=== PATIENT | female | born 1940 | race Caucasian/White ===

== ENCOUNTER 2018-04-16 10:54 | Inpatient (IN) | payer MEDICARE, OTHER ==
--- NOTE | 2018-04-16 11:23 | ERPHSYRPT ---
- History of Present Illness Time Seen by Provider: 04/16/18 11:18 Source: patient Patient Subjective Stated Complaint: pt reports feeling short of breath the last 3-4 days. states she also noticed swelling to her feet that is abnormal for her. pt reports she has not had any medical care in 40 years. Triage Nursing Assessment: pt is aox3, pupils perrl, pt afebrile, pt short of breath at rest, pt is able to speak in 3-4 word sentences, pt lung sounds are diminished with some crackles to the bases bilateral. radial pulses are strong and equal. +2 pitting edema noted to the bilateral extremities. intermittent productive cough noted upon exam. pt skin pale warm dry. Physician History: The patient is a 78-year-old female with her complaining of increasing shortness of breath for the last 4 days. Also for the last 4 days, her feet have been swelling. She has not seen a medical doctor in the last 40 years. She denies chest pain or fever. She denies nausea or vomiting. When she goes to bed at night and tries to lay flat, she becomes short of breath. She then sits up in the recliner and can breathe okay sleep. She has no local doctor. She has smoked cigarettes for many years and continues to smoke. She was brought in by ambulance and was given an albuterol nebulizer treatment and Solu- Medrol by IV. She is feeling better now. Timing/Duration: day(s) (4), gradual onset, worse Activities at Onset: none Severity of Dyspnea-Max: moderate Severity of Dyspnea-Current: moderate Possible Cause: no prior episodes, smoke exposure Modifying Factors: Improves With: lying down (worse) Associated Symptoms: cough, edema, ankle swelling, leg swelling Allergies/Adverse Reactions: No Known Drug Allergies Allergy (Unverified 04/16/18 11:11) Home Medications: No Reportable Medications [No Reported Medications] 04/16/18 [History] Hx Tetanus, Diphtheria Vaccination/Date Given: No Hx Influenza Vaccination/Date Given: No Hx Pneumococcal Vaccination/Date Given: No Immunizations Up to Date: Yes - Review of Systems Constitutional: No Fever, No Chills Eyes: No Symptoms Ears, Nose, & Throat: No Symptoms Respiratory: Cough, Dyspnea Cardiac: Edema Abdominal/Gastrointestinal: No Abdominal Pain, No Nausea, No Vomiting, No Diarrhea Genitourinary Symptoms: No Dysuria Musculoskeletal: No Back Pain, No Neck Pain Skin: No Rash Neurological: No Dizziness, No Focal Weakness, No Sensory Changes Psychological: No Symptoms Endocrine: No Symptoms Hematologic/Lymphatic: No Symptoms Immunological/Allergic: No Symptoms All Other Systems: Reviewed and Negative - Past Medical History Pertinent Past Medical History: Yes Cardiac History: Hypertension - Past Surgical History Past Surgical History: No - Social History Smoking Status: Current every day smoker Drug Use: none Patient Lives Alone: No - Female History Hx Now: No - Nursing Vital Signs Nursing Vital Signs: Initial Vital Signs Temperature 97.8 F 04/16/18 10:55 Pulse Rate 114 H 04/16/18 10:55 Respiratory Rate 26 H 04/16/18 10:55 Blood Pressure 205/140 04/16/18 10:55 O2 Sat by Pulse Oximetry 90 L 04/16/18 10:55 Pain Scale Pain Intensity 0 - Physical Exam General Appearance: mild distress, thin Eye Exam: PERRL/EOMI Ears, Nose, Throat Exam: hearing grossly normal Neck Exam: normal inspection, supple Respiratory Exam: diminished breath sounds, prolonged expirations, crackles/ rales, No wheezing Cardiovascular/Chest Exam: regular rate/rhythm, murmur (III/IV), edema ( bilateral feet) Abdominal/Gastrointestinal Exam: soft, No tenderness, No distention, No mass Rectal Exam: not done Extremity Exam: non-tender, normal range of motion, normal inspection, no calf tenderness, no pedal edema Neurologic Exam: alert, oriented x 3, cooperative, pharmaceutical analyst II-XII nml as tested, sensation nml, No motor deficits Skin Exam: normal color, warm, No dry SpO2 Interpretation: borderline oxygenation SpO2: 90 Oxygen Delivery: Nasal Cannula (2) - Course EKG Interpreted by Me: RATE, Sinus Rhythm, NORMAL AXIS, NORMAL INTERVALS, NORMAL QRS, NORMAL ST-T - Radiology Exams Chest X-ray Interpretation: Interpreted by me, Other (COPD, granulomas, no effusion, no consolidation.) - CT Exams Chest CT Interpretation: Tele-radiologist Report (Per Dr Wiley), Other (bronchitis and interstitial pneumonitis; no focal consolidation; ) Ordered Tests: Active Orders 24 hr Category Date Time Status EKG-ER Only STAT Care 04/16/18 11:24 Active IV Insertion STAT Care 04/16/18 11:24 Active Oxygen-ED Only NASAL CANNULA 2 lpm Care 04/16/18 11:24 Active Pulse Oximetry (ED) STAT Care 04/16/18 11:24 Active CHEST 2 VIEWS (PA AND LAT) Stat Exams 04/16/18 11:41 Taken CHEST WITH CONTRAST [CT] Stat Exams 04/16/18 13:25 Taken CBC W DIFF Stat Lab 04/16/18 11:45 Completed CMP Stat Lab 04/16/18 11:45 Completed Lactic Acid Stat Lab 04/16/18 11:50 Completed Manual Differential NC Stat Lab 04/16/18 11:45 Completed NT PRO BNP Stat Lab 04/16/18 11:45 Completed TROPONIN Q3H Lab 04/16/18 11:45 Completed TROPONIN Q3H Lab 04/16/18 14:30 Ordered TROPONIN Q3H Lab 04/16/18 17:30 Ordered TROPONIN Q3H Lab 04/16/18 20:30 Ordered TROPONIN Q3H Lab 04/16/18 23:30 Ordered Medication Summary Discontinued Medications Generic Name Dose Route Start Last Admin Trade Name Freq PRN Reason Stop Dose Admin Furosemide 40 mg 04/16/18 11:24 04/16/18 11:43 Lasix 40 Mg/4 Ml IV 04/16/18 11:25 40 mg STAT ONE Administration Furosemide Confirm 04/16/18 11:30 Lasix 40 Mg/4 Ml Administered 04/16/18 11:31 Dose 40 mg .ROUTE .STK-MED ONE Labetalol HCl 20 mg 04/16/18 13:19 04/16/18 13:24 Trandate 20 Mg/5 Ml Syringe IV 04/16/18 13:20 20 mg STAT ONE Administration Labetalol HCl Confirm 04/16/18 13:21 Trandate 100 Mg/20 Ml Mdv For Drip Administered 04/16/18 13:22 Dose 100 mg IV .STK-MED ONE Lab/Rad Data: Laboratory Result Diagrams 04/16/18 11:45 04/16/18 11:45 Laboratory Results 04/16/18 04/16/18 04/16/18 Range/Units 11:50 11:45 11:45 WBC (4.0-10.5) K/mm3 RBC (4.1-5.4) M/mm3 Hgb (12.0-16.0) gm/dl Hct (35-47) % MCV (78-100) fl MCH (26-32) pg MCHC (32-36) g/dl RDW (11.5-14.0) % Plt Count (150-450) K/mm3 MPV (6-9.5) fl Absolute Granulocytes (1.4-6.9) Segmented Neutrophils (36.0-66.0) % Lymphocytes (Manual) (24-44) % Monocytes (Manual) (0.0-12.0) % Platelet Estimate (NORMAL) RBC Morphology Poikilocytosis Anisocytosis Sodium 138 (137-145) mmol/L Potassium 4.4 (3.5-5.1) mmol/L Chloride 93 L (98-107) mmol/L Carbon Dioxide 36 H (22-30) mmol/L Anion Gap 12.8 (5-15) MEQ/L BUN 16 (7-17) mg/dL Creatinine 0.85 (0.52-1.04) mg/dL Estimated GFR > 60.0 ML/MIN Glucose 110 H (74-106) mg/dL Lactic Acid 1.3 (0.4-2.0) Calcium 9.3 (8.4-10.2) mg/dL Total Bilirubin 0.40 (0.2-1.3) mg/dL AST 28 (14-36) U/L ALT 18 (0-35) U/L Alkaline Phosphatase 118 (38-126) U/L Troponin I 0.041 H* (0.000-0.034) ng/mL NT-Pro-B Natriuret Pep 3840 H (0-1800) pg/mL Serum Total Protein 7.1 (6.3-8.2) g/dL Albumin 4.2 (3.5-5.0) g/dL 04/16/18 Range/Units 11:45 WBC 13.3 H (4.0-10.5) K/mm3 RBC 4.49 (4.1-5.4) M/mm3 Hgb 9.6 L (12.0-16.0) gm/dl Hct 32.3 L (35-47) % MCV 71.9 L (78-100) fl MCH 21.3 L (26-32) pg MCHC 29.7 L (32-36) g/dl RDW 19.2 H (11.5-14.0) % Plt Count 508 H (150-450) K/mm3 MPV 9.5 (6-9.5) fl Absolute Granulocytes 11.36 H (1.4-6.9) Segmented Neutrophils 95 H (36.0-66.0) % Lymphocytes (Manual) 3 L (24-44) % Monocytes (Manual) 2 (0.0-12.0) % Platelet Estimate NORMAL (NORMAL) RBC Morphology ABNORMAL Poikilocytosis 1+ Anisocytosis 1+ Sodium (137-145) mmol/L Potassium (3.5-5.1) mmol/L Chloride (98-107) mmol/L Carbon Dioxide (22-30) mmol/L Anion Gap (5-15) MEQ/L BUN (7-17) mg/dL Creatinine (0.52-1.04) mg/dL Estimated GFR ML/MIN Glucose (74-106) mg/dL Lactic Acid (0.4-2.0) Calcium (8.4-10.2) mg/dL Total Bilirubin (0.2-1.3) mg/dL AST (14-36) U/L ALT (0-35) U/L Alkaline Phosphatase (38-126) U/L Troponin I (0.000-0.034) ng/mL NT-Pro-B Natriuret Pep (0-1800) pg/mL Serum Total Protein (6.3-8.2) g/dL Albumin (3.5-5.0) g/dL - Progress Progress: improved Air Movement: fair Blood Culture(s) Obtained: Yes Antibiotics given: No Discussed with : Jassi Will see patient in: hospital (full admit) (per Dr Keene) Counseled pt/family regarding: lab results, diagnosis, rad results - Departure Time of Disposition: 14:53 Departure Disposition: In-patient Admission (per Dr Keene) Clinical Impression: Dyspnea, HTN (hypertension) Condition: Stable Critical Care Time: No Referrals: ARNOLD FRANCO [Primary Care Provider] -
[2018-04-16] MEDS ORDERED: Lasix 40 MG/4 ML IV ONE (11:24)
[2018-04-16] MEDS ORDERED: Lasix 40 MG/4 ML ONE (11:30)
[2018-04-16 12:25] LABS: ALBUMIN 4.2 g/dL (3.5-5.0); ALKALINE PHOSPHATASE 118 U/L (38-126); ANION GAP 12.8 MEQ/L (5-15); BLOOD UREA NITROGEN 16 mg/dL (7-17); CHLORIDE 93 mmol/L (98-107); Calcium 9.3 mg/dL (8.4-10.2); Carbon Dioxide 36 mmol/L (22-30); Creatinine 1 0.85 mg/dL (0.52-1.04); Glucose 110 mg/dL (74-106); NT PRO BNP 3840 pg/mL (0-1800); Potassium 4.4 mmol/L (3.5-5.1); SGOT/AST 28 U/L (14-36); SGPT/ALT 18 U/L (0-35); SODIUM 138 mmol/L (137-145); Total Protein 7.1 g/dL (6.3-8.2)
[2018-04-16 12:27] LABS: Granulocyte Absolute (ANC) 11.36 (1.4-6.9); Hematocrit 32.3 % (35-47); Hemoglobin 9.6 gm/dl (12.0-16.0); Mean Cell Volume 71.9 fl (78-100); Mean Corpuscular Hgb Concent. 29.7 g/dl (32-36); Mean Platelet Volume 9.5 fl (6-9.5); Platelet Count 508 K/mm3 (150-450); Red Blood Count 4.49 M/mm3 (4.1-5.4); Red Cell Distribution Width 19.2 % (11.5-14.0); White Blood Count 13.3 K/mm3 (4.0-10.5)
[2018-04-16 12:32] LABS: Mean Corpuscular Hemoglobin 21.3 pg (26-32)
[2018-04-16] MEDS ORDERED: TRANDATE 20 MG/5 ML SYRINGE IV ONE (13:19)
[2018-04-16 13:21] LABS: Lymphocytes 3 % (24-44); Monocyte 2 % (0.0-12.0); Neutrophils 95 % (36.0-66.0); Total Cells Counted 100
[2018-04-16] MEDS ORDERED: TRANDATE 100 MG/20 ML MDV FOR DRIP IV ONE (13:21)
[2018-04-16 13:23] LABS: ANISOCYTOSIS 1+; Platelet Estimate NORMAL (NORMAL); Poikilocytosis 1+
[2018-04-16] MEDS ORDERED: PROVENTIL 2.5 MG/3 ML NEB IH SCH (15:13)
[2018-04-16] MEDS ORDERED: Sodium Chloride 0.9% 1000 ML 1,000 ML IV SCH (15:13)
[2018-04-16] MEDS ORDERED: DUONEB 0.5-3 MG/3 ml Neb IH ONE (16:05)
[2018-04-16] MEDS: DUONEB 0.5-3 MG/3 ml Neb IH SCH ×3 (16:06→23:47)
[2018-04-16] MEDS: ROCEPHIN 1 Gm-D5w 50 ml Bag** 1 G/50 ML IVPB IV SCH (16:07)
[2018-04-16] MEDS: solu-MEDROL 125 MG IV SCH ×2 (18:03→23:33)
[2018-04-16] MEDS: LOPRESSOR 5 MG/5 ML INJECTION IV SCH ×2 (18:03→23:33)
--- NOTE | 2018-04-16 19:42 | XRAY ---
Indication: Cough and short of breath. Multiple contiguous axial images obtained through the chest using 80 cc Isovue 370 contrast. Comparison: None Lungs are hyperinflated with minimal pulmonary emphysema, minimal scattered fibrosis/scarring, and a few calcified granulomas. Mild bronchial wall thickening greatest in both lower lobes. No suspicious pulmonary mass, infiltrate, or effusion. Heart is not enlarged. Thoracic aorta is ectatic and moderately arteriosclerotic. Descending aorta is tortuous. Danube mediastinal and tiny right hilar calcified lymph nodes. No pathologic mediastinal/hilar lymphadenopathy. Bony thorax intact with minimal degenerative changes throughout the spine. Limited upper abdomen demonstrates fatty liver, right renal micro-calculus, and incompletely visualized 6 cm infrarenal AAA. Impression: 1. Mild bronchial wall thickening favoring bronchitis. No consolidation or effusion. 2. Pulmonary emphysema and evidence for old granulomatous disease. 3. Incompletely visualized AAA. Ectatic and tortuous thoracic aorta. 4. Right renal micro-calculus and fatty liver. Comment: Preliminary interpretation was made by [facility]. No discrepancy.
--- NOTE | 2018-04-16 19:44 | XRAY ---
Indication: Cough and short of breath. Comparison: None PA/lateral chest hyperinflated and clear with incidental mediastinal/pulmonary calcified granulomas. Heart is not enlarged. Descending aorta tortuous. Bony thorax intact with mild degenerative changes. Impression: Nonacute hyperinflated chest with chronic features.
[2018-04-16] MEDS: TYLENOL 325 MG PO PRN (20:06)
[2018-04-17] MEDS: TYLENOL 325 MG PO PRN (01:52)
[2018-04-17] MEDS: DUONEB 0.5-3 MG/3 ml Neb IH SCH ×6 (03:48→23:13)
[2018-04-17] MEDS: solu-MEDROL 125 MG IV SCH ×3 (05:10→22:49)
[2018-04-17] MEDS: LOPRESSOR 5 MG/5 ML INJECTION IV SCH ×3 (05:10→18:01)
[2018-04-17 05:43] LABS: Hematocrit 32.3 % (35-47); Hemoglobin 9.6 gm/dl (12.0-16.0); Mean Cell Volume 71.3 fl (78-100); Mean Corpuscular Hgb Concent. 29.7 g/dl (32-36); Mean Platelet Volume 9.5 fl (6-9.5); Platelet Count 488 K/mm3 (150-450); Red Blood Count 4.53 M/mm3 (4.1-5.4); Red Cell Distribution Width 19.4 % (11.5-14.0); White Blood Count 9.2 K/mm3 (4.0-10.5)
[2018-04-17 05:57] LABS: Mean Corpuscular Hemoglobin 21.1 pg (26-32)
[2018-04-17 06:17] LABS: ANION GAP 13.7 MEQ/L (5-15); BLOOD UREA NITROGEN 22 mg/dL (7-17); CHLORIDE 87 mmol/L (98-107); Calcium 8.8 mg/dL (8.4-10.2); Carbon Dioxide 39 mmol/L (22-30); Creatinine 1 0.95 mg/dL (0.52-1.04); Glucose 143 mg/dL (74-106); Potassium 3.9 mmol/L (3.5-5.1); SODIUM 136 mmol/L (137-145)
[2018-04-17] MEDS ORDERED: CIMETIDINE 400 MG PO PRN (06:58)
[2018-04-17] MEDS ORDERED: Pepcid 20 MG PO PRN (06:59)
[2018-04-17 08:28] LABS: Slide Review YES
[2018-04-17] MEDS: Cardizem CD 120 MG PO SCH (10:14)
[2018-04-17] MEDS: ROCEPHIN 1 Gm-D5w 50 ml Bag** 1 G/50 ML IVPB IV SCH (10:14)
--- NOTE | 2018-04-17 12:24 | PCM.HP ---
History of Present Illness - Chief Complaint Chief Complaint: Dyspnea for 1 week History of Present Illness: The patient is a 78-year-old female with her complaining of increasing shortness of breath for the last 4 days. Also for the last 4 days, her feet have been swelling. She has not seen a medical doctor in the last 40 years. She denies chest pain or fever. She denies nausea or vomiting. When she goes to bed at night and tries to lay flat, she becomes short of breath. She then sits up in the recliner and can breathe okay sleep. She has no local doctor. She has smoked cigarettes for many years and continues to smoke. - Review of Systems Constitutional: No Fever, No Chills Eyes: No Symptoms Ears, Nose, & Throat: No Symptoms Respiratory: No Cough, No Short Of Breath Cardiac: No Chest Pain, No Edema, No Syncope Abdominal/Gastrointestinal: No Abdominal Pain, No Nausea, No Vomiting, No Diarrhea Genitourinary Symptoms: No Dysuria Musculoskeletal: No Back Pain, No Neck Pain Skin: No Rash Neurological: No Dizziness, No Focal Weakness, No Sensory Changes Psychological: No Symptoms Endocrine: No Symptoms Hematologic/Lymphatic: No Symptoms Immunological/Allergic: No Symptoms Medications & Allergies Home Medications: Home Medication List Cimetidine [Tagamet] 400 mg PO DAILY PRN PRN 04/16/18 [History Confirmed ] Allergies/Adverse Reactions: Allergies Allergy/AdvReac Type Severity Reaction Status Date / Time No Known Drug Allergies Allergy Unverified 04/16/18 15:14 - Past Medical History Past Medical History: Yes Neurological History: No Pertinent History ENT History: Cataracts Cardiac History: No Pertinent History, Hypertension Respiratory History: No Pertinent History Endocrine Medical History: No Pertinent History Musculoskelatal History: No Pertinent History GI Medical History: Ulcer History: No Pertinent History Pyscho-Social History: No Pertinent History Reproductive Disorders: No Pertinent History - Female History Are you now?: No - Past Surgical History Past Surgical History: No Neuro Surgical History: No Pertinent History Cardiac History: No Pertinent History GI Surgical History: No Pertinent History Genitourinary Surgical Hx: No Pertinent History Musculskeletal Surgical Hx: No Pertinent History Female Surgical History: No Pertinent History - Social History Smoking Status: Current every day smoker Alcohol: None Drug Use: none - Physical Exam Vital Signs: Vital Signs - 24 hr Temp Pulse Resp BP Pulse Ox 04/17/18 11:45 97.6 F 104 H 18 147/79 96 04/17/18 10:59 94 H 18 98 04/17/18 07:51 98.1 F 96 H 20 155/75 93 L 04/17/18 07:05 96 H 20 95 04/17/18 04:27 98.5 F 95 H 20 194/95 98 04/17/18 03:48 95 H 20 98 04/16/18 23:47 101 H 20 96 04/16/18 23:43 97.9 F 94 H 20 169/80 93 L 04/16/18 19:55 100 H 22 92 L 04/16/18 19:43 98.3 F 105 H 22 170/90 93 L 04/16/18 16:06 89 20 95 04/16/18 15:48 93 L 04/16/18 15:30 97.7 F 91 H 20 170/85 98 04/16/18 15:02 88 20 150/84 95 04/16/18 14:59 90 L 04/16/18 13:27 96 H 20 171/112 93 L 04/16/18 13:16 112 H 20 189/115 92 L Oxygen-Last 24 hours O2 Percentage 2 Liters = 28% O2 Percentage 3 Liters = 32% O2 Percentage 2 Liters = 28% O2 Percentage 2 Liters = 28% O2 Percentage 2 Liters = 28% O2 Percentage 2 Liters = 28% O2 Percentage 2 Liters = 28% O2 Percentage 2 Liters = 28% General Appearance: no apparent distress, alert Neurologic Exam: alert, oriented x 3, cooperative, normal mood/affect, nml cerebellar function, nml station & gait, sensation nml, No motor deficits Eye Exam: PERRL/EOMI, eyes nml inspection Ears, Nose, Throat Exam: normal ENT inspection, TMs normal, pharynx normal, moist mucous membranes Neck Exam: normal inspection, non-tender, supple, full range of motion Respiratory Exam: normal breath sounds, lungs clear, No respiratory distress Cardiovascular Exam: regular rate/rhythm, normal heart sounds, normal peripheral pulses Gastrointestinal/Abdomen Exam: soft, normal bowel sounds, No tenderness, No mass Back Exam: normal inspection, normal range of motion, No CVA tenderness, No vertebral tenderness Extremity Exam: normal inspection, normal range of motion, pelvis stable Skin Exam: normal color, warm, dry, No rash Lymphatic Exam: No adenopathy Results - Labs Lab/Micro Results: Lab Results-Last 24 Hours 04/16/18 04/16/18 04/16/18 Range/Units 11:45 11:45 11:45 WBC 13.3 H (4.0-10.5) K/mm3 RBC 4.49 (4.1-5.4) M/mm3 Hgb 9.6 L (12.0-16.0) gm/dl Hct 32.3 L (35-47) % MCV 71.9 L (78-100) fl MCH 21.3 L (26-32) pg MCHC 29.7 L (32-36) g/dl RDW 19.2 H (11.5-14.0) % Plt Count 508 H (150-450) K/mm3 MPV 9.5 (6-9.5) fl Absolute Granulocytes 11.36 H (1.4-6.9) Segmented Neutrophils 95 H (36.0-66.0) % Lymphocytes (Manual) 3 L (24-44) % Monocytes (Manual) 2 (0.0-12.0) % Platelet Estimate NORMAL (NORMAL) RBC Morphology ABNORMAL Poikilocytosis 1+ Anisocytosis 1+ Sodium 138 (137-145) mmol/L Potassium 4.4 (3.5-5.1) mmol/L Chloride 93 L (98-107) mmol/L Carbon Dioxide 36 H (22-30) mmol/L Anion Gap 12.8 (5-15) MEQ/L BUN 16 (7-17) mg/dL Creatinine 0.85 (0.52-1.04) mg/dL Estimated GFR > 60.0 ML/MIN Glucose 110 H (74-106) mg/dL Calcium 9.3 (8.4-10.2) mg/dL Total Bilirubin 0.40 (0.2-1.3) mg/dL AST 28 (14-36) U/L ALT 18 (0-35) U/L Alkaline Phosphatase 118 (38-126) U/L Troponin I 0.041 H* (0.000-0.034) ng/mL NT-Pro-B Natriuret Pep 3840 H (0-1800) pg/mL Serum Total Protein 7.1 (6.3-8.2) g/dL Albumin 4.2 (3.5-5.0) g/dL Slides for Path Review 04/16/18 04/16/18 04/16/18 Range/Units 14:37 17:40 21:00 WBC (4.0-10.5) K/mm3 RBC (4.1-5.4) M/mm3 Hgb (12.0-16.0) gm/dl Hct (35-47) % MCV (78-100) fl MCH (26-32) pg MCHC (32-36) g/dl RDW (11.5-14.0) % Plt Count (150-450) K/mm3 MPV (6-9.5) fl Absolute Granulocytes (1.4-6.9) Segmented Neutrophils (36.0-66.0) % Lymphocytes (Manual) (24-44) % Monocytes (Manual) (0.0-12.0) % Platelet Estimate (NORMAL) RBC Morphology Poikilocytosis Anisocytosis Sodium (137-145) mmol/L Potassium (3.5-5.1) mmol/L Chloride (98-107) mmol/L Carbon Dioxide (22-30) mmol/L Anion Gap (5-15) MEQ/L BUN (7-17) mg/dL Creatinine (0.52-1.04) mg/dL Estimated GFR ML/MIN Glucose (74-106) mg/dL Calcium (8.4-10.2) mg/dL Total Bilirubin (0.2-1.3) mg/dL AST (14-36) U/L ALT (0-35) U/L Alkaline Phosphatase (38-126) U/L Troponin I 0.042 H* 0.039 H* 0.041 H* (0.000-0.034) ng/mL NT-Pro-B Natriuret Pep (0-1800) pg/mL Serum Total Protein (6.3-8.2) g/dL Albumin (3.5-5.0) g/dL Slides for Path Review 04/16/18 04/17/18 04/17/18 Range/Units 23:30 05:00 05:00 WBC 9.2 (4.0-10.5) K/mm3 RBC 4.53 (4.1-5.4) M/mm3 Hgb 9.6 L (12.0-16.0) gm/dl Hct 32.3 L (35-47) % MCV 71.3 L (78-100) fl MCH 21.1 L (26-32) pg MCHC 29.7 L (32-36) g/dl RDW 19.4 H (11.5-14.0) % Plt Count 488 H (150-450) K/mm3 MPV 9.5 (6-9.5) fl Absolute Granulocytes (1.4-6.9) Segmented Neutrophils (36.0-66.0) % Lymphocytes (Manual) (24-44) % Monocytes (Manual) (0.0-12.0) % Platelet Estimate (NORMAL) RBC Morphology Poikilocytosis Anisocytosis Sodium 136 L (137-145) mmol/L Potassium 3.9 (3.5-5.1) mmol/L Chloride 87 L (98-107) mmol/L Carbon Dioxide 39 H (22-30) mmol/L Anion Gap 13.7 (5-15) MEQ/L BUN 22 H (7-17) mg/dL Creatinine 0.95 (0.52-1.04) mg/dL Estimated GFR > 60.0 ML/MIN Glucose 143 H (74-106) mg/dL Calcium 8.8 (8.4-10.2) mg/dL Total Bilirubin (0.2-1.3) mg/dL AST (14-36) U/L ALT (0-35) U/L Alkaline Phosphatase (38-126) U/L Troponin I 0.041 H* (0.000-0.034) ng/mL NT-Pro-B Natriuret Pep (0-1800) pg/mL Serum Total Protein (6.3-8.2) g/dL Albumin (3.5-5.0) g/dL Slides for Path Review YES - Radiology Impressions Radiology Exams & Impressions: Radiology Procedures Category Date Time Status CHEST 2 VIEWS (PA AND LAT) Stat Exams 04/16/18 11:41 Completed CHEST WITH CONTRAST [CT] Stat Exams 04/16/18 13:25 Completed ECHO W/2D AND DOPPLER [US] Routine Exams 04/17/18 09:58 Taken - Other Procedures and Tests Respiratory Therapy 04/16/18 15:13 Oxygen NASAL CANNULA 2 lpm 04/16/18 16:11 Peak Expiratory Flow Rate ONCE 04/16/18 16:13 Respiratory Therapy Assessment DAILY Assessment/Plan (1) Dyspnea Current Visit: Yes Status: Acute Code(s): R06.00 - DYSPNEA, UNSPECIFIED (2) Emphysema of lung Current Visit: Yes Status: Acute Code(s): J43.9 - EMPHYSEMA, UNSPECIFIED (3) HTN (hypertension) Current Visit: Yes Status: Acute Code(s): I10 - ESSENTIAL (PRIMARY) HYPERTENSION
[2018-04-17] MEDS ORDERED: Sodium Chloride 0.9% 10 ML FLUSH Syringe IV PRN (13:15)
[2018-04-17] MEDS: Sodium Chloride 0.9% 10 ML FLUSH Syringe IV SCH ×2 (14:41→22:48)
[2018-04-18] MEDS: LOPRESSOR 5 MG/5 ML INJECTION IV SCH ×3 (00:42→13:29)
[2018-04-18] MEDS: DUONEB 0.5-3 MG/3 ml Neb IH SCH ×4 (03:37→15:19)
--- NOTE | 2018-04-18 08:51 | ECHO ---
Transthoracic echocardiographic examination and color Doppler was done on 04/17/2018. INDICATION: Supraventricular tachycardia, shortness of breath, hypertension. IMPRESSION: 1) NO REGIONAL WALL MOTION ABNORMALITY. ESTIMATED GLOBAL LEFT VENTRICULAR EJECTION FRACTION OF AROUND 50 TO 60%. 2) SEVERE AORTIC STENOSIS WITH PEAK TRANSAORTIC GRADIENT OF 62 MMG AND A MEAN GRADIENT OF 29 MM OF MERCURY. TJE CALCULATED AORTIC VALVE AREA 1.0 CM/SQ. 3) SEVERE AORTIC REGURGITATION. 4) MILD MITRAL REGURGITATION. 5) MILD TRICUSPID REGURGITATION. RIGHT VENTRICULAR SYSTOLIC PRESSURE OF 38 MM OF MERCURY. 6) LEFT VENTRICULAR HYPERTROPHY. 7) LEFT VENTRICULAR DIASTOLIC DYSFUNCTION. 8) MILDLY DILATED DESCENDING THORACIC AORTA. The left ventricle is visualized and demonstrated adequate motion of all the segments. Estimated global left ventricular ejection fraction between 50 and 60%. There is concentric left ventricular hypertrophy. The mitral valve is calcified but opens adequately. There is mild mitral regurgitation. Left atrium is normal. Tissue Doppler study of the lateral mitral annulus is suggestive of left ventricular diastolic dysfunction. The aortic valve is heavily calcified and has limited opening. The peak transaortic gradient is about 62 mm of Mercury with a mean gradient of 29 mm of Mercury. The calculated aortic valve area is 1.0 cm/sq. There is some associated severe aortic regurgitation. The aortic root is calcified but appears to be normal. The right side chambers are normal. There is mild tricuspid regurgitation. The right ventricular systolic pressure of 38 mm of Mercury. The descending thoracic aorta is mildly dilated.
[2018-04-18] MEDS: Cardizem CD 120 MG PO SCH (09:59)
[2018-04-18] MEDS: solu-MEDROL 125 MG IV SCH (09:59)
[2018-04-18] MEDS: ROCEPHIN 1 Gm-D5w 50 ml Bag** 1 G/50 ML IVPB IV SCH (09:59)
--- NOTE | 2018-04-18 11:43 | PCM.NOTE ---
Date and Time: 04/18/18 1143 Subjective Assessment: doing better - Review of Systems Constitutional: No Fever, No Chills Eyes: No Symptoms Ears, Nose, & Throat: No Symptoms Respiratory: No Cough, No Short Of Breath Cardiac: No Chest Pain, No Edema, No Syncope Abdominal/Gastrointestinal: No Abdominal Pain, No Nausea, No Vomiting, No Diarrhea Genitourinary Symptoms: No Dysuria Musculoskeletal: No Back Pain, No Neck Pain Skin: No Rash Neurological: No Dizziness, No Focal Weakness, No Sensory Changes Psychological: No Symptoms Endocrine: No Symptoms Hematologic/Lymphatic: No Symptoms Immunological/Allergic: No Symptoms Objective Exam General Appearance: no apparent distress, alert Neurologic Exam: alert, oriented x 3, cooperative, normal mood/affect, nml cerebellar function, sensation nml, No motor deficits Skin Exam: normal color, warm, dry Eye Exam: PERRL, EOMI, eyes nml inspection Ears, Nose, Throat Exam: normal ENT inspection, pharynx normal, moist mucous membranes Neck Exam: normal inspection, non-tender, supple, full range of motion Respiratory Exam: normal breath sounds, lungs clear, No respiratory distress Cardiovascular Exam: regular rate/rhythm, normal heart sounds Gastrointestinal/Abdomen Exam: soft, No tenderness, No mass Extremity Exam: normal inspection, normal range of motion Back Exam: normal inspection, normal range of motion, No CVA tenderness, No vertebral tenderness Pelvic Exam: deferred Rectal Exam: deferred OBJECTIVE DATA Vital Signs: Vital Signs - 24 hr Temp Pulse Resp BP Pulse Ox 04/18/18 11:29 108 H 20 94 L 04/18/18 08:00 96.5 F 94 H 18 175/96 92 L 04/18/18 07:08 94 H 18 92 L 04/18/18 04:00 98 F 98 H 17 145/86 92 L 04/18/18 03:37 98 H 17 92 L 04/18/18 00:00 98.3 F 102 H 16 144/70 94 L 04/17/18 23:13 102 H 16 94 L 04/17/18 20:00 98.4 F 96 H 22 157/74 93 L 04/17/18 19:43 93 H 18 91 L 04/17/18 15:44 98.2 F 87 18 123/67 92 L 04/17/18 14:51 90 20 93 L 04/17/18 11:45 97.6 F 104 H 18 147/79 96 Oxygen-Last 24 hours O2 Percentage 3 Liters = 32% O2 Percentage 3 Liters = 32% O2 Percentage 3 Liters = 32% O2 Percentage 3 Liters = 32% Pain Assessment - Last Documented Pain Intensity 4 Pain Scale Used 0-10 Pain Scale,FLACC Intake and Output: Intake & Output 04/15/18 04/16/18 04/17/18 04/18/18 11:59 11:59 11:59 11:59 Intake Total 1784 1220 Output Total 1050 Balance 734 1220 Weight 58.967 kg 56.8 kg 61.3 kg Radiology Exams: Radiology Procedures Category Date Time Status CHEST 2 VIEWS (PA AND LAT) Stat Exams 04/16/18 11:41 Completed CHEST WITH CONTRAST [CT] Stat Exams 04/16/18 13:25 Completed ECHO W/2D AND DOPPLER [US] Routine Exams 04/17/18 09:58 Draft Multi-Disciplinary Progress Notes: Multi-Disciplinary Progress Notes 04/18/18 10:37 Case Management Note by Leatha Hewitt PATIENT REQUESTED TO SPEAK WITH ME AT THIS TIME. SHE WAS VERY DISPLEASED WITH THE [facility] REP, SHE STATED HE WAS "WEIRD" AND DID NOT GIVE HER ANY OPTIONS ABOUT HER OXYGEN WHEN SHE ASKED. I SPOKE WITH LIT OLMEDO, SHE APOLOGIZED AND WILL BE IN TO SPEAK WITH PATIENT OR WILL SEND HER TRADE SHOW SPECIALIST TO SPEAK WITH PATIENT. PATIENT WAS SATISFIED WITH THIS. Initialized on 04/18/18 10:37 - END OF NOTE Assessment/Plan (1) Dyspnea Current Visit: Yes Status: Acute Code(s): R06.00 - DYSPNEA, UNSPECIFIED (2) Emphysema of lung Current Visit: Yes Status: Acute Assessment & Plan: we will start patient on duoneb nebulizer treatment and oxygen 3 l NC. Code(s): J43.9 - EMPHYSEMA, UNSPECIFIED (3) HTN (hypertension) Current Visit: Yes Status: Acute Qualifiers: Hypertension type: essential hypertension Qualified Code(s): I10 - Essential (primary) hypertension Code(s): I10 - ESSENTIAL (PRIMARY) HYPERTENSION (4) Aortic stenosis, severe Current Visit: Yes Status: Acute Code(s): I35.0 - NONRHEUMATIC AORTIC (VALVE ) STENOSIS (5) Aortic valve stenosis with insufficiency Current Visit: Yes Status: Acute Qualifiers: Cardiac valve disease etiology: nonrheumatic Qualified Code(s): I35.2 - Nonrheumatic aortic (valve) stenosis with insufficiency Assessment & Plan: IMPRESSION: 1) NO REGIONAL WALL MOTION ABNORMALITY. ESTIMATED GLOBAL LEFT VENTRICULAR EJECTION FRACTION OF AROUND 50 TO 60%. 2) SEVERE AORTIC STENOSIS WITH PEAK TRANSAORTIC GRADIENT OF 62 MMG AND A MEAN GRADIENT OF 29 MM OF MERCURY. TJE CALCULATED AORTIC VALVE AREA 1.0 CM/SQ. 3) SEVERE AORTIC REGURGITATION. 4) MILD MITRAL REGURGITATION. 5) MILD TRICUSPID REGURGITATION. RIGHT VENTRICULAR SYSTOLIC PRESSURE OF 38 MM OF MERCURY. 6) LEFT VENTRICULAR HYPERTROPHY. 7) LEFT VENTRICULAR DIASTOLIC DYSFUNCTION. 8) MILDLY DILATED DESCENDING THORACIC AORTA. Code(s): I35.2 - NONRHEUMATIC AORTIC (VALVE) STENOSIS WITH INSUFFICIENCY
[2018-04-18 12:10] VITALS: BP 170/89; O2SAT 93
--- NOTE | 2018-04-18 12:34 | PCM.DS ---
Discharge Summary Date of Admission: 04/16/18 15:11 Admitting Physician: DB EUBANKS Primary Care Provider: VIRGEN FRANCO Allergies Allergies No Known Drug Allergies Allergy (Unverified 04/16/18 15:14) Hospital Summary - Hospital Course Hospital Course: Last Vital Signs Temp 98.5 F 04/18/18 12:00 Pulse 101 H 04/18/18 12:00 Resp 17 04/18/18 12:00 BP 170/89 04/18/18 12:00 Pulse Ox 93 L 04/18/18 12:00 Allergies No Known Drug Allergies Allergy (Unverified 04/16/18 15:14) Active Medications Acetaminophen (Tylenol 325 Mg) 650 mg PO Q6H PRN PRN PRN Reason: PAIN AND/OR FEVER Stop: 05/16/18 15:12 Last Admin: 04/17/18 01:52 Dose: 650 mg Albuterol/Ipratropium (Duoneb 0.5-3 Mg/3 Ml Neb) 3 ml IH Q4HRT BR[place]GET[place] Stop: 05/16/18 15:12 Last Admin: 04/18/18 11:26 Dose: 3 ml Diltiazem HCl (Cardizem Cd 120 Mg) 120 mg PO DAILY BR[place]GET[place] Stop: 05/17/18 09:59 Last Admin: 04/18/18 09:59 Dose: 120 mg Famotidine (Pepcid 20 Mg) 40 mg PO DAILY PRN PRN Stop: 05/17/18 06:58 Ceftriaxone Sodium/Dextrose (Rocephin 1 Gm-D5w 50 Ml Bag) 1 g in 50 mls @ 100 mls/hr IV Q24H10 BR[place] Stop: 05/16/18 15:59 Last Admin: 04/18/18 09:59 Dose: 100 mls/hr Methylprednisolone Sodium Succinate (Solu-Medrol 125 Mg) 60 mg IV BID BR[place]GET[place] Stop: 05/17/18 21:59 Last Admin: 04/18/18 09:59 Dose: 60 mg Metoprolol Tartrate (Lopressor 5 Mg/5 Ml Injection) 2.5 mg IV Q6HT BR[place]GET[facility] Stop: 05/16/18 17:59 Last Admin: 04/18/18 06:44 Dose: 2.5 mg Sodium Chloride (Sodium Chloride 0.9% 10 Ml Flush Syringe) 10 ml IV Q8HT [facility] Stop: 05/17/18 13:59 Last Admin: 04/17/18 22:48 Dose: 10 ml Sodium Chloride (Sodium Chloride 0.9% 10 Ml Flush Syringe) 10 ml IV PRN PRN Stop: 05/17/18 13:14 Intake & Output 04/18/18 04/19/18 11:59 11:59 Intake Total 1220 Balance 1220 Weight 61.3 kg Orders 04/17/18 13:15 NaCl 0.9% 10 ML FLUSH [Sodium Chloride 0.9% 10 ML FLUSH Syringe] 10 ml IV PRN PRN 04/17/18 14:00 NaCl 0.9% 10 ML FLUSH [Sodium Chloride 0.9% 10 ML FLUSH Syringe] 10 ml IV Q8HT 04/17/18 22:00 Methylprednis Sod Succ 125 mg* [solu-MEDROL 125 MG] 60 mg IV BID 04/18/18 04:20 Pulse Oximetry .continuos 04/18/18 09:28 Qualify for Home Oxygen TODAY Microbiology 04/16/18 15:04 Blood Blood Culture - Preliminary NO GROWTH TO DATE 04/16/18 14:52 Blood Blood Culture - Preliminary NO GROWTH TO DATE Patient wants to go home. She is informed about her echo reports which shows severe aortic stenosis and regurgitation. Will arrange cardiology consult. - Vitals & Intake/Output Vital Signs: Vital Signs Temperature 98.5 F 04/18/18 12:00 Pulse Rate 101 H 04/18/18 12:00 Respiratory Rate 17 04/18/18 12:00 Blood Pressure 170/89 04/18/18 12:00 O2 Sat by Pulse Oximetry 93 L 04/18/18 12:00 Oxygen-Last Documented O2 Percentage 3 Liters = 32% Intake & Output: Intake & Output 04/16/18 04/17/18 04/18/18 04/19/18 11:59 11:59 11:59 11:59 Intake Total 1784 1220 Output Total 1050 Balance 734 1220 Weight 58.967 kg 56.8 kg 61.3 kg - Lab Result Diagrams: 04/17/18 05:00 04/17/18 05:00 Micro Results-Entire Visit: Microbiology 04/16/18 15:04 Blood Culture - Preliminary Blood NO GROWTH TO DATE 04/16/18 14:52 Blood Culture - Preliminary Blood NO GROWTH TO DATE - Radiology Exams Ordered Rad Exams-Entire Visit: Radiology Procedures Category Date Time Status CHEST 2 VIEWS (PA AND LAT) Stat Exams 04/16/18 11:41 Completed CHEST WITH CONTRAST [CT] Stat Exams 04/16/18 13:25 Completed ECHO W/2D AND DOPPLER [US] Routine Exams 04/17/18 09:58 Draft - Procedures and Test Procedures and Tests throughout Hospitalization: Therapy Orders & Screens 04/16/18 15:13 Oxygen NASAL CANNULA 2 lpm Comment: Respiratory Therapy Consult ROUTINE Comment: Reason For Exam: 04/16/18 15:54 Smoking Cessation Education ONCE Comment: Diagnosis: Dyspnea Smoking Status: Current every day smoker 04/16/18 16:11 Peak Expiratory Flow Rate ONCE Comment: Reason For Exam: Diagnosis: Dyspnea 04/16/18 16:13 Respiratory Therapy Assessment DAILY Comment: Diagnosis: Dyspnea 04/16/18 16:31 Respiratory Nebulizer Q4H Comment: Diagnosis: Dyspnea 04/18/18 09:28 Qualify for Home Oxygen TODAY Comment: Diagnosis: Dyspnea for 1 week Discharge Exam General Appearance: no apparent distress, alert Neurologic Exam: alert, oriented x 3, cooperative, normal mood/affect, nml cerebellar function, sensation nml, No motor deficits Skin Exam: normal color, warm, dry Eye Exam: PERRL, EOMI, eyes nml inspection Ears, Nose, Throat Exam: normal ENT inspection, pharynx normal, moist mucous membranes Neck Exam: normal inspection, non-tender, supple, full range of motion Respiratory Exam: crackles/rales, rhonchi, wheezing, No respiratory distress Cardiovascular Exam: murmur Gastrointestinal/Abdomen Exam: soft, No tenderness, No mass Extremity Exam: normal inspection, normal range of motion Back Exam: normal inspection, normal range of motion, No CVA tenderness, No vertebral tenderness Pelvic Exam: deferred Rectal Exam: deferred Final Diagnosis/Problem List - Final Discharge Diagnosis/Problem (1) Aortic valve stenosis with insufficiency Current Visit: Yes Status: Acute Priority: High Assessment & Plan: Laboratory Tests 04/16/18 04/16/18 04/16/18 11:45 11:45 11:45 WBC 13.3 H RBC 4.49 Hgb 9.6 L Hct 32.3 L MCV 71.9 L MCH 21.3 L MCHC 29.7 L RDW 19.2 H Plt Count 508 H MPV 9.5 Absolute Granulocytes 11.36 H Segmented Neutrophils 95 H Lymphocytes (Manual) 3 L Monocytes (Manual) 2 Platelet Estimate NORMAL RBC Morphology ABNORMAL Poikilocytosis 1+ Anisocytosis 1+ Sodium 138 Potassium 4.4 Chloride 93 L Carbon Dioxide 36 H Anion Gap 12.8 BUN 16 Creatinine 0.85 Estimated GFR > 60.0 Glucose 110 H Lactic Acid Calcium 9.3 Total Bilirubin 0.40 AST 28 ALT 18 Alkaline Phosphatase 118 Troponin I 0.041 H* NT-Pro-B Natriuret Pep 3840 H Serum Total Protein 7.1 Albumin 4.2 Slides for Path Review 04/16/18 04/16/18 04/16/18 11:50 14:37 17:40 WBC RBC Hgb Hct MCV MCH MCHC RDW Plt Count MPV Absolute Granulocytes Segmented Neutrophils Lymphocytes (Manual) Monocytes (Manual) Platelet Estimate RBC Morphology Poikilocytosis Anisocytosis Sodium Potassium Chloride Carbon Dioxide Anion Gap BUN Creatinine Estimated GFR Glucose Lactic Acid 1.3 Calcium Total Bilirubin AST ALT Alkaline Phosphatase Troponin I 0.042 H* 0.039 H* NT-Pro-B Natriuret Pep Serum Total Protein Albumin Slides for Path Review 04/16/18 04/16/18 04/17/18 21:00 23:30 05:00 WBC 9.2 RBC 4.53 Hgb 9.6 L Hct 32.3 L MCV 71.3 L MCH 21.1 L MCHC 29.7 L RDW 19.4 H Plt Count 488 H MPV 9.5 Absolute Granulocytes Segmented Neutrophils Lymphocytes (Manual) Monocytes (Manual) Platelet Estimate RBC Morphology Poikilocytosis Anisocytosis Sodium Potassium Chloride Carbon Dioxide Anion Gap BUN Creatinine Estimated GFR Glucose Lactic Acid Calcium Total Bilirubin AST ALT Alkaline Phosphatase Troponin I 0.041 H* 0.041 H* NT-Pro-B Natriuret Pep Serum Total Protein Albumin Slides for Path Review YES 04/17/18 05:00 WBC RBC Hgb Hct MCV MCH MCHC RDW Plt Count MPV Absolute Granulocytes Segmented Neutrophils Lymphocytes (Manual) Monocytes (Manual) Platelet Estimate RBC Morphology Poikilocytosis Anisocytosis Sodium 136 L Potassium 3.9 Chloride 87 L Carbon Dioxide 39 H Anion Gap 13.7 BUN 22 H Creatinine 0.95 Estimated GFR > 60.0 Glucose 143 H Lactic Acid Calcium 8.8 Total Bilirubin AST ALT Alkaline Phosphatase Troponin I NT-Pro-B Natriuret Pep Serum Total Protein Albumin Slides for Path Review IMPRESSION: 1) NO REGIONAL WALL MOTION ABNORMALITY. ESTIMATED GLOBAL LEFT VENTRICULAR EJECTION FRACTION OF AROUND 50 TO 60%. 2) SEVERE AORTIC STENOSIS WITH PEAK TRANSAORTIC GRADIENT OF 62 MMG AND A MEAN GRADIENT OF 29 MM OF MERCURY. TJE CALCULATED AORTIC VALVE AREA 1.0 CM/SQ. 3) SEVERE AORTIC REGURGITATION. 4) MILD MITRAL REGURGITATION. 5) MILD TRICUSPID REGURGITATION. RIGHT VENTRICULAR SYSTOLIC PRESSURE OF 38 MM OF MERCURY. 6) LEFT VENTRICULAR HYPERTROPHY. 7) LEFT VENTRICULAR DIASTOLIC DYSFUNCTION. 8) MILDLY DILATED DESCENDING THORACIC AORTA. will consider home health as outpatient. (2) Dyspnea Current Visit: Yes Status: Resolved (3) Emphysema of lung Current Visit: Yes Status: Acute Assessment & Plan: we will start patient on duoneb nebulizer treatment and oxygen 3 l NC. (4) HTN (hypertension) Current Visit: Yes Status: Acute (5) Aortic stenosis, severe Current Visit: Yes Status: Acute - Discharge Discharge Date: 04/18/18 Disposition: Home, Self-Care Condition: Stable Prescriptions: New Diltiazem HCl 120 mg [Cardizem CD 120 MG] 120 mg PO DAILY #30 cap.sr.24h Albuterol/Ipratropium 3ml Neb* [DUONEB 0.5-3 MG/3 ml Neb] 3 ml IH Q4HRT # 120 ampul.neb Azithromycin [Zithromax Tri-Joseph] 500 mg PO DAILY 3 Days #3 tablet Continue Cimetidine [Tagamet] 400 mg PO DAILY PRN PRN PRN Reason: ulcers Instructions: High Blood Pressure in Adults, Shortness of Breath (Dyspnea) Additional Instructions: WEAR 3L PER NASAL CANNULA AT ALL TIMES Follow up with: CLINT LEONARD [ACTIVE STAFF] - 05/05/18 11:45 am ([facility] ) DB EUBANKS MD [ACTIVE STAFF] - 04/26/18 9:15 am ([facility])
[2018-04-18 15:22] VITALS: PULSE 90
== END 2018-04-18 16:25 | disposition home health service (06) | DRG 307 ==
LOC: ED 10:54 → MED SURG 15:11
PROVIDERS: ADMIT General Practice; ATTEND General Practice
DX: I35.2 Nonrheumatic aortic (valve) stenosis with insufficiency (principal); J43.9 Emphysema, unspecified; R06.00 Dyspnea, unspecified; I35.0 Nonrheumatic aortic (valve) stenosis; Z79.899 Other long term (current) drug therapy; I10 Essential (primary) hypertension; M79.89 Other specified soft tissue disorders
CPT/HCPCS: 36000; 36415; 71046; 71260; 80048; 80053; 83605; 83880; 84484; 85025; 85027; 87040; 93005; 93306; 94150; 94640; 94760; 94762; 96374; 96375; 99285; J0696; J1940; J2930; A9270-GY

== ENCOUNTER 2019-04-04 13:21 | Emergency (ER) | payer MEDICARE, OTHER ==
[2019-04-04] MEDS ORDERED: Sodium Chloride 0.9% 1000 ML 2,000 ML IV STA (13:31)
--- NOTE | 2019-04-04 13:31 | ERPHSYRPT ---
- History of Present Illness Time Seen by Provider: 04/04/19 13:24 Source: patient, EMS Exam Limitations: no limitations Physician History: Dyspnea that has worsened at least over the past 12 hours, possibly longer. Patient has a history of a AAA and a recent aortic valve replacement surgery. Timing/Duration: yesterday Activities at Onset: none Severity of Dyspnea-Max: severe Severity of Dyspnea-Current: severe Possible Cause: occasional episodes Modifying Factors: Improves With: activity, lying down Associated Symptoms: anxiety, chest pain/discomfort, No edema, No fever, No insomnia, No loss of appetite, No lightheadedness, No wheezing, No weakness, No ankle swelling, No hemoptysis, No calf pain, No dizziness, No heaviness, No heart racing, No lightheadedness, No leg swelling, No muscle spasms feet, No muscle spasms hands, No painful breathing, No productive cough, No sweating, No tingling face International travel in last 2 weeks: No Allergies/Adverse Reactions: No Known Drug Allergies Allergy (Verified 04/04/19 13:35) Home Medications: Diltiazem HCl [Dilt-Xr] 240 mg PO DAILY 04/04/19 [History] Meclizine HCl 25 mg [Antivert 25 mg] 25 mg PO BID 04/04/19 [History] Naproxen 500 mg PO BID 04/04/19 [History] Valsartan 80 mg PO DAILY 04/04/19 [History] Hx Tetanus, Diphtheria Vaccination/Date Given: No Hx Influenza Vaccination/Date Given: No Hx Pneumococcal Vaccination/Date Given: No - Review of Systems Constitutional: No Fever, No Chills Eyes: No Symptoms, No Eye Pain, No Photophobia Ears, Nose, & Throat: No Symptoms, Other (dry mouth), No Nose Congestion, No Nose Discharge, No Mouth Pain, No Throat Swelling, No Painful Swallowing Respiratory: Dyspnea, Dyspnea on Exertion (GENAO), No Cough Cardiac: Chest Pain, No Edema, No Syncope Abdominal/Gastrointestinal: Abdominal Pain, No Nausea, No Vomiting, No Diarrhea , No Hematemesis, No Hematochezia, No Melena Genitourinary Symptoms: No Dysuria, No Hematuria, No Flank Pain Musculoskeletal: Back Pain, No Neck Pain Skin: No Rash Neurological: No Dizziness, No Focal Weakness, No Sensory Changes Psychological: No Symptoms Endocrine: No Symptoms All Other Systems: Reviewed and Negative - Past Medical History Pertinent Past Medical History: Yes Neurological History: No Pertinent History ENT History: Cataracts Cardiac History: No Pertinent History, Hypertension Respiratory History: No Pertinent History Endocrine Medical History: No Pertinent History Musculoskeletal History: No Pertinent History GI Medical History: Ulcer History: No Pertinent History Psycho-Social History: No Pertinent History Female Reproductive Disorders: No Pertinent History - Past Surgical History Past Surgical History: No Neuro Surgical History: No Pertinent History Cardiac: No Pertinent History Gastrointestinal: No Pertinent History Genitourinary: No Pertinent History Musculoskeletal: No Pertinent History Female Surgical History: No Pertinent History - Social History Smoking Status: Current every day smoker Drug Use: none Patient Lives Alone: No - Nursing Vital Signs Nursing Vital Signs: Initial Vital Signs Temperature 98.5 F 04/04/19 13:26 Pulse Rate 106 H 04/04/19 13:26 Respiratory Rate 25 H 04/04/19 13:26 O2 Sat by Pulse Oximetry 100 04/04/19 13:26 Pain Scale Pain Intensity 4 - Physical Exam General Appearance: mild distress, alert, anxiety Eye Exam: PERRL/EOMI, No scleral icterus Ears, Nose, Throat Exam: normal pharynx Neck Exam: normal inspection, supple, No Brudzinski, No Kernig's, No meningismus Respiratory Exam: normal breath sounds, lungs clear, airway intact, No respiratory distress Cardiovascular/Chest Exam: normal heart sounds, regular rate/rhythm, murmur (+ III/), normal peripheral pulses, No edema Abdominal/Gastrointestinal Exam: soft, tenderness, No distention, No mass Extremity Exam: non-tender, normal range of motion, normal inspection, no calf tenderness, no pedal edema Peripheral Pulses Exam: dorsalis-pedis (R): 2+, dorsalis-pedis (L): 2+ Neurologic Exam: alert, oriented x 3, cooperative, 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 Interval cardiac valve replacement surgery. Stable mediastinal calcified nodes. Bony thorax intact with mild osteopenia and minimal degenerative changes. Overall impression: nonacute hyperinflated chest with chronic features. Per radiologist's interpretation) - CT Exams Abdomen/Pelvis CT Interpretation: Other (per radiologist interpretation: Moderate scattered vascular calcifications with fusiform AAA measuring 5.8 x 6.3 cm in greatest actual dimension and at least 9 cm in length. No free fluid/air. nonobstructing right renal micrococcus I., left renal cyst, and a Brewer catheter in situ. Colonic diverticulosis without diverticulitis. Left adrenal adenoma and evidence for old granulomatous disease.) Ordered Tests: Active Orders 24 hr Category Date Time Status Assistant Real Estate Manager STAT Care 04/04/19 13:27 Active Catheter-[place] Brewer STAT Care 04/04/19 13:26 Active EKG-ER Only STAT Care 04/04/19 13:26 Active IV Insertion STAT Care 04/04/19 13:26 Active Oxygen-ED Only Nasal Cannula 4 lpm Care 04/04/19 13:26 Active Pulse Oximetry (ED) STAT Care 04/04/19 13:26 Active ABDOMEN AND PELVIS W/0 CONTRAS [CT] Stat Exams 04/04/19 15:25 Completed CHEST 1 VIEW (PORTABLE) Stat Exams 04/04/19 13:27 Completed AMYLASE Stat Lab 04/04/19 14:05 Completed BLOOD CULTURE Stat Lab 04/04/19 14:17 Received CBC W DIFF Stat Lab 04/04/19 12:30 Results CMP Stat Lab 04/04/19 12:30 Completed CULTURE,URINE Stat Lab 04/04/19 13:54 Ordered Ferritin Stat Lab 04/04/19 14:05 Completed LDH-LACTATE DEHYDROGENASE Stat Lab 04/04/19 14:05 Completed LIPASE Stat Lab 04/04/19 14:05 Completed Lactic Acid Stat Lab 04/04/19 13:35 Completed MAGNESIUM Stat Lab 04/04/19 12:30 Completed Manual Differential NC Stat Lab 04/04/19 12:30 Results NT PRO BNP Stat Lab 04/04/19 12:30 Completed PROTIME WITH INR Stat Lab 04/04/19 12:30 Completed PTT Stat Lab 04/04/19 12:30 Completed Pathologist Review Stat Lab 04/04/19 12:30 Results TROPONIN Q3H Lab 04/04/19 14:05 Completed TROPONIN Q3H Lab 04/04/19 16:27 Completed TROPONIN Q3H Lab 04/04/19 19:30 Ordered TROPONIN Q3H Lab 04/04/19 22:30 Ordered TROPONIN Q3H Lab 04/05/19 01:30 Ordered UA W/RFX UR CULTURE Stat Lab 04/04/19 14:00 Completed VENOUS BLOOD GAS Stat Lab 04/04/19 13:35 Completed Medication Summary Discontinued Medications Generic Name Dose Route Start Last Admin Trade Name Freq PRN Reason Stop Dose Admin Sodium Chloride 2,000 mls @ 999 mls/hr 04/04/19 13:31 04/04/19 16:16 Sodium Chloride 0.9% 1000 Ml IV 04/04/19 15:31 Infused .Q2H1M STA Infusion Sodium Chloride Confirm 04/04/19 14:02 Sodium Chloride 0.9% 1000 Ml Administered 04/04/19 14:03 Dose 1,000 mls @ ud .ROUTE .STK-MED ONE Sodium Chloride Confirm 04/04/19 16:43 Sodium Chloride 0.9% 1000 Ml Administered 04/04/19 16:44 Dose 1,000 mls @ ud .ROUTE .STK-MED ONE Lab/Rad Data: Laboratory Result Diagrams 04/04/19 12:30 04/04/19 12:30 Laboratory Results 04/04/19 04/04/19 04/04/19 Range/Units 16:27 14:05 14:05 WBC (4.0-10.5) K/mm3 RBC (4.1-5.4) M/mm3 Hgb (12.0-16.0) gm/dl Hct (35-47) % MCV (78-100) fl MCH (26-32) pg MCHC (32-36) g/dl RDW (11.5-14.0) % Plt Count (150-450) K/mm3 MPV (6-9.5) fl Smear Path Review PT (9.95-12.35) SECONDS INR (0.8-3.0) APTT (25.3-37.0) SECONDS pO2/FiO2 Ratio % VBG pH (7.32-7.42) VBG pCO2 at Pat Temp (42-55) mm/Hg VBG pO2 at Pat Temp (25-40) mm/Hg VBG HCO3 (22-28) meq/L VBG O2 Sat (Yariel) (95-100) VBG Base Excess (-2.0-2.0) VBG Hemoglobin VBG Carboxyhemoglobin (0.0-6.9) % T HGB POC Potassium (3.5-5.1) Sodium (137-145) mmol/L Potassium (3.5-5.1) mmol/L Chloride (98-107) mmol/L Carbon Dioxide (22-30) mmol/L Anion Gap (5-15) MEQ/L BUN (7-17) mg/dL Creatinine (0.52-1.04) mg/dL Estimated GFR ML/MIN Glucose (74-106) mg/dL Lactic Acid (0.4-2.0) Calcium (8.4-10.2) mg/dL Magnesium (1.6-2.3) mg/dL Iron 30 L (37-170) ug/dL Ferritin 4.43 L (11.1-264) ng/mL Total Bilirubin (0.2-1.3) mg/dL AST (14-36) U/L ALT (0-35) U/L Alkaline Phosphatase (38-126) U/L Lactate Dehydrogenase 242 (120-246) U/L Troponin I < 0.012 (0.000-0.034) ng/mL NT-Pro-B Natriuret Pep (0-1800) pg/mL Serum Total Protein (6.3-8.2) g/dL Albumin (3.5-5.0) g/dL Amylase (30-110) U/L Lipase (23-300) U/L Urine Color (YELLOW) Urine Appearance (CLEAR) Urine pH (5-6) Ur Specific [place] (1.005-1.025) Urine Protein (Negative) Urine Ketones (NEGATIVE) Urine Blood (0-5) Amarjit/ul Urine Nitrite (NEGATIVE) Urine Bilirubin (NEGATIVE) Urine Urobilinogen (0-1) mg/dL Ur Leukocyte Esterase (NEGATIVE) Urine WBC (Auto) (0-5) /HPF Urine RBC (Auto) (0-2) /HPF U Epithel Cells (Auto) (FEW) /HPF Urine Bacteria (Auto) (NEGATIVE) /HPF Urine Culture Reflexed (NO) Urine Glucose (NEGATIVE) mg/dL ABO Group Rh Factor Antibody Screen (NEGATIVE) Crossmatch (COMPATIBLE) 04/04/19 04/04/19 04/04/19 Range/Units 14:05 14:05 14:05 WBC (4.0-10.5) K/mm3 RBC (4.1-5.4) M/mm3 Hgb (12.0-16.0) gm/dl Hct (35-47) % MCV (78-100) fl MCH (26-32) pg MCHC (32-36) g/dl RDW (11.5-14.0) % Plt Count (150-450) K/mm3 MPV (6-9.5) fl Smear Path Review PT (9.95-12.35) SECONDS INR (0.8-3.0) APTT (25.3-37.0) SECONDS pO2/FiO2 Ratio % VBG pH (7.32-7.42) VBG pCO2 at Pat Temp (42-55) mm/Hg VBG pO2 at Pat Temp (25-40) mm/Hg VBG HCO3 (22-28) meq/L VBG O2 Sat (Yariel) (95-100) VBG Base Excess (-2.0-2.0) VBG Hemoglobin VBG Carboxyhemoglobin (0.0-6.9) % T HGB POC Potassium (3.5-5.1) Sodium (137-145) mmol/L Potassium (3.5-5.1) mmol/L Chloride (98-107) mmol/L Carbon Dioxide (22-30) mmol/L Anion Gap (5-15) MEQ/L BUN (7-17) mg/dL Creatinine (0.52-1.04) mg/dL Estimated GFR ML/MIN Glucose (74-106) mg/dL Lactic Acid (0.4-2.0) Calcium (8.4-10.2) mg/dL Magnesium (1.6-2.3) mg/dL Iron (37-170) ug/dL Ferritin (11.1-264) ng/mL Total Bilirubin (0.2-1.3) mg/dL AST (14-36) U/L ALT (0-35) U/L Alkaline Phosphatase (38-126) U/L Lactate Dehydrogenase (120-246) U/L Troponin I (0.000-0.034) ng/mL NT-Pro-B Natriuret Pep (0-1800) pg/mL Serum Total Protein (6.3-8.2) g/dL Albumin (3.5-5.0) g/dL Amylase 100 (30-110) U/L Lipase 91 (23-300) U/L Urine Color (YELLOW) Urine Appearance (CLEAR) Urine pH (5-6) Ur Specific [place] (1.005-1.025) Urine Protein (Negative) Urine Ketones (NEGATIVE) Urine Blood (0-5) Amarjit/ul Urine Nitrite (NEGATIVE) Urine Bilirubin (NEGATIVE) Urine Urobilinogen (0-1) mg/dL Ur Leukocyte Esterase (NEGATIVE) Urine WBC (Auto) (0-5) /HPF Urine RBC (Auto) (0-2) /HPF U Epithel Cells (Auto) (FEW) /HPF Urine Bacteria (Auto) (NEGATIVE) /HPF Urine Culture Reflexed (NO) Urine Glucose (NEGATIVE) mg/dL ABO Group O Rh Factor POSITIVE Antibody Screen NEGATIVE (NEGATIVE) Crossmatch COMPATIBLE COMPATIBLE (COMPATIBLE) 04/04/19 04/04/19 04/04/19 Range/Units 14:05 14:00 13:35 WBC (4.0-10.5) K/mm3 RBC (4.1-5.4) M/mm3 Hgb (12.0-16.0) gm/dl Hct (35-47) % MCV (78-100) fl MCH (26-32) pg MCHC (32-36) g/dl RDW (11.5-14.0) % Plt Count (150-450) K/mm3 MPV (6-9.5) fl Smear Path Review PT (9.95-12.35) SECONDS INR (0.8-3.0) APTT (25.3-37.0) SECONDS pO2/FiO2 Ratio 21.0 % VBG pH 7.42 (7.32-7.42) VBG pCO2 at Pat Temp 51 (42-55) mm/Hg VBG pO2 at Pat Temp 65 H (25-40) mm/Hg VBG HCO3 33.1 H* (22-28) meq/L VBG O2 Sat (Yariel) 96.2 (95-100) VBG Base Excess 8.1 H (-2.0-2.0) VBG Hemoglobin 3.6 L* VBG Carboxyhemoglobin 5.4 (0.0-6.9) % T HGB POC Potassium 4.6 (3.5-5.1) Sodium (137-145) mmol/L Potassium (3.5-5.1) mmol/L Chloride (98-107) mmol/L Carbon Dioxide (22-30) mmol/L Anion Gap (5-15) MEQ/L BUN (7-17) mg/dL Creatinine (0.52-1.04) mg/dL Estimated GFR ML/MIN Glucose (74-106) mg/dL Lactic Acid 1.3 (0.4-2.0) Calcium (8.4-10.2) mg/dL Magnesium (1.6-2.3) mg/dL Iron (37-170) ug/dL Ferritin (11.1-264) ng/mL Total Bilirubin (0.2-1.3) mg/dL AST (14-36) U/L ALT (0-35) U/L Alkaline Phosphatase (38-126) U/L Lactate Dehydrogenase (120-246) U/L Troponin I < 0.012 (0.000-0.034) ng/mL NT-Pro-B Natriuret Pep (0-1800) pg/mL Serum Total Protein (6.3-8.2) g/dL Albumin (3.5-5.0) g/dL Amylase (30-110) U/L Lipase (23-300) U/L Urine Color STRAW (YELLOW) Urine Appearance CLEAR (CLEAR) Urine pH 5.0 (5-6) Ur Specific [place] 1.015 (1.005-1.025) Urine Protein NEGATIVE (Negative) Urine Ketones NEGATIVE (NEGATIVE) Urine Blood NEGATIVE (0-5) Amarjit/ul Urine Nitrite NEGATIVE (NEGATIVE) Urine Bilirubin NEGATIVE (NEGATIVE) Urine Urobilinogen NEGATIVE (0-1) mg/dL Ur Leukocyte Esterase NEGATIVE (NEGATIVE) Urine WBC (Auto) NONE (0-5) /HPF Urine RBC (Auto) NONE (0-2) /HPF U Epithel Cells (Auto) NONE (FEW) /HPF Urine Bacteria (Auto) NONE (NEGATIVE) /HPF Urine Culture Reflexed ORDERED SEPARATELY (NO) Urine Glucose NEGATIVE (NEGATIVE) mg/dL ABO Group Rh Factor Antibody Screen (NEGATIVE) Crossmatch (COMPATIBLE) 04/04/19 04/04/19 04/04/19 Range/Units 12:30 12:30 12:30 WBC 16.7 H (4.0-10.5) K/mm3 RBC 1.77 L* (4.1-5.4) M/mm3 Hgb 3.2 L* (12.0-16.0) gm/dl Hct 12.3 L (35-47) % MCV 69.5 L (78-100) fl MCH 18.0 L (26-32) pg MCHC 26.0 L (32-36) g/dl RDW 18.3 H (11.5-14.0) % Plt Count 546 H (150-450) K/mm3 MPV 9.7 H (6-9.5) fl Smear Path Review Pending PT 12.5 H (9.95-12.35) SECONDS INR 1.10 (0.8-3.0) APTT 30.6 (25.3-37.0) SECONDS pO2/FiO2 Ratio % VBG pH (7.32-7.42) VBG pCO2 at Pat Temp (42-55) mm/Hg VBG pO2 at Pat Temp (25-40) mm/Hg VBG HCO3 (22-28) meq/L VBG O2 Sat (Yariel) (95-100) VBG Base Excess (-2.0-2.0) VBG Hemoglobin VBG Carboxyhemoglobin (0.0-6.9) % T HGB POC Potassium (3.5-5.1) Sodium 138 (137-145) mmol/L Potassium 4.6 (3.5-5.1) mmol/L Chloride 102 (98-107) mmol/L Carbon Dioxide 30 (22-30) mmol/L Anion Gap 10.6 (5-15) MEQ/L BUN 48 H (7-17) mg/dL Creatinine 1.33 H (0.52-1.04) mg/dL Estimated GFR 40.9 ML/MIN Glucose 112 H (74-106) mg/dL Lactic Acid (0.4-2.0) Calcium 8.5 (8.4-10.2) mg/dL Magnesium 2.0 (1.6-2.3) mg/dL Iron (37-170) ug/dL Ferritin (11.1-264) ng/mL Total Bilirubin 0.30 (0.2-1.3) mg/dL AST 21 (14-36) U/L ALT 14 (0-35) U/L Alkaline Phosphatase 68 (38-126) U/L Lactate Dehydrogenase (120-246) U/L Troponin I (0.000-0.034) ng/mL NT-Pro-B Natriuret Pep 367 (0-1800) pg/mL Serum Total Protein 5.6 L (6.3-8.2) g/dL Albumin 2.9 L (3.5-5.0) g/dL Amylase (30-110) U/L Lipase (23-300) U/L Urine Color (YELLOW) Urine Appearance (CLEAR) Urine pH (5-6) Ur Specific [place] (1.005-1.025) Urine Protein (Negative) Urine Ketones (NEGATIVE) Urine Blood (0-5) Amarjit/ul Urine Nitrite (NEGATIVE) Urine Bilirubin (NEGATIVE) Urine Urobilinogen (0-1) mg/dL Ur Leukocyte Esterase (NEGATIVE) Urine WBC (Auto) (0-5) /HPF Urine RBC (Auto) (0-2) /HPF U Epithel Cells (Auto) (FEW) /HPF Urine Bacteria (Auto) (NEGATIVE) /HPF Urine Culture Reflexed (NO) Urine Glucose (NEGATIVE) mg/dL ABO Group Rh Factor Antibody Screen (NEGATIVE) Crossmatch (COMPATIBLE) - Progress Progress: improved, re-examined Air Movement: good Progress Note: 04/04/19 15:19 discussed the patient with Dr. Dent, hospitalist at [facility] as well as reviewed vitals. Dr. Dent would like LDH, haptoglobin, ferritin and iron studies performed as well as a CT of the abdomen and pelvis done and she accepted patient for admission and would like to call back after blood transfusion and CT scan results to determine patient's final placement in the hospital at [facility] in [place], [place]. 04/04/19 15:38 patient's systolic blood pressure is 91 on recent check. Patient's pulse 100 and sinus rhythm on automation qa lead. Patient's pulse ox 100% with nasal cannula assistance. I reviewed with patient and her family the plan and acceptance for transfer to [facility] in [place], [place] after blood transfusion and CT scan results. 04/04/19 16:[address] Garcia, ED attending at [facility] in [place], [place]. Dr Garcia accepted the patient for transfer. 04/04/19 17:48 Patient left via ALS ambulance for [facility]. Patient had improved hemodynamics with blood transfusion with a blood pressure of 110/60 on visualization with pulse in the 80-90s in sinus rhythm on the automation qa lead. Blood Culture(s) Obtained: Yes Antibiotics given: No Discussed with Dr.: Other (Dr Dent, Hospitalist at [place], [place]) - Departure Departure Disposition: Transfer Clinical Impression: Acute blood loss anemia, Hypotension due to blood loss Dyspnea Qualifiers: Dyspnea type: other forms of dyspnea Qualified Code(s): R06.09 - Other forms of dyspnea Condition: Serious Critical Care Time: Yes Critical Care Time(excluding separately billable procedures): Critical 30-74 mins Referrals: DB EUBANKS MD [Primary Care Provider] -
[2019-04-04 13:38] VITALS: O2SAT 100
[2019-04-04 13:47] LABS: Lactic Acid 1.3 (0.4-2.0); VBG BASE EXCESS 8.1 (-2.0-2.0); VBG CARBOXYHEMOGLOBIN 5.4 % T HGB (0.0-6.9); VBG HCO3- 33.1 meq/L (22-28); VBG O2 SATURATION 96.2 (95-100); VBG POTASSIUM 4.6 (3.5-5.1); VBG pH 7.42 (7.32-7.42)
[2019-04-04 13:50] LABS: VBG HEMOGLOBIN 3.6
--- NOTE | 2019-04-04 13:53 | XRAY ---
Indication: Chest pain and dyspnea. Comparison: April 16, 2018. Portable chest remains hyperinflated and clear again with a few incidental calcified granulomas. Heart is not enlarged with interval cardiac valve replacement surgery. Stable mediastinal calcified nodes. Bony thorax intact again with mild osteopenia and minimal degenerative changes. Impression: Nonacute hyperinflated chest with chronic features.
[2019-04-04] MEDS ORDERED: Sodium Chloride 0.9% 1000 ML 1,000 ML ONE ×2 (14:02→16:43)
[2019-04-04 14:14] LABS: INR 1.1 (0.8-3.0); PROTIME 12.5 SECONDS (9.95-12.35)
[2019-04-04 14:16] LABS: PTT 30.6 SECONDS (25.3-37.0)
[2019-04-04 14:23] LABS: Appearance CLEAR (CLEAR); Bilirubin NEGATIVE (NEGATIVE); Blood NEGATIVE Ery/ul (0-5); Glucose NEGATIVE (NEGATIVE); Ketones NEGATIVE (NEGATIVE); Leukocyte Esterase NEGATIVE (NEGATIVE); Nitrite NEGATIVE (NEGATIVE); Protein,Urine Dip NEGATIVE (Negative); Specific Gravity 1.015 (1.005-1.025); Urobilinogen NEGATIVE mg/dL (0-1)
[2019-04-04 14:27] LABS: Hematocrit 12.3 % (35-47); Mean Cell Volume 69.5 fl (78-100); Mean Platelet Volume 9.7 fl (6-9.5); Platelet Count 546 K/mm3 (150-450); Red Cell Distribution Width 18.3 % (11.5-14.0); White Blood Count 16.7 K/mm3 (4.0-10.5)
[2019-04-04 14:29] LABS: ALBUMIN 2.9 g/dL (3.5-5.0); ANION GAP 10.6 MEQ/L (5-15); BILIRUBIN,TOTAL 0.3 mg/dL (0.2-1.3); Calcium 8.5 mg/dL (8.4-10.2); Creatinine 1 1.33 mg/dL (0.52-1.04); Potassium 4.6 mmol/L (3.5-5.1); Total Protein 5.6 g/dL (6.3-8.2)
[2019-04-04 14:31] LABS: Hemoglobin 3.2 gm/dl (12.0-16.0); Red Blood Count 1.77 M/mm3 (4.1-5.4)
[2019-04-04 14:53] LABS: AMYLASE 100 U/L (30-110); LIPASE 91 U/L (23-300)
[2019-04-04 15:11] LABS: ABO TYPING O; Antibody Screen NEGATIVE (NEGATIVE); RH TYPING POSITIVE
[2019-04-04 15:12] LABS: CROSS MATCH (PRBC) COMPATIBLE (COMPATIBLE)
[2019-04-04 16:16] VITALS: PULSE 96
[2019-04-04 16:20] LABS: Ferritin 4.43 ng/mL (11.1-264)
--- NOTE | 2019-04-04 16:21 | XRAY ---
Indication: Anemia and dyspnea. History of AAA. Multiple contiguous axial images obtained through the abdomen and pelvis without contrast as ordered. Comparison: None Lung bases demonstrates left lower lobe calcified granulomas. No infiltrate or effusion. Heart is not enlarged. Moderate scattered vascular calcifications with fusiform AAA measuring 5.8 x 6.3 cm in greatest axial dimension and at least 9 cm in length. No free fluid/air. Noncontrasted stomach and bowel loops appear nonobstructed. Scattered descending and sigmoid diverticulosis without diverticulitis. Brewer balloon catheter empties the urinary bladder. Right kidney demonstrates 2 nonobstructing micro-calculi and left kidney demonstrates a 9 mm cortical cyst. A few calcified hepatic/splenic granulomas. 2 cm left adrenal adenoma. Remaining liver, gallbladder, pancreas, spleen, adrenal glands, kidneys, ureters, and uterus appear unremarkable for noncontrast exam. Osseous structures intact with mild degenerative changes throughout the spine. No ventral or inguinal hernias. Impression: 1. Scattered arteriosclerotic disease with distal AAA as detailed. 2. Nonobstructing right renal micro-calculi, left renal cyst, and Brewer catheter in situ. 3. Colonic diverticulosis without diverticulitis. 4. Left adrenal adenoma and evidence for old granulomatous disease. CTDI 22.38
[2019-04-04 17:00] VITALS: BP 90/60
[2019-04-05 00:56] LABS: ANISOCYTOSIS 1+; Lymphocytes 12 % (24-44); Monocyte 6 % (0.0-12.0); Neutrophils 82 % (36.0-66.0); Platelet Estimate INCREASED (NORMAL); Poikilocytosis 1+; Total Cells Counted 100
[2019-04-05 09:05] LABS: HAPTOGLOBIN 161 mg/dL (30-220)
[2019-04-05 09:21] LABS: TRANSFERRIN 290 mg/dL (200-360)
== END 2019-04-04 18:01 | disposition short-term general hospital (02) ==
LOC: ED 13:21
DX: D62 Acute posthemorrhagic anemia (principal); I95.9 Hypotension, unspecified; I10 Essential (primary) hypertension; I71.4 Abdominal aortic aneurysm, without rupture; Z95.2 Presence of prosthetic heart valve; Z79.899 Other long term (current) drug therapy
CPT/HCPCS: 36430; 51702; 74176; 80053; 81001; 82150; 82728; 82805; 83010; 83540; 83605; 83615; 83690; 83735; 83880; 84466; 84484; 85025; 85610; 85730; 86850; 86900; 86901; 86922; 87040; 87086; 93005; 93041; 96360; 96361; 99291; P9016; 36000; 36415; 71045; 94760; 99285

== ENCOUNTER 2019-09-11 09:00 | Inpatient (IN) | payer MEDICARE, OTHER ==
[2019-09-11] MEDS: ANTIVERT 25 MG PO SCH ×2 (16:33→21:10)
[2019-09-11] MEDS: Advair Hfa 115/21 Common canister IH SCH (17:45)
[2019-09-11 17:55] LABS: Hemoglobin 7.4 gm/dl (12.0-16.0); Mean Cell Volume 77.1 fl (78-100); Mean Corpuscular Hemoglobin 21.1 pg (26-32); Mean Corpuscular Hgb Concent. 27.4 g/dl (32-36); Mean Platelet Volume 9.3 fl (7.5-11.0); Platelet Count 302 K/mm3 (150-450); White Blood Count 11.5 K/mm3 (4.0-10.5)
[2019-09-11 18:09] LABS: ALBUMIN 3.9 g/dL (3.5-5.0); ALKALINE PHOSPHATASE 111 U/L (38-126); ANION GAP 7.5 MEQ/L (5-15); BLOOD UREA NITROGEN 23 mg/dL (7-17); CHLORIDE 100 mmol/L (98-107); Calcium 8.9 mg/dL (8.4-10.2); Carbon Dioxide 36 mmol/L (22-30); Creatinine 1 0.78 mg/dL (0.52-1.04); Glucose 111 mg/dL (74-106); Potassium 3.6 mmol/L (3.5-5.1); SGOT/AST 15 U/L (14-36); SGPT/ALT 7 U/L (0-35); SODIUM 140 mmol/L (137-145); Total Protein 7.3 g/dL (6.3-8.2)
[2019-09-11] MEDS: Sodium Chloride 0.9% 1000 ML 1,000 ML IV SCH (18:11)
[2019-09-11] MEDS: ROCEPHIN 1 Gm-D5w 50 ml Bag** 1 G/50 ML IVPB IV SCH (18:12)
[2019-09-11] MEDS: solu-MEDROL 125 MG IV SCH (18:13)
[2019-09-11] MEDS ORDERED: Protonix 40MG Tablet ONE (19:45)
[2019-09-11 19:48] LABS: Slide Review YES
[2019-09-11] MEDS: Protonix 40MG Tablet PO SCH (21:10)
[2019-09-11] MEDS ORDERED: ROCEPHIN 1 Gm-D5w 50 ml Bag** 1 G/50 ML IVPB IV SCH (22:00)
[2019-09-11] MEDS ORDERED: Zithromax 500 MG/ 250 ML NaCl Premix 500 MG/250 ML IVPB IV SCH (22:00)
[2019-09-12] MEDS: solu-MEDROL 125 MG IV SCH ×3 (01:22→17:41)
[2019-09-12 05:19] LABS: Hematocrit 25.9 % (35-47); Mean Cell Volume 77.5 fl (78-100); Mean Platelet Volume 9.8 fl (7.5-11.0); Platelet Count 290 K/mm3 (150-450); Red Blood Count 3.34 M/mm3 (4.1-5.4); Red Cell Distribution Width 17.8 % (11.5-14.0); White Blood Count 10.4 K/mm3 (4.0-10.5)
[2019-09-12 05:21] LABS: ALBUMIN 3.6 g/dL (3.5-5.0); ALKALINE PHOSPHATASE 97 U/L (38-126); ANION GAP 6.8 MEQ/L (5-15); BLOOD UREA NITROGEN 24 mg/dL (7-17); CHLORIDE 101 mmol/L (98-107); Calcium 8.7 mg/dL (8.4-10.2); Carbon Dioxide 36 mmol/L (22-30); Creatinine 1 0.79 mg/dL (0.52-1.04); Glucose 162 mg/dL (74-106); Potassium 4.4 mmol/L (3.5-5.1); SGOT/AST 14 U/L (14-36); SGPT/ALT 6 U/L (0-35); SODIUM 140 mmol/L (137-145); Total Protein 6.7 g/dL (6.3-8.2)
[2019-09-12] MEDS: Advair Hfa 115/21 Common canister IH SCH ×2 (07:11→17:39)
--- NOTE | 2019-09-12 08:40 | XRAY ---
Indication: Short of breath. Comparison: April 04, 2019. PA/lateral chest again hyperinflated and clear with incidental calcified granulomas. Heart is not enlarged again with cardiac valve replacement surgery. Stable mediastinal calcified nodes. Bony thorax intact again with mild osteopenia and degenerative changes. Impression: Stable nonacute hyperinflated chest with chronic features.
[2019-09-12] MEDS: ROCEPHIN 1 Gm-D5w 50 ml Bag** 1 G/50 ML IVPB IV SCH (09:55)
[2019-09-12] MEDS: DIOVAN 80 MG PO SCH (09:55)
[2019-09-12] MEDS: Cardizem CD 120 MG PO SCH (09:56)
[2019-09-12] MEDS: Protonix 40MG Tablet PO SCH (09:57)
[2019-09-12] MEDS: ANTIVERT 25 MG PO SCH ×2 (09:57→22:36)
[2019-09-12] MEDS ORDERED: DILTIAZEM HCL 240 MG PO SCH (10:00)
[2019-09-12] MEDS ORDERED: NON-FORMULARY ITEM (Fluticasone/Umeclidin/Vilanter [Trelegy Ellipta 100-62.5-25] 1 PUFF) IH SCH (10:00)
[2019-09-12] MEDS: PROTONIX 40 MG IV IV SCH ×2 (10:17→22:50)
--- NOTE | 2019-09-12 12:31 | PCM.HP.ADD ---
Addendum to History & Physical - History & Physical Addendum Addendum to History & Physical: This certifies that the History & Physical in the electronic chart reflects the current health status of the patient. If there are changes in the H&P these changes/exceptions are listed as follows.
--- NOTE | 2019-09-12 12:32 | PCM.NOTE ---
Date and Time: 09/12/19 1231 Subjective Assessment: lasr 24 hours events noted - Review of Systems Constitutional: No Fever, No Chills Eyes: No Symptoms Ears, Nose, & Throat: No Symptoms Respiratory: No Cough, No Short Of Breath Cardiac: No Chest Pain, No Edema, No Syncope Abdominal/Gastrointestinal: No Abdominal Pain, No Nausea, No Vomiting, No Diarrhea Genitourinary Symptoms: No Dysuria Musculoskeletal: No Back Pain, No Neck Pain Skin: No Rash Neurological: No Dizziness, No Focal Weakness, No Sensory Changes Psychological: No Symptoms Endocrine: No Symptoms Hematologic/Lymphatic: No Symptoms Immunological/Allergic: No Symptoms Objective Exam General Appearance: no apparent distress, alert Neurologic Exam: alert, oriented x 3, cooperative, normal mood/affect, nml cerebellar function, sensation nml, No motor deficits Skin Exam: normal color, warm, dry Eye Exam: PERRL, EOMI, eyes nml inspection Ears, Nose, Throat Exam: normal ENT inspection, pharynx normal, moist mucous membranes Neck Exam: normal inspection, non-tender, supple, full range of motion Respiratory Exam: normal breath sounds, lungs clear, No respiratory distress Cardiovascular Exam: regular rate/rhythm, normal heart sounds Gastrointestinal/Abdomen Exam: soft, No tenderness, No mass Extremity Exam: normal inspection, normal range of motion Back Exam: normal inspection, normal range of motion, No CVA tenderness, No vertebral tenderness Pelvic Exam: deferred Rectal Exam: deferred OBJECTIVE DATA Vital Signs: Vital Signs - 24 hr Temp Pulse Resp BP Pulse Ox 09/12/19 08:00 97.8 F 92 H 15 143/77 97 09/12/19 07:12 84 16 98 09/12/19 04:00 97.7 F 107 H 18 132/80 93 L 09/12/19 00:00 97.8 F 82 16 97/54 97 09/11/19 23:48 98 09/11/19 20:00 97.5 F 96 H 20 110/66 98 09/11/19 17:50 100 H 20 97 09/11/19 16:41 97.8 F 84 20 131/77 96 09/11/19 16:00 97.9 F 97 H 20 145/83 95 09/11/19 15:26 97.9 F 97 H 20 145/83 95 09/11/19 14:28 97.9 F 97 H 20 145/83 95 Pain Assessment - Last Documented Pain Intensity 0 Pain Scale Used 0-10 Pain Scale,FLACC Intake and Output: Intake & Output 09/10/19 09/11/19 09/12/19 09/13/19 11:59 11:59 11:59 11:59 Intake Total 1555 Output Total 300 Balance 1255 Weight 85.1 kg Lab Results: Lab Results-Last 24 Hours 09/11/19 09/11/19 09/11/19 Range/Units 17:06 17:50 17:50 WBC 11.5 H (4.0-10.5) K/mm3 RBC 3.50 L (4.1-5.4) M/mm3 Hgb 7.4 L (12.0-16.0) gm/dl Hct 27.0 L (35-47) % MCV 77.1 L (78-100) fl MCH 21.1 L (26-32) pg MCHC 27.4 L (32-36) g/dl RDW 18.0 H (11.5-14.0) % Plt Count 302 (150-450) K/mm3 MPV 9.3 (7.5-11.0) fl Sodium 140 (137-145) mmol/L Potassium 3.6 (3.5-5.1) mmol/L Chloride 100 (98-107) mmol/L Carbon Dioxide 36 H (22-30) mmol/L Anion Gap 7.5 (5-15) MEQ/L BUN 23 H (7-17) mg/dL Creatinine 0.78 (0.52-1.04) mg/dL Estimated GFR > 60.0 ML/MIN Glucose 111 H (74-106) mg/dL Calcium 8.9 (8.4-10.2) mg/dL Total Bilirubin 0.30 (0.2-1.3) mg/dL AST 15 (14-36) U/L ALT 7 (0-35) U/L Alkaline Phosphatase 111 (38-126) U/L Troponin I (0.000-0.034) ng/mL NT-Pro-B Natriuret Pep 333 (0-1800) pg/mL Serum Total Protein 7.3 (6.3-8.2) g/dL Albumin 3.9 (3.5-5.0) g/dL Slides for Path Review YES 09/11/19 09/12/19 09/12/19 Range/Units 17:50 04:31 04:31 WBC 10.4 (4.0-10.5) K/mm3 RBC 3.34 L (4.1-5.4) M/mm3 Hgb 7.0 L (12.0-16.0) gm/dl Hct 25.9 L (35-47) % MCV 77.5 L (78-100) fl MCH 21.0 L (26-32) pg MCHC 27.0 L (32-36) g/dl RDW 17.8 H (11.5-14.0) % Plt Count 290 (150-450) K/mm3 MPV 9.8 (7.5-11.0) fl Sodium 140 (137-145) mmol/L Potassium 4.4 D (3.5-5.1) mmol/L Chloride 101 (98-107) mmol/L Carbon Dioxide 36 H (22-30) mmol/L Anion Gap 6.8 (5-15) MEQ/L BUN 24 H (7-17) mg/dL Creatinine 0.79 (0.52-1.04) mg/dL Estimated GFR > 60.0 ML/MIN Glucose 162 H (74-106) mg/dL Calcium 8.7 (8.4-10.2) mg/dL Total Bilirubin 0.20 (0.2-1.3) mg/dL AST 14 (14-36) U/L ALT 6 (0-35) U/L Alkaline Phosphatase 97 (38-126) U/L Troponin I < 0.012 (0.000-0.034) ng/mL NT-Pro-B Natriuret Pep (0-1800) pg/mL Serum Total Protein 6.7 (6.3-8.2) g/dL Albumin 3.6 (3.5-5.0) g/dL Slides for Path Review Radiology Exams: Radiology Procedures Category Date Time Status ABDOMEN AND PELVIS W&WO CONTRA [CT] Urgent Exams 09/12/19 09:37 Ordered CHEST 2 VIEWS (PA AND LAT) Routine Exams 09/11/19 19:10 Completed Assessment/Plan (1) COPD exacerbation Current Visit: Yes Status: Acute Assessment & Plan: Last Vital Signs Temp 97.8 F 09/12/19 08:00 Pulse 92 H 09/12/19 08:00 Resp 15 09/12/19 08:00 BP 143/77 09/12/19 08:00 Pulse Ox 97 09/12/19 08:00 Allergies No Known Drug Allergies Allergy (Verified 04/04/19 13:35) Active Medications Diltiazem HCl (Cardizem Cd 120 Mg) 240 mg PO DAILY [facility] Stop: 10/12/19 09:59 Last Admin: 09/12/19 09:56 Dose: 240 mg Sodium Chloride (Sodium Chloride 0.9% 1000 Ml) 1,000 mls @ 50 mls/hr IV .Q20H [facility] Stop: 10/11/19 17:59 Last Admin: 09/11/19 18:11 Dose: 50 mls/hr Ceftriaxone Sodium/Dextrose (Rocephin 1 Gm-D5w 50 Ml Bag) 1 g in 50 mls @ 100 mls/hr IV Q24H10 [facility] Stop: 10/11/19 17:59 Last Admin: 09/12/19 09:55 Dose: 100 mls/hr Azithromycin (Zithromax 500 Mg/ 250 Ml Nacl Premix) 500 mg in 250 mls @ 250 mls /hr IV Q24H22 [facility] Stop: 10/12/19 21:59 Meclizine HCl (Antivert 25 Mg) 25 mg PO BID [facility] Stop: 10/11/19 16:29 Last Admin: 09/12/19 09:57 Dose: 25 mg Methylprednisolone Sodium Succinate (Solu-Medrol 125 Mg) 80 mg IV Q8H [facility] Stop: 10/11/19 17:59 Last Admin: 09/12/19 09:59 Dose: 80 mg Pantoprazole Sodium (Protonix 40 Mg Iv) 40 mg IV BID [facility] Stop: 10/12/19 09:59 Last Admin: 09/12/19 10:17 Dose: Not Given Polyethylene Glycol/Electrolytes (Golytely Solution 4000 Ml) 4,000 ml PO ONCE@1400 ONE Stop: 09/12/19 15:01 Fluticasone/Salmeterol (Advair Hfa 115/21 Common Canister*) 2 puff IH BIDRT [facility] Stop: 10/11/19 18:59 Last Admin: 09/12/19 07:11 Dose: 2 puff Valsartan (Diovan 80 Mg) 80 mg PO DAILY [facility] Stop: 10/12/19 09:59 Last Admin: 09/12/19 09:55 Dose: 80 mg Intake & Output 09/12/19 09/13/19 11:59 11:59 Intake Total 1555 Output Total 300 Balance 1255 Weight 85.1 kg Orders 09/11/19 14:08 Place in Observation ROUTINE Telemetry q6h 09/11/19 16:30 Meclizine HCl 25 mg [Antivert 25 mg] 25 mg PO BID 09/11/19 17:48 Oxygen NASAL CANNULA 3 lpm 09/11/19 18:00 Methylprednis Sod Succ 125 mg* [solu-MEDROL 125 MG] 80 mg IV Q8H NaCl 0.9% 1000 ml [Sodium Chloride 0.9% 1000 ML] 1,000 ml IV 50 mls/hr 09/11/19 18:03 Ceftriaxone 1 GM/50 ML PREMIX* [ROCEPHIN 1 Gm-D5w 50 ml Bag] 1 g in 50 ml IV Q24H10 09/11/19 19:00 Fluticasone/Salmeterol 115/21 [Advair Hfa 115/21 Common canister*] 2 puff IH BIDRT Pulse Oximetry ROUTINE 09/11/19 21:20 Respiratory Therapy Assessment DAILY 09/12/19 BLOOD COMPONENT REQUEST Urgent Occult Blood - Cancer Screen Routine 09/12/19 07:51 Consult Surgery ROUTINE 09/12/19 09:00 Admission Status Change [Change to Full Admit] ROUTINE 09/12/19 09:37 Consult Surgery ROUTINE ABDOMEN AND PELVIS W&WO CONTRA [CT] Urgent 09/12/19 09:53 Consent,Obtain ROUTINE H&H 1 Hr Post Transfusion 1 HR POST TRANSFUS 09/12/19 10:00 Diltiazem HCl 120 mg [Cardizem CD 120 MG] 240 mg PO DAILY Valsartan 80 mg [Diovan 80 mg] 80 mg PO DAILY 09/12/19 22:00 Azithromycin 500 mg/250 ml [Zithromax 500 MG/ 250 ML NaCl Premix] 500 mg in 250 ml IV Q24H22 Lab Tests 09/11/19 09/11/19 09/11/19 17:06 17:50 17:50 WBC 11.5 H RBC 3.50 L Hgb 7.4 L Hct 27.0 L MCV 77.1 L MCH 21.1 L MCHC 27.4 L RDW 18.0 H Plt Count 302 MPV 9.3 Sodium 140 Potassium 3.6 Chloride 100 Carbon Dioxide 36 H Anion Gap 7.5 BUN 23 H Creatinine 0.78 Estimated GFR > 60.0 Glucose 111 H Calcium 8.9 Total Bilirubin 0.30 AST 15 ALT 7 Alkaline Phosphatase 111 Troponin I NT-Pro-B Natriuret Pep 333 Serum Total Protein 7.3 Albumin 3.9 Slides for Path Review YES 09/11/19 09/12/19 09/12/19 17:50 04:31 04:31 WBC 10.4 RBC 3.34 L Hgb 7.0 L Hct 25.9 L MCV 77.5 L MCH 21.0 L MCHC 27.0 L RDW 17.8 H Plt Count 290 MPV 9.8 Sodium 140 Potassium 4.4 D Chloride 101 Carbon Dioxide 36 H Anion Gap 6.8 BUN 24 H Creatinine 0.79 Estimated GFR > 60.0 Glucose 162 H Calcium 8.7 Total Bilirubin 0.20 AST 14 ALT 6 Alkaline Phosphatase 97 Troponin I < 0.012 NT-Pro-B Natriuret Pep Serum Total Protein 6.7 Albumin 3.6 Slides for Path Review Code(s): J44.1 - CHRONIC OBSTRUCTIVE PULMONARY DISEASE W (ACUTE) EXACERBATION (2) Acute blood loss anemia Current Visit: No Status: Acute Code(s): D62 - ACUTE POSTHEMORRHAGIC ANEMIA (3) Aortic stenosis, severe Current Visit: No Status: Acute Code(s): I35.0 - NONRHEUMATIC AORTIC (VALVE ) STENOSIS (4) Aortic valve stenosis with insufficiency Current Visit: No Status: Acute Qualifiers: Code(s): I35.2 - NONRHEUMATIC AORTIC (VALVE) STENOSIS WITH INSUFFICIENCY (5) HTN (hypertension) Current Visit: No Status: Acute Qualifiers: Code(s): I10 - ESSENTIAL (PRIMARY) HYPERTENSION
--- NOTE | 2019-09-12 13:26 | XRAY ---
Indication: Abdomen pain. Anemia, COPD, short of breath, and dizziness. Multiple contiguous axial images obtained through the abdomen and pelvis prior to and following 80 cc Isovue 370 contrast as ordered. Comparison: April 04, 2019. Lung bases demonstrates minimal fibrosis/scarring without focal infiltrate or effusion. Stable medial left lower lobe calcified granuloma. Heart is borderline enlarged. Noncontrasted images demonstrates stable calcified hepatic/splenic granulomas and nonobstructing right renal micro-calculi. Uterus demonstrates new 1.7 cm fundal calcified fibroid. No other pathologic visceral calcification/calculi. Stomach is distended with food/fluid. Noncontrasted stomach and bowel loops appear nonobstructed again with scattered descending and sigmoid diverticulosis. No free fluid/air. Postcontrast images demonstrates normal visceral enhancement and renal excretion. Stable left mid renal cortical cysts and left adrenal adenoma. Remaining liver, gallbladder, pancreas, spleen, right adrenal gland, kidneys, ureters, bladder, and uterus appear unremarkable. There remains moderate scattered arteriosclerotic disease including fusiform AAA today measuring 6.2 x 6.4 cm in maximum diameter, previously 5.8 x 6.3 cm. No pathologic retroperitoneal lymphadenopathy. Osseous structures again demonstrates mild degenerative changes throughout the thoracolumbar spine. Impression: 1. Again diffuse scattered arteriosclerotic disease with minimally enlarging distal AAA as detailed. 2. New uterine calcified fibroid. 3. Stable nonobstructing right renal micro-calculi, left renal cysts, left adrenal adenoma, colonic diverticulosis, and evidence for old granulomatous disease. 4. Remaining CT abdomen/pelvis with and without contrast exam is negative.
[2019-09-12] MEDS ORDERED: Golytely Solution 4000 ML PO ONE (15:00)
[2019-09-12] MEDS: Sodium Chloride 0.9% 1000 ML 1,000 ML IV SCH (15:16)
[2019-09-12 19:20] LABS: Appearance CLEAR (CLEAR); Bilirubin NEGATIVE (NEGATIVE); Blood NEGATIVE Ery/ul (0-5); Glucose NEGATIVE (NEGATIVE); Ketones NEGATIVE (NEGATIVE); Leukocyte Esterase NEGATIVE (NEGATIVE); Mucus SLIGHT /HPF (NEGATIVE); Nitrite NEGATIVE (NEGATIVE); Protein,Urine Dip NEGATIVE (Negative); Specific Gravity 1.059 (1.005-1.025); Urobilinogen NEGATIVE mg/dL (0-1)
[2019-09-12] MEDS ORDERED: Zithromax 500 MG/ 250 ML NaCl Premix 500 MG/250 ML IVPB IV SCH (22:00)
[2019-09-12] MEDS ORDERED: TYLENOL 325 MG PO PRN (22:31)
[2019-09-12 22:59] LABS: ABO TYPING O; CROSS MATCH (PRBC) COMPATIBLE (COMPATIBLE)
[2019-09-12 23:00] LABS: Antibody Screen NEGATIVE (NEGATIVE); RH TYPING POSITIVE
[2019-09-13] MEDS ORDERED: Sodium Chloride 0.9% 500 ML 500 ML IV SCH (00:15)
[2019-09-13] MEDS: solu-MEDROL 125 MG IV SCH ×2 (02:00→09:05)
[2019-09-13] MEDS ORDERED: Lactated Ringers 1,000 ML IV ONE (05:19)
[2019-09-13] MEDS ORDERED: Lactated Ringers 1,000 ML IV SCH (05:30)
[2019-09-13 06:34] LABS: Hematocrit 30.3 % (35-47)
[2019-09-13] MEDS: Advair Hfa 115/21 Common canister IH SCH (06:55)
[2019-09-13] MEDS ORDERED: DIPRIVAN 200 MG/20 ML IV ONE ×3 (07:19→07:58)
[2019-09-13] MEDS ORDERED: Ketamine HCl 50 MG/ML ONE (07:19)
--- NOTE | 2019-09-13 08:58 | OP ---
CONSULT DATE: 09/13/2019 REASON FOR CONSULT: Dizziness, weakness. HISTORY: The patient is a 79 year-old female who states she has been dizzy and weak for a couple of weeks. She has been unstable walking. She is on home O2, continues on that oxygen. She was sent to the hospital when she was seeing outpatient physician. The initial studies showed initial hemoglobin of 7. She has been admitted to the hospital. She received 2 units of blood and had appropriate response to transfusion. The patient is not sure if she has had any bloody stools, dark tarry stools. She has about five loose bowel movements a day. PAST MEDICAL HISTORY: She had extensive past medical history of chronic obstructive pulmonary disease, aortic stenosis status post TAVR (transcatheter aortic valve replacement) in 2019. Peptic ulcer disease with a scope in the fall of 2019, supposed to be on pantoprazole but sporadically takes that. Iron deficiency anemia. 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 Chronic kidney disease, heart failure, hypertension. PAST SURGICAL HISTORY: Tonsillectomy. TAVR 2019. EGD sometime in 2019 but I do not have the record. Unsure of her last colonoscopy. FAMILY HISTORY: No colon cancer. SOCIAL HISTORY: Prior smoker, not actively smoking. No alcohol. MEDICATIONS: List reviewed. Does take aspirin, is supposed to be taking Protonix daily but not really compliant. REVIEW OF SYSTEMS: No fevers or chills. No loss of appetite. No weight change. HEENT: No sore throat. No congestion. RESPIRATORY: Dyspnea on exertion. Does have some shortness of breath while lying flat. No cough. CARDIOLOGY: No chest pain. No palpitations. GI: See history of present illness. MUSCULOSKELETAL: No joint pain. NEUROLOGIC: No weakness. No dizziness. : No urinary frequency. No dysuria. PHYSICAL EXAMINATION: Afebrile. Vital signs normal MCAP (mobile clinical access portal). NECK: Symmetric, no mass. CHEST: Nonlabored respirations on nasal cannula. HEART: Regular rate and rhythm. ABDOMEN: Obese, soft, nontender to palpation. No rebound or guarding. EXTREMITIES: Moving all extremities, motor sensory intact, palpable dorsalis pedis 2+ bilaterally, radial palpable bilaterally. LAB DATA AND TESTS: Imaging: CT abdomen and pelvis without contrast shows juxtarenal extensive abdominal aortic aneurysm approximately 6 cm with read that it is increased in size 0.4 mm compared to the fall of last year. CBC, BMP reviewed. Adequate response to transfusion 2 units. ASSESSMENT AND PLAN: A 79 year-old female anemic likely due to GI bleed, does have a history of peptic ulcer disease noncompliant with proton pump inhibitor therapy. She also has multiple medical comorbidities. She also has a juxtarenal abdominal aortic aneurysm which the patient alleges was irreparable when she talked to vascular surgery, this does not appear to be acutely symptomatic. Will perform EGD and colonoscopy. She will need to follow up her abdominal aortic aneurysm though it appears that she was evaluated and was not a surgical candidate but there is new imaging showing it has increased in size.
[2019-09-13] MEDS: DIOVAN 80 MG PO SCH (09:05)
[2019-09-13] MEDS: ROCEPHIN 1 Gm-D5w 50 ml Bag** 1 G/50 ML IVPB IV SCH (09:05)
[2019-09-13] MEDS: Cardizem CD 120 MG PO SCH (09:05)
[2019-09-13] MEDS: ANTIVERT 25 MG PO SCH (09:05)
[2019-09-13] MEDS: PROTONIX 40 MG IV IV SCH (09:05)
--- NOTE | 2019-09-13 09:33 | OP ---
SURGERY DATE/TIME: 09/13/2019 8591 PREOPERATIVE DIAGNOSES: 1) GI bleed with anemia. 2) Gastritis. No obvious ulcer. 3) Transverse colon 3 mm polyp. POSTOPERATIVE DIAGNOSES: 1) GI bleed with anemia. 2) Gastritis. No obvious ulcer. 3) Transverse colon 3 mm polyp. PROCEDURE: EGD with biopsies of the antrum. SURGEON: Adam Lopez M.D. ANESTHESIA: MAC. ESTIMATED BLOOD LOSS: 5 ml. CONDITION: Patient condition stable. COMPLICATIONS: None. SPECIMENS: 1) Antral biopsy for Helicobacter pylori. 2) Transverse colon polyp. HISTORY: The patient is a 79 year-old female admitted to the hospital with anemia, shortness of breath, weakness, dizziness. Hemoglobin was 7. She had a transfusion. She has a history of peptic ulcer disease noncompliant with proton pump inhibitor. Risks, benefits and alternatives were discussed with the patient including bleeding, perforation and cardiopulmonary complication. FINDINGS: 1) There was moderate gastritis. D2, D3 were normal. D1 was not able to completely evaluated. There was moderate gastritis in the antrum and body that were very friable and bled when the scope touched it, this was hemostatic at the conclusion. Antral biopsy was taken for Helicobacter pylori. 2) Colonoscopy fair prep on the right side. Small polyps could be missed. There was 3 mm sessile polyp in the transverse colon taken with cold forceps. DESCRIPTION OF PROCEDURE: The patient was brought to the endoscopy suite. She was placed left side down. Time out was performed. MAC anesthesia was induced. EGD scope was introduced to the mouth. Cords are normal. This was advanced to the stomach. There was moderate gastritis. There was some difficulty intubating the pylorus. However, duodenum was intubated. D2, D3 were normal. D1 was difficult to totally evaluate. The scope would rapidly slip back into the stomach. Antral biopsy was taken for Helicobacter pylori. The mucosa was friable and bled with scope manipulation, this was hemostatic. There is no hiatal hernia. Esophagus was normal. The patient was positioned for colonoscopy. Digital rectal exam showed small external hemorrhoid, internal hemorrhoid. The scope was advanced to the cecum. There were residual food particles in the cecum and the appendiceal orifice was not clearly identified, nor the ileocecal valve. The scope was able to be retroflexed. Prep was fair in the right colon. Small polyps could be missed but there were no gross large lesions. Transverse colon there is a 3 mm polyp that was removed with cold forceps. The rest of the colon just showed diverticulosis in the descending sigmoid colon otherwise was normal. The patient tolerated the procedure well. She was then taken to recovery in stable condition.
--- NOTE | 2019-09-13 11:58 | PCM.DS ---
Discharge Summary Date of Admission: 09/12/19 09:00 Admitting Physician: DB EUBANKS Consults: Consults on Case 09/12/19 07:51 Consult Surgery ROUTINE 09/12/19 09:37 Consult Surgery ROUTINE Primary Care Provider: DB EUBANKS Allergies Allergies No Known Drug Allergies Allergy (Verified 04/04/19 13:35) Hospital Summary - Hospital Course Hospital Course: Chief Complaint Diagnosis ANEMIA, EXAC COPD Allergies Allergy/AdvReac Type Severity Reaction Status Date / Time No Known Drug Allergies Allergy Verified 04/04/19 13:35 Vital Signs (Last 24 hours) Temp Pulse Resp BP Pulse Ox 09/13/19 08:00 98.7 F 100 H 18 143/84 97 09/13/19 06:57 97 H 18 94 L 09/13/19 04:00 98.0 F 88 18 143/87 97 09/13/19 01:47 98.0 F 96 H 20 136/82 94 L 09/13/19 00:00 98.1 F 98 H 20 145/81 94 L 09/12/19 20:00 98.2 F 91 H 21 139/83 95 09/12/19 17:41 85 20 98 09/12/19 16:00 97.3 F 93 H 19 132/75 97 09/12/19 12:00 97.5 F 95 H 22 133/74 97 Home Medications Medication Instructions Recorded Confirmed Last Taken Type Fluticasone/Umeclidin/Vilanter 1 puff IH DAILY 09/11/19 09/11/19 09/11/19 History [Trelezeb Ellipta 100-62.5-25] Pantoprazole Sodium 40 mg PO BID 09/11/19 09/11/19 09/11/19 History Current Medications Generic Name Dose Route Start Last Admin Trade Name Freq PRN Reason Stop Dose Admin Acetaminophen 650 mg 09/12/19 22:31 09/12/19 22:37 Tylenol 325 Mg PO 10/12/19 22:30 650 mg Q6H PRN PRN Administration PAIN AND/OR FEVER Diltiazem HCl 240 mg 09/12/19 10:00 09/13/19 09:05 Cardizem Cd 120 Mg PO 10/12/19 09:59 240 mg DAILY BRIDGETTE Administration Sodium Chloride 1,000 mls @ 50 mls/hr 09/11/19 18:00 09/12/19 15:16 Sodium Chloride 0.9% 1000 Ml IV 10/11/19 17:59 50 mls/hr .Q20H BRIDGETTE Administration Ceftriaxone Sodium/Dextrose 1 g in 50 mls @ 100 mls/hr 09/11/19 18:03 09:05 Rocephin 1 Gm-D5w 50 Ml Bag IV 10/11/19 17:59 100 mls/hr Q24H10 BRIDGETTE Administration Azithromycin 500 mg in 250 mls @ 250 mls/hr 09/12/19 22:00 09/12/19 22:50 Zithromax 500 Mg/ 250 Ml Nacl Premix IV 10/12/19 21:59 250 mls/hr Q24H22 BRIDGETTE Administration Sodium Chloride 500 mls @ 50 mls/hr 09/13/19 00:15 09/13/19 00:12 Sodium Chloride 0.9% 500 Ml IV 10/13/19 00:14 50 mls/hr .Q10H BRIDGETTE Administration Lactated Ringer's 1,000 mls @ 50 mls/hr 09/13/19 05:30 09/13/19 05:35 Lactated Ringers IV 10/13/19 05:29 50 mls/hr .Q20H BRIDGETTE Administration Meclizine HCl 25 mg 09/11/19 16:30 09/13/19 09:05 Antivert 25 Mg PO 10/11/19 16:29 25 mg BID BRIDGETTE Administration Methylprednisolone Sodium Succinate 80 mg 09/11/19 18:00 09/13/19 09:05 Solu-Medrol 125 Mg IV 10/11/19 17:59 80 mg Q8H BRIDGETTE Administration Pantoprazole Sodium 40 mg 09/12/19 10:00 09/13/19 09:05 Protonix 40 Mg Iv IV 10/12/19 09:59 40 mg BID BRIDGETTE Administration Fluticasone/Salmeterol 2 puff 09/11/19 19:00 09/13/19 06:55 Advair Hfa 115/21 Common Canister* IH 10/11/19 18:59 2 puff BIDRT BRIDGETTE Administration Valsartan 80 mg 09/12/19 10:00 09/13/19 09:05 Diovan 80 Mg PO 10/12/19 09:59 80 mg DAILY BRIDGETTE Administration Discontinued Medications Generic Name Dose Route Start Last Admin Trade Name Rooseveltq PRN Reason Stop Dose Admin Ceftriaxone Sodium/Dextrose 1 g in 50 mls @ 100 mls/hr 09/11/19 22:00 Rocephin 1 Gm-D5w 50 Ml Bag IV 10/11/19 21:59 Q24H10 BRIDGETTE Azithromycin 500 mg in 250 mls @ 250 mls/hr 09/11/19 22:00 09/11/19 21:10 Zithromax 500 Mg/ 250 Ml Nacl Premix IV 10/11/19 21:59 250 mls/hr Q24H10 BRIDGETTE Administration Lactated Ringer's Confirm 09/13/19 05:19 Lactated Ringers Administered 09/13/19 05:20 Dose 1,000 mls @ ud IV .STK-MED ONE Ketamine HCl Confirm 09/13/19 07:19 Ketamine Hcl 50 Mg/Ml Administered 09/13/19 07:20 Dose 10 mg .ROUTE .STK-MED ONE Pantoprazole Sodium 40 mg 09/11/19 22:00 09/12/19 09:57 Protonix 40mg Tablet PO 10/11/19 21:59 40 mg BID BRIDGETTE Administration Pantoprazole Sodium Confirm 09/11/19 19:45 Protonix 40mg Tablet Administered 09/11/19 19:46 Dose 40 mg .ROUTE .STK-MED ONE Polyethylene Glycol/Electrolytes 4,000 ml 09/12/19 15:00 09/12/19 15:16 Golytely Solution 4000 Ml PO 09/12/19 15:01 4,000 ml ONCE@1400 ONE Administration Propofol Confirm 09/13/19 07:19 Diprivan 200 Mg/20 Ml Administered 09/13/19 07:20 Dose 200 mg IV .STK-MED ONE Propofol Confirm 09/13/19 07:38 Diprivan 200 Mg/20 Ml Administered 09/13/19 07:39 Dose 200 mg IV .STK-MED ONE Propofol Confirm 09/13/19 07:58 Diprivan 200 Mg/20 Ml Administered 09/13/19 07:59 Dose 200 mg IV .STK-MED ONE Intake & Output (Last 24 hours) 09/10/19 09/11/19 09/12/19 09/13/19 11:59 11:59 11:59 11:59 Intake Total 1555 5440 Output Total 300 Balance 1255 5440 Weight 85.1 kg 85.1 kg Laboratory Results (Last 24 hours) 09/13/19 09/12/19 09/12/19 06:13 18:53 10:05 Hgb 9.0 L D Hct 30.3 L Urine Color YELLOW Urine Appearance CLEAR Urine pH 6.0 Ur Specific Hiram 1.059 Urine Protein NEGATIVE Urine Ketones NEGATIVE Urine Blood NEGATIVE Urine Nitrite NEGATIVE Urine Bilirubin NEGATIVE Urine Urobilinogen NEGATIVE Ur Leukocyte Esterase NEGATIVE Urine WBC (Auto) NONE Urine RBC (Auto) NONE U Epithel Cells (Auto) NONE Urine Bacteria (Auto) NONE Urine Mucus (Auto) SLIGHT Urine Culture Reflexed NO Urine Glucose NEGATIVE ABO Group Rh Factor Antibody Screen Crossmatch COMPATIBLE 09/12/19 09/12/19 10:05 10:05 Hgb Hct Urine Color Urine Appearance Urine pH Ur Specific Hiram Urine Protein Urine Ketones Urine Blood Urine Nitrite Urine Bilirubin Urine Urobilinogen Ur Leukocyte Esterase Urine WBC (Auto) Urine RBC (Auto) U Epithel Cells (Auto) Urine Bacteria (Auto) Urine Mucus (Auto) Urine Culture Reflexed Urine Glucose ABO Group O Rh Factor POSITIVE Antibody Screen NEGATIVE Crossmatch COMPATIBLE Orders (Last 24 hours) Category Date Time Status Miscellaneous Nursing Order ROUTINE Care 09/13/19 05:00 Completed Clear Liquid Diet 09/12/19 Dinner Completed NPO Diet 09/13/19 00:01 Completed Regular Diet Diet 09/13/19 Breakfast Active HEMOGLOBIN AND HEMATOCRIT Urgent Lab 09/13/19 06:13 Completed UA W/RFX UR CULTURE Routine Lab 09/12/19 18:53 Completed Acetaminophen 325 mg [Tylenol 325 mg] Med 09/12/19 22:31 Active 650 mg PO Q6H PRN PRN Azithromycin 500 mg/250 ml [Zithromax 500 MG/ 250 ML Med 09/12/19 22:00 Active NaCl Premix] 500 mg in 250 ml IV Q24H22 Ketamine HCl 50 mg/ml [Ketamine HCl 50 MG/ML] Med 09/13/19 07:19 Discontinued 10 mg .ROUTE .STK-MED ONE NaCl 0.9% 500 ml [Sodium Chloride 0.9% 500 ML] 500 ml Med 09/13/19 00:15 Active IV 50 mls/hr Propofol 200 mg/20 ml [Diprivan 200 mg/20 ml] Med 09/13/19 07:19 Discontinued 200 mg IV .STK-MED ONE Propofol 200 mg/20 ml [Diprivan 200 mg/20 ml] Med 09/13/19 07:38 Discontinued 200 mg IV .STK-MED ONE Propofol 200 mg/20 ml [Diprivan 200 mg/20 ml] Med 09/13/19 07:58 Discontinued 200 mg IV .STK-MED ONE Ringers Solution,Lactated [Lactated Ringers] 1,000 ml Med 09/13/19 05:30 Active IV 50 mls/hr Ringers Solution,Lactated [Lactated Ringers] 1,000 ml Med 09/13/19 05:19 Discontinued IV UD Sod Sulf/Sod/Nahco3/KCl/Peg's* [Golytely Solution 4000 Med 09/12/19 15:00 Discontinued ML] 4,000 ml PO ONCE@1400 ONE Patient Care Notes (Last 24 hours) 09/13/19 08:30 (created 09/13/19 08:43) Nursing Note by Komal Ponce Patient is back from [facility] Initialized on 09/13/19 08:43 - END OF NOTE 09/13/19 07:15 (created 09/13/19 08:10) Nursing Note by Komal Ponce Patient headed to [facility] Initialized on 09/13/19 08:10 - END OF NOTE 09/13/19 07:00 (created 09/13/19 07:35) Nursing Note by Komal Ponce came to see patient today before her EGD and COLONOSCOPY. Initialized on 09/13/19 07:35 - END OF NOTE - Vitals & Intake/Output Vital Signs: Vital Signs Temperature 98.7 F 09/13/19 08:00 Pulse Rate 100 H 09/13/19 08:00 Respiratory Rate 18 09/13/19 08:00 Blood Pressure 143/84 09/13/19 08:00 O2 Sat by Pulse Oximetry 97 09/13/19 08:00 Intake & Output: Intake & Output 09/10/19 09/11/19 09/12/19 09/13/19 11:59 11:59 11:59 11:59 Intake Total 1555 5440 Output Total 300 Balance 6187 5440 Weight 85.1 kg 85.1 kg - Lab Result Diagrams: 09/13/19 06:13 09/12/19 04:31 Lab Results-Last 24 Hrs: Lab Results-Last 24 Hours 09/12/19 09/12/19 09/12/19 Range/Units 10:05 10:05 10:05 Hgb (12.0-16.0) gm/dl Hct (35-47) % Urine Color (YELLOW) Urine Appearance (CLEAR) Urine pH (5-6) Ur Specific Hiram (1.005-1.025) Urine Protein (Negative) Urine Ketones (NEGATIVE) Urine Blood (0-5) Amarjit/ul Urine Nitrite (NEGATIVE) Urine Bilirubin (NEGATIVE) Urine Urobilinogen (0-1) mg/dL Ur Leukocyte Esterase (NEGATIVE) Urine WBC (Auto) (0-5) /HPF Urine RBC (Auto) (0-2) /HPF U Epithel Cells (Auto) (FEW) /HPF Urine Bacteria (Auto) (NEGATIVE) /HPF Urine Mucus (Auto) (NEGATIVE) /HPF Urine Culture Reflexed (NO) Urine Glucose (NEGATIVE) mg/dL ABO Group O Rh Factor POSITIVE Antibody Screen NEGATIVE (NEGATIVE) Crossmatch COMPATIBLE COMPATIBLE (COMPATIBLE) 09/12/19 09/13/19 Range/Units 18:53 06:13 Hgb 9.0 L D (12.0-16.0) gm/dl Hct 30.3 L (35-47) % Urine Color YELLOW (YELLOW) Urine Appearance CLEAR (CLEAR) Urine pH 6.0 (5-6) Ur Specific Hiram 1.059 (1.005-1.025) Urine Protein NEGATIVE (Negative) Urine Ketones NEGATIVE (NEGATIVE) Urine Blood NEGATIVE (0-5) Amarjit/ul Urine Nitrite NEGATIVE (NEGATIVE) Urine Bilirubin NEGATIVE (NEGATIVE) Urine Urobilinogen NEGATIVE (0-1) mg/dL Ur Leukocyte Esterase NEGATIVE (NEGATIVE) Urine WBC (Auto) NONE (0-5) /HPF Urine RBC (Auto) NONE (0-2) /HPF U Epithel Cells (Auto) NONE (FEW) /HPF Urine Bacteria (Auto) NONE (NEGATIVE) /HPF Urine Mucus (Auto) SLIGHT (NEGATIVE) /HPF Urine Culture Reflexed NO (NO) Urine Glucose NEGATIVE (NEGATIVE) mg/dL ABO Group Rh Factor Antibody Screen (NEGATIVE) Crossmatch (COMPATIBLE) - Radiology Exams Ordered Rad Exams-Entire Visit: Radiology Procedures Category Date Time Status ABDOMEN AND PELVIS W&WO CONTRA [CT] Urgent Exams 09/12/19 09:37 Completed CHEST 2 VIEWS (PA AND LAT) Routine Exams 09/11/19 19:10 Completed - Procedures and Test Procedures and Tests throughout Hospitalization: Therapy Orders & Screens 09/11/19 17:07 Respiratory Therapy Consult ROUTINE Comment: Reason For Exam: Diagnosis: copd 09/11/19 17:48 Oxygen NASAL CANNULA 3 lpm Comment: Diagnosis: copd 09/11/19 21:20 Respiratory Therapy Assessment DAILY Comment: Diagnosis: copd Discharge Exam General Appearance: no apparent distress, alert Neurologic Exam: alert, oriented x 3, cooperative, normal mood/affect, nml cerebellar function, sensation nml, No motor deficits Eye Exam: PERRL, EOMI, eyes nml inspection Ears, Nose, Throat Exam: normal ENT inspection, pharynx normal, moist mucous membranes Neck Exam: normal inspection, non-tender, supple, full range of motion Respiratory Exam: normal breath sounds, lungs clear, No respiratory distress Cardiovascular Exam: regular rate/rhythm, normal heart sounds Gastrointestinal/Abdomen Exam: soft, No tenderness, No mass Pelvic Exam: deferred Rectal Exam: deferred Back Exam: normal inspection, normal range of motion, No CVA tenderness, No vertebral tenderness Extremity Exam: normal inspection, normal range of motion Skin Exam: normal color, warm, dry Final Diagnosis/Problem List - Final Discharge Diagnosis/Problem (1) COPD exacerbation Current Visit: Yes Status: Acute Assessment & Plan: resolved Patient required oxygen 3L/24 hrs Code(s): J44.1 - CHRONIC OBSTRUCTIVE PULMONARY DISEASE W (ACUTE) EXACERBATION (2) Acute blood loss anemia Current Visit: Yes Status: Acute Assessment & Plan: EGD and Colonoscopy reviewed. Code(s): D62 - ACUTE POSTHEMORRHAGIC ANEMIA (3) Aortic stenosis, severe Current Visit: No Status: Acute Code(s): I35.0 - NONRHEUMATIC AORTIC (VALVE ) STENOSIS (4) Aortic valve stenosis with insufficiency Current Visit: No Status: Acute Priority: High Code(s): I35.2 - NONRHEUMATIC AORTIC (VALVE) STENOSIS WITH INSUFFICIENCY (5) HTN (hypertension) Current Visit: No Status: Acute Code(s): I10 - ESSENTIAL (PRIMARY) HYPERTENSION - Discharge Discharge Date: 09/13/19 Disposition: Home, Self-Care Condition: Stable Prescriptions: New Ferrous Fum/Folic Acid/Bcomp,C [Dialyvite 800 with Iron Tab] 1 each PO BID # 60 tablet Continue Diltiazem HCl [Dilt-Xr] 240 mg PO DAILY Meclizine HCl 25 mg [Antivert 25 mg] 25 mg PO BID Valsartan 80 mg PO DAILY Pantoprazole Sodium 40 mg PO BID Fluticasone/Umeclidin/Vilanter [Trelegy Ellipta 100-62.5-25] 1 puff IH DAILY Instructions: Anemia of Chronic Disease (DC), Exacerbation of COPD (DC) Follow up with: ARMANI ZALDIVAR MD [ASSOCIATE STAFF] - 09/27/19 2:30 pm DB EUBANKS MD [Primary Care Provider] - 09/21/19 1:45 pm Forms: Discharge Instructions
[2019-09-13 12:22] VITALS: BP 162/90; PULSE 104; O2SAT 98
== END 2019-09-13 12:18 | disposition home or self-care (01) | DRG 190 ==
LOC: MED SURG 09:00 → OBSVTOIN 09-12 09:00
PROVIDERS: ADMIT General Practice; ATTEND General Practice
PROC: 0DD68ZX Extraction of Stomach, Via Natural or Artificial Opening Endoscopic, Diagnostic (ICD-10-PCS; principal; 2019-09-13)
PROC: 0DBL8ZX Excision of Transverse Colon, Via Natural or Artificial Opening Endoscopic, Diagnostic (ICD-10-PCS; 2019-09-13)
DX: J44.1 Chronic obstructive pulmonary disease with (acute) exacerbation (principal); I50.41 Acute combined systolic (congestive) and diastolic (congestive) heart failure; D62 Acute posthemorrhagic anemia; I35.2 Nonrheumatic aortic (valve) stenosis with insufficiency; R42 Dizziness and giddiness; Z99.81 Dependence on supplemental oxygen; I12.9 Hypertensive chronic kidney disease with stage 1 through stage 4 chronic kidney disease, or unspecified chronic kidney disease; N18.9 Chronic kidney disease, unspecified; I71.4 Abdominal aortic aneurysm, without rupture; K29.70 Gastritis, unspecified, without bleeding; K63.5 Polyp of colon; Z79.899 Other long term (current) drug therapy; K64.4 Residual hemorrhoidal skin tags; K64.8 Other hemorrhoids; K57.30 Diverticulosis of large intestine without perforation or abscess without bleeding
CPT/HCPCS: 36415; 36430; 43239; 45380; 71046; 74178; 80053; 81001; 83880; 84484; 85014; 85018; 85027; 86850; 86870; 86900; 86901; 86922; 93268; 94640; 94762; G0378; P9016; 88305; 88312; 99100; J0456; J0696; J2704; J2930; A9270-GY

== ENCOUNTER 2021-01-28 13:37 | Observation (INO) | payer MEDICARE, OTHER ==
--- NOTE | 2021-01-28 14:06 | ERPHSYRPT ---
- History of Present Illness Historian: patient, EMS Exam Limitations: no limitations Patient Subjective Stated Complaint: Patient states she has had chest pain starting last night in the center of chest. States it is not radiating anywhere. Rates pain 5/10, states it has been better since recieving medication on EMS. Describes pain as sharp constant pain. Triage Nursing Assessment: Patient presents to ED via EMS for chest pain. Skin color pink dry, EKG sinus tachycardia, aortic aneurysm pulsating. Patient short of breath, V/S, O2 3L satuation 84%. BP 124/93, pulse 123 at this time. Physician History: 80 yo wf w inferior, mid-sternal chest pain >12 hours. Pain rated 5/10 after 1SL NTG-4mg IV MSO4 in route but has been up to a 10. It is described as a dull ache wo radiation, and nothing makes better or worse. She has had N/V and some d iarrhea wo dyspnea/diaphoresis. Pt has a h/o HTN/smoked 1-2 ppd until AVR 3-4 years ago. She denies CAD/MA/Hyperlipidemia. Pt is not anticoagulated. 3L O2 dep at home. She has a h/o AAA wo repair. Timing/Duration: yesterday Activities at Onset: rest Quality: aching, dullness Location: substernal Chest Pain Radiation: no radiation Severity of Pain-Max: severe Severity of Pain-Current: moderate Modifying Factors: Improves With: nitroglycerin, other (MSO4) Associated Symptoms: nausea, vomiting, No palpitations, No heartburn, No abdominal pain, No shortness of breath, No cough, No hurts to breathe, No diaphoresis, No chills, No fever, No fatigue, No weakness, No swelling/lump in chest, No syncope, No rash, No headache, No dizziness, No edema, No back pain Prior Chest Pain/Cardiac Workup: no prior chest pain Nitro Today/Relief: 0.4 mg x 1, provided by EMS Aspirin Treatment Today: no aspirin today Allergies/Adverse Reactions: No Known Drug Allergies Allergy (Verified 04/04/19 13:35) Home Medications: Diltiazem HCl [Dilt-Xr] 240 mg PO DAILY 04/04/19 [History] Meclizine HCl 25 mg [Antivert 25 mg] 25 mg PO BID 04/04/19 [History] Valsartan 80 mg PO DAILY 04/04/19 [History] Fluticasone/Umeclidin/Vilanter [Trelegy Ellipta 100-62.5-25] 1 puff IH DAILY 09/11/19 [History] Pantoprazole Sodium 40 mg PO BID 09/11/19 [History] Folic Acid/Vit B Complex and C [Folbee Plus Tablet] 5 mg PO DAILY 01/28/21 [History] Valsartan 80 mg PO DAILY 01/28/21 [History] Hx Tetanus, Diphtheria Vaccination/Date Given: No Hx Influenza Vaccination/Date Given: No Hx Pneumococcal Vaccination/Date Given: No Travel Risk - International Travel Have you traveled outside of the country in past 3 weeks: No - Coronavirus Screening Are you exhibiting any of the following symptoms?: No - Vaccine Status Have you recieved a Covid-19 vaccination: Yes Nutrition Manager: [employer] - Review of Systems Constitutional: No Symptoms Eyes: No Symptoms Ears, Nose, & Throat: No Symptoms Respiratory: No Symptoms Cardiac: No Symptoms, Chest Pain Abdominal/Gastrointestinal: No Symptoms, Nausea, Vomiting, Diarrhea Genitourinary Symptoms: No Symptoms Musculoskeletal: No Symptoms Skin: No Symptoms Neurological: No Symptoms Psychological: No Symptoms Endocrine: No Symptoms Hematologic/Lymphatic: No Symptoms Immunological/Allergic: No Symptoms - Past Medical History Pertinent Past Medical History: Yes Neurological History: No Pertinent History ENT History: Cataracts Cardiac History: No Pertinent History, Hypertension Respiratory History: COPD Endocrine Medical History: No Pertinent History Musculoskeletal History: No Pertinent History GI Medical History: Ulcer History: No Pertinent History Psycho-Social History: No Pertinent History Female Reproductive Disorders: No Pertinent History - Past Surgical History Past Surgical History: Yes Neuro Surgical History: No Pertinent History Cardiac: No Pertinent History, Valve Replacement Gastrointestinal: No Pertinent History Genitourinary: No Pertinent History Musculoskeletal: No Pertinent History Female Surgical History: No Pertinent History Other Surgical History: Tavrs procedure sees Dr calhoun in [place] - Social History Smoking Status: Former smoker How long have you smoked: 40 Exposure to second hand smoke: No Drug Use: none Patient Lives Alone: No Significant Family History: no pertinent family hx - Nursing Vital Signs Nursing Vital Signs: Initial Vital Signs Temperature 97.9 F 01/28/21 13:38 Pulse Rate 120 H 01/28/21 13:38 Respiratory Rate 21 01/28/21 13:38 Blood Pressure 122/84 01/28/21 13:38 O2 Sat by Pulse Oximetry 97 01/28/21 13:38 Pain Scale Pain Intensity 4 Tachy - Physical Exam General Appearance: mild distress Eye Exam: PERRL/EOMI, eyes nml inspection Ears, Nose, Throat Exam: normal ENT inspection, TMs normal, pharynx normal, moist mucous membranes Neck Exam: normal inspection, non-tender, supple, full range of motion, No meningismus, No mass, No Brudzinski, No Kernig's, No carotid bruit Respiratory Exam: normal breath sounds (Dry rales L medial-inferior lung field), airway intact, No respiratory distress Cardiovascular Exam: murmur (2/6), tachycardia Gastrointestinal/Abdomen Exam: soft, normal bowel sounds, tenderness (Mild- diffuse) Back Exam: normal inspection, normal range of motion, No CVA tenderness, No vertebral tenderness Extremity Exam: normal inspection, normal range of motion, pelvis stable Neurologic Exam: alert, oriented x 3, cooperative, 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, normal mood/affect, sensation nml, No motor deficits, No sensory deficit Skin Exam: normal color, warm, dry, No rash Lymphatic Exam: No adenopathy SpO2 Interpretation: normal SpO2: 97 O2 Delivery: Nasal Cannula (3L O2) - Course Nursing assessment & vital signs reviewed: Yes EKG Interpreted by Me: RATE (ST/R121/Normal QT-QTc/Inferior Q waves/Non-specific ST-Twave changes) - CT Exams Chest CT Interpretation: Discussed w/radiologist (MISHA nodule/COPD) Abdomen/Pelvis CT Interpretation: Discussed w/radiologist (AAA unchanged/Punctate gallstone) Ordered Tests: Active Orders 24 hr Category Date Time Status Rubber Down STAT Care 01/28/21 13:46 Completed EKG-ER Only STAT Care 01/28/21 13:45 Completed IV Insertion STAT Care 01/28/21 13:45 Completed Oxygen-ED Only Nasal Cannula 3 lpm Care 01/28/21 13:51 Completed Heart-Healthy Diet Diet 01/28/21 Dinner Active ABDOMEN AND PELVIS W CONTRAST [CT] Stat Exams 01/28/21 14:45 Completed CHEST 1 VIEW (PORTABLE) Stat Exams 01/28/21 13:46 Completed CHEST WITH CONTRAST [CT] Stat Exams 01/28/21 14:46 Completed ECHO W/2D AND DOPPLER [US] Routine Exams 01/29/21 Stop Req AMYLASE Stat Lab 01/28/21 13:56 Completed CBC W DIFF Stat Lab 01/28/21 13:59 Completed CMP Stat Lab 01/28/21 13:59 Completed LIPASE Stat Lab 01/28/21 13:56 Completed LIPID PROFILE AM.LAB Lab 01/29/21 04:00 Ordered PROTIME WITH INR Stat Lab 01/28/21 14:52 Completed PTT Stat Lab 01/28/21 14:52 Completed TROPONIN Q3H Lab 01/28/21 13:59 Completed TROPONIN Q3H Lab 01/28/21 16:44 Completed TROPONIN Q3H Lab 01/28/21 19:57 Completed TROPONIN Q3H Lab 01/28/21 23:00 Ordered TROPONIN Q3H Lab 01/29/21 02:00 Ordered UA W/RFX UR CULTURE Stat Lab 01/28/21 15:19 Completed Transfer Order Routine Transfer 01/28/21 Completed Medication Summary Generic Name Dose Route Start Last Admin Trade Name Freq PRN Reason Stop Dose Admin Acetaminophen 650 mg 01/28/21 18:12 Tylenol 325 Mg PO 02/27/21 18:11 Q4H PRN PRN PAIN AND/OR FEVER Al Hydrox/Mg Hydrox/Simethicone 30 ml 01/28/21 18:12 Maalox Es 30 Ml Unit Dose PO 02/27/21 18:11 Q4H PRN PRN INDIGESTION Aspirin 325 mg 01/29/21 10:00 Ecotrin 325 Mg PO 02/28/21 09:59 DAILY BRIDGETTE Enoxaparin Sodium 40 mg 01/29/21 10:00 Enoxaparin Sodium SQ 02/28/21 09:59 DAILY BRIDGETTE Magnesium Hydroxide 30 - 60 ml 01/28/21 18:12 Milk Of Magnesia 30 Ml PO 02/27/21 18:11 QDP PRN CONSTIPATION Ondansetron HCl 4 mg 01/28/21 18:12 Zofran 4 Mg/2 Ml Vial IV 02/27/21 18:11 Q4H PRN PRN NAUSEA/VOMITING Senna/Docusate Sodium 2 udtab 01/28/21 18:12 Senokot-S Tablet PO 02/27/21 18:11 BID PRN PRN CONSTIPATION Discontinued Medications Generic Name Dose Route Start Last Admin Trade Name Rooseveltq PRN Reason Stop Dose Admin Aspirin 324 mg 01/28/21 17:09 01/28/21 17:11 Baby Aspirin 81 Mg Chew PO 01/28/21 17:10 324 mg STAT ONE Administration Diphenhydramine HCl 12.5 mg 01/28/21 14:58 01/28/21 15:17 Benadryl 50 Mg/Ml IV 01/28/21 14:59 12.5 mg STAT ONE Administration Diphenhydramine HCl Confirm 01/28/21 14:58 Benadryl 50 Mg/Ml Administered 01/28/21 14:59 Dose 50 mg .ROUTE .STK-MED ONE Famotidine 40 mg 01/28/21 19:44 01/28/21 19:47 Pepcid 20 Mg Vial IV 01/28/21 19:45 40 mg 1XONLY STA Administration Famotidine Confirm 01/28/21 19:45 Pepcid 20 Mg Vial Administered 01/28/21 19:46 Dose 40 mg IV .STK-MED ONE Morphine Sulfate 4 mg 01/28/21 14:44 01/28/21 14:48 Morphine Sulfate 4 Mg Inj IV 01/28/21 14:45 4 mg STAT ONE Administration Morphine Sulfate Confirm 01/28/21 14:47 Morphine Sulfate 4 Mg Inj Administered 01/28/21 14:48 Dose 4 mg .ROUTE .STK-MED ONE Ondansetron HCl 4 mg 01/28/21 14:45 01/28/21 14:48 Zofran 4 Mg/2 Ml Vial IV 01/28/21 14:46 4 mg STAT ONE Administration Ondansetron HCl Confirm 01/28/21 14:46 Zofran 4 Mg/2 Ml Vial Administered 01/28/21 14:47 Dose 4 mg .ROUTE .STK-MED ONE Ondansetron HCl 4 mg 01/28/21 17:44 01/28/21 17:44 Zofran 4 Mg/2 Ml Vial IV 01/28/21 17:45 4 mg STAT ONE Administration Lab/Rad Data: Laboratory Result Diagrams 01/28/21 13:59 01/28/21 13:59 Laboratory Results 01/28/21 01/28/21 01/28/21 Range/Units 18:16 16:44 15:19 WBC (4.0-10.5) K/mm3 RBC (4.1-5.4) M/mm3 Hgb (12.0-16.0) gm/dl Hct (35-47) % MCV (78-100) fl MCH (26-32) pg MCHC (32-36) g/dl RDW (11.5-14.0) % Plt Count (150-450) K/mm3 MPV (7.5-11.0) fl Gran % (36.0-66.0) % Eos # (Auto) (0-0.5) Absolute Lymphs (auto) (1.0-4.6) Absolute Monos (auto) (0.0-1.3) Lymphocytes % (24.0-44.0) % Monocytes % (0.0-12.0) % Eosinophils % (0.00-5.0) % Basophils % (0.0-0.4) % Absolute Granulocytes (1.4-6.9) Basophils # (0-0.4) PT (9.4-12.5) SECONDS INR (0.8-3.0) APTT (25.1-36.5) SECONDS Sodium (137-145) mmol/L Potassium (3.5-5.1) mmol/L Chloride (98-107) mmol/L Carbon Dioxide (22-30) mmol/L Anion Gap (5-15) MEQ/L BUN (7-17) mg/dL Creatinine (0.52-1.04) mg/dL Estimated GFR ML/MIN Glucose (74-106) mg/dL Calcium (8.4-10.2) mg/dL Total Bilirubin (0.2-1.3) mg/dL AST (14-36) U/L ALT (0-35) U/L Alkaline Phosphatase (38-126) U/L Troponin I < 0.012 (0.000-0.034) ng/mL Serum Total Protein (6.3-8.2) g/dL Albumin (3.5-5.0) g/dL Amylase (30-110) U/L Lipase (23-300) U/L Urine Color YELLOW (YELLOW) Urine Appearance CLOUDY (CLEAR) Urine pH 7.0 (5-6) Ur Specific [place] 1.016 (1.005-1.025) Urine Protein NEGATIVE (Negative) Urine Ketones NEGATIVE (NEGATIVE) Urine Blood NEGATIVE (0-5) Amarjit/ul Urine Nitrite NEGATIVE (NEGATIVE) Urine Bilirubin NEGATIVE (NEGATIVE) Urine Urobilinogen NEGATIVE (0-1) mg/dL Ur Leukocyte Esterase NEGATIVE (NEGATIVE) Urine WBC (Auto) NONE (0-5) /HPF Urine RBC (Auto) NONE (0-2) /HPF U Epithel Cells (Auto) NONE (FEW) /HPF Urine Bacteria (Auto) NONE (NEGATIVE) /HPF Urine Mucus (Auto) SLIGHT (NEGATIVE) /HPF Urine Culture Reflexed NO (NO) Urine Glucose NEGATIVE (NEGATIVE) mg/dL SARS-CoV-2 (PCR) NEGATIVE (NEGATIVE) Slides for Path Review 01/28/21 01/28/21 01/28/21 Range/Units 14:52 13:59 13:59 WBC (4.0-10.5) K/mm3 RBC (4.1-5.4) M/mm3 Hgb (12.0-16.0) gm/dl Hct (35-47) % MCV (78-100) fl MCH (26-32) pg MCHC (32-36) g/dl RDW (11.5-14.0) % Plt Count (150-450) K/mm3 MPV (7.5-11.0) fl Gran % (36.0-66.0) % Eos # (Auto) (0-0.5) Absolute Lymphs (auto) (1.0-4.6) Absolute Monos (auto) (0.0-1.3) Lymphocytes % (24.0-44.0) % Monocytes % (0.0-12.0) % Eosinophils % (0.00-5.0) % Basophils % (0.0-0.4) % Absolute Granulocytes (1.4-6.9) Basophils # (0-0.4) PT 12.3 (9.4-12.5) SECONDS INR 1.04 (0.8-3.0) APTT 41.4 H (25.1-36.5) SECONDS Sodium 139 (137-145) mmol/L Potassium 4.1 (3.5-5.1) mmol/L Chloride 90 L (98-107) mmol/L Carbon Dioxide 40 H (22-30) mmol/L Anion Gap 13.1 (5-15) MEQ/L BUN 21 H (7-17) mg/dL Creatinine 1.14 H (0.52-1.04) mg/dL Estimated GFR 48.7 ML/MIN Glucose 130 H (74-106) mg/dL Calcium 11.8 H (8.4-10.2) mg/dL Total Bilirubin 0.20 (0.2-1.3) mg/dL AST 24 (14-36) U/L ALT 12 (0-35) U/L Alkaline Phosphatase 102 (38-126) U/L Troponin I < 0.012 (0.000-0.034) ng/mL Serum Total Protein 7.7 (6.3-8.2) g/dL Albumin 4.4 (3.5-5.0) g/dL Amylase (30-110) U/L Lipase (23-300) U/L Urine Color (YELLOW) Urine Appearance (CLEAR) Urine pH (5-6) Ur Specific [place] (1.005-1.025) Urine Protein (Negative) Urine Ketones (NEGATIVE) Urine Blood (0-5) Amarjit/ul Urine Nitrite (NEGATIVE) Urine Bilirubin (NEGATIVE) Urine Urobilinogen (0-1) mg/dL Ur Leukocyte Esterase (NEGATIVE) Urine WBC (Auto) (0-5) /HPF Urine RBC (Auto) (0-2) /HPF U Epithel Cells (Auto) (FEW) /HPF Urine Bacteria (Auto) (NEGATIVE) /HPF Urine Mucus (Auto) (NEGATIVE) /HPF Urine Culture Reflexed (NO) Urine Glucose (NEGATIVE) mg/dL SARS-CoV-2 (PCR) (NEGATIVE) Slides for Path Review 01/28/21 01/28/21 Range/Units 13:59 13:56 WBC 13.1 H (4.0-10.5) K/mm3 RBC 3.71 L (4.1-5.4) M/mm3 Hgb 9.0 L (12.0-16.0) gm/dl Hct 32.1 L (35-47) % MCV 86.5 (78-100) fl MCH 24.3 L (26-32) pg MCHC 28.0 L (32-36) g/dl RDW 16.1 H (11.5-14.0) % Plt Count 397 (150-450) K/mm3 MPV 9.8 (7.5-11.0) fl Gran % 85.8 H (36.0-66.0) % Eos # (Auto) 0.07 (0-0.5) Absolute Lymphs (auto) 0.92 L (1.0-4.6) Absolute Monos (auto) 0.84 (0.0-1.3) Lymphocytes % 7.0 L (24.0-44.0) % Monocytes % 6.4 (0.0-12.0) % Eosinophils % 0.5 (0.00-5.0) % Basophils % 0.3 (0.0-0.4) % Absolute Granulocytes 11.21 H (1.4-6.9) Basophils # 0.04 (0-0.4) PT (9.4-12.5) SECONDS INR (0.8-3.0) APTT (25.1-36.5) SECONDS Sodium (137-145) mmol/L Potassium (3.5-5.1) mmol/L Chloride (98-107) mmol/L Carbon Dioxide (22-30) mmol/L Anion Gap (5-15) MEQ/L BUN (7-17) mg/dL Creatinine (0.52-1.04) mg/dL Estimated GFR ML/MIN Glucose (74-106) mg/dL Calcium (8.4-10.2) mg/dL Total Bilirubin (0.2-1.3) mg/dL AST (14-36) U/L ALT (0-35) U/L Alkaline Phosphatase (38-126) U/L Troponin I (0.000-0.034) ng/mL Serum Total Protein (6.3-8.2) g/dL Albumin (3.5-5.0) g/dL Amylase 81 (30-110) U/L Lipase 83 (23-300) U/L Urine Color (YELLOW) Urine Appearance (CLEAR) Urine pH (5-6) Ur Specific [place] (1.005-1.025) Urine Protein (Negative) Urine Ketones (NEGATIVE) Urine Blood (0-5) Amarjit/ul Urine Nitrite (NEGATIVE) Urine Bilirubin (NEGATIVE) Urine Urobilinogen (0-1) mg/dL Ur Leukocyte Esterase (NEGATIVE) Urine WBC (Auto) (0-5) /HPF Urine RBC (Auto) (0-2) /HPF U Epithel Cells (Auto) (FEW) /HPF Urine Bacteria (Auto) (NEGATIVE) /HPF Urine Mucus (Auto) (NEGATIVE) /HPF Urine Culture Reflexed (NO) Urine Glucose (NEGATIVE) mg/dL SARS-CoV-2 (PCR) (NEGATIVE) Slides for Path Review YES - Progress Progress: improved Progress Note: 01/28/21 17:50 Pt refuses transfer to [place]. Admit per Dr. Keene. 01/28/21 21:33 Pt given 4mg IV MSO4/4mg IV Zofran before CT of AB/pelvis/Chest w acute anxiety. 12.5 mg IV Benadryl given which alleviated symptoms. Pt vomited after 324 ASA. Pt painfree when sent to floor. Discussed with : Ping Counseled pt/family regarding: lab results, diagnosis, need for follow-up, rad results - Departure Departure Disposition: Observation Clinical Impression: Chest pain Condition: Stable Critical Care Time: Yes Critical Care Time(excluding separately billable procedures): Critical 30-74 mins
[2021-01-28 14:13] LABS: Absolute Neutrophil Ct (ANC) 11.21 (1.4-6.9); BASOPHIL % 0.3 % (0.0-0.4); Basophil (Absolute #) 0.04 (0-0.4); Eosinophil % 0.5 % (0.00-5.0); Eosinophil (Absolute #) 0.07 (0-0.5); Hematocrit 32.1 % (35-47); Lymphocyte (Absolute #) 0.92 (1.0-4.6); Mean Cell Volume 86.5 fl (78-100); Mean Corpuscular Hemoglobin 24.3 pg (26-32); Mean Platelet Volume 9.8 fl (7.5-11.0); Monocyte (Absolute #) 0.84 (0.0-1.3); Monocytes % 6.4 % (0.0-12.0); Neutrophil % 85.8 % (36.0-66.0); Platelet Count 397 K/mm3 (150-450); Red Blood Count 3.71 M/mm3 (4.1-5.4); Red Cell Distribution Width 16.1 % (11.5-14.0); White Blood Count 13.1 K/mm3 (4.0-10.5)
[2021-01-28 14:24] LABS: AMYLASE 81 U/L (30-110); LIPASE 83 U/L (23-300)
[2021-01-28 14:24] LABS: ALBUMIN 4.4 g/dL (3.5-5.0); BILIRUBIN,TOTAL 0.2 mg/dL (0.2-1.3); Calcium 11.8 mg/dL (8.4-10.2); Creatinine 1 1.14 mg/dL (0.52-1.04); EST GLOMERULAR FILTRATION RATE 48.7 ML/MIN; Potassium 4.1 mmol/L (3.5-5.1); Total Protein 7.7 g/dL (6.3-8.2)
--- NOTE | 2021-01-28 14:34 | XRAY ---
Indication: Chest pain. Comparison: September 11, 2019. Portable chest unchanged again hyperinflated and clear with incidental pulmonary/mediastinal calcified granulomas. Heart not enlarged again with cardiac valve replacement surgery. Bony thorax intact again with osteopenia and degenerative changes. Impression: Continued nonacute chest with chronic features.
[2021-01-28] MEDS ORDERED: MORPHINE SULFATE 4 MG INJ IV ONE (14:44)
[2021-01-28] MEDS ORDERED: Zofran 4 MG/2 ML VIAL IV ONE ×2 (14:45→17:44)
[2021-01-28] MEDS ORDERED: Zofran 4 MG/2 ML VIAL ONE (14:46)
[2021-01-28] MEDS ORDERED: MORPHINE SULFATE 4 MG INJ ONE (14:47)
[2021-01-28 14:49] LABS: ANION GAP 13.1 MEQ/L (5-15)
[2021-01-28] MEDS ORDERED: BENADRYL 50 MG/ML IV ONE (14:58)
[2021-01-28] MEDS ORDERED: BENADRYL 50 MG/ML ONE (14:58)
[2021-01-28 15:05] LABS: INR 1.04 (0.8-3.0); PROTIME 12.3 SECONDS (9.4-12.5)
[2021-01-28 15:08] LABS: PTT 41.4 SECONDS (25.1-36.5)
[2021-01-28 15:30] LABS: Appearance CLOUDY (CLEAR); Bilirubin NEGATIVE (NEGATIVE); Blood NEGATIVE Ery/ul (0-5); Glucose NEGATIVE (NEGATIVE); Ketones NEGATIVE (NEGATIVE); Leukocyte Esterase NEGATIVE (NEGATIVE); Mucus SLIGHT /HPF (NEGATIVE); Nitrite NEGATIVE (NEGATIVE); Protein,Urine Dip NEGATIVE (Negative); Specific Gravity 1.016 (1.005-1.025); Urobilinogen NEGATIVE mg/dL (0-1)
[2021-01-28 15:57] LABS: Slide Review 1 YES
--- NOTE | 2021-01-28 16:41 | XRAY ---
Indication: Chest pain. Multiple contiguous axial images obtained through the chest using 100 cc Isovue 370 contrast. Comparison: August 16, 2017. Lungs again hyperinflated with new 8 mm left upper lobe noncalcified nodule. Elsewhere there remains stable minimal pulmonary emphysema, minimal scattered fibrosis/scarring, and a few left lung calcified granulomas. New inferior lingula subsegmental atelectasis. No infiltrates or effusion. Heart not enlarged with interval aortic valve replacement. Aorta remains moderately arteriosclerotic and ectatic without aneurysm/dissection. Stable chunky mediastinal and tiny right hilar calcified nodes. No pathologic mediastinal/hilar lymphadenopathy. Bony thorax intact again with minimal degenerative changes throughout the spine. CT abdomen/pelvis reported separately. Impression: 1. New indeterminant subcentimeter left upper lobe noncalcified nodule. Finding too small for PET/CT. Recommend follow-up per Fleischner guidelines. 2. Again incidental pulmonary emphysema, scattered fibrosis/scarring, chronic bony findings, and old granulomatous disease.
--- NOTE | 2021-01-28 16:48 | XRAY ---
Indication: Chest pain. Multiple contiguous axial images obtained through the abdomen and pelvis using 100 cc Isovue 370 contrast. Comparison: September 12, 2019. CT chest reported specifically. Stomach is moderately fluid distended. Noncontrasted stomach and bowel loops appear nonobstructed again was scattered colonic diverticulosis. No free fluid/air. Stable gallbladder mildly distended with new punctate stone near the neck of the gallbladder. Stable left adrenal hypertrophy, nonobstructing right renal micro-calculus, left renal cysts, small uterine fundal calcified fibroid, and tiny hepatic/splenic calcified granulomas. Remaining liver, gallbladder, pancreas, spleen, right adrenal gland, kidneys, ureters, bladder, and uterus are unremarkable. There remains moderate scattered arteriosclerotic disease again with 6.2 x 6.4 cm infrarenal AAA unchanged. No pathologic retroperitoneal lymphadenopathy. Osseous structures intact again with mild degenerative changes throughout the spine. Impression: 1. Stable diffuse scattered arteriosclerotic disease with distal AAA. 2. New punctate gallstone. 3. Again incidental uterine calcified fibroid, nonobstructing right renal micro-calculus, left renal cysts, left adrenal hypertrophy, colonic diverticulosis, and old granulomatous disease. 4. Remaining CT abdomen/pelvis with contrast exam negative.
[2021-01-28] MEDS ORDERED: BABY ASPIRIN 81 MG CHEW PO ONE (17:09)
[2021-01-28] MEDS ORDERED: MILK OF MAGNESIA 30 ML PO PRN (18:12)
[2021-01-28] MEDS ORDERED: MAALOX ES 30 ML UNIT DOSE PO PRN (18:12)
[2021-01-28] MEDS ORDERED: Zofran 4 MG/2 ML VIAL IV PRN (18:12)
[2021-01-28] MEDS ORDERED: TYLENOL 325 MG PO PRN (18:12)
[2021-01-28] MEDS ORDERED: Senokot-S Tablet PO PRN (18:12)
[2021-01-28] MEDS ORDERED: Pepcid 20 MG VIAL IV STA (19:44)
[2021-01-28] MEDS ORDERED: Pepcid 20 MG VIAL IV ONE (19:45)
[2021-01-29 05:55] LABS: Risk Ratio 4.8
[2021-01-29] MEDS ORDERED: Ecotrin 325 MG PO SCH (10:00)
[2021-01-29] MEDS ORDERED: ENOXAPARIN SODIUM SQ SCH (10:00)
[2021-01-29] MEDS ORDERED: Protonix 40MG Tablet PO SCH (11:15)
[2021-01-29] MEDS ORDERED: THERAGRAN MULTIVITAMIN PO SCH (11:15)
[2021-01-29] MEDS ORDERED: Cardizem CD 120 MG PO SCH (11:15)
[2021-01-29] MEDS ORDERED: ANTIVERT 25 MG PO SCH (11:15)
[2021-01-29] MEDS ORDERED: VITA-BEE WITH C PO SCH (12:00)
[2021-01-29] MEDS ORDERED: DIOVAN 80 MG PO SCH (12:00)
[2021-01-29 12:05] VITALS: PULSE 98
[2021-01-29 12:06] VITALS: BP 101/60; O2SAT 98
[2021-01-29 12:18] LABS: BASOPHIL % 0.4 % (0.0-0.4); Basophil (Absolute #) 0.04 (0-0.4); Eosinophil % 1.8 % (0.00-5.0); Eosinophil (Absolute #) 0.19 (0-0.5); Hematocrit 29.7 % (35-47); Hemoglobin 8.2 gm/dl (12.0-16.0); Lymphocyte (Absolute #) 1.27 (1.0-4.6); Mean Cell Volume 87.6 fl (78-100); Mean Corpuscular Hemoglobin 24.2 pg (26-32); Mean Corpuscular Hgb Concent. 27.6 g/dl (32-36); Mean Platelet Volume 9.3 fl (7.5-11.0); Monocyte (Absolute #) 1.19 (0.0-1.3); Monocytes % 11.2 % (0.0-12.0); Neutrophil % 74.6 % (36.0-66.0); Platelet Count 303 K/mm3 (150-450); Red Blood Count 3.39 M/mm3 (4.1-5.4); Red Cell Distribution Width 16.3 % (11.5-14.0); White Blood Count 10.6 K/mm3 (4.0-10.5)
[2021-01-29 12:44] LABS: ALKALINE PHOSPHATASE 74 U/L (38-126); BILIRUBIN,TOTAL < 0.10 mg/dL (0.2-1.3); BLOOD UREA NITROGEN 31 mg/dL (7-17); CHLORIDE 90 mmol/L (98-107); Calcium 9.8 mg/dL (8.4-10.2); Creatinine 1 1.44 mg/dL (0.52-1.04); EST GLOMERULAR FILTRATION RATE 37.2 ML/MIN; Glucose 87 mg/dL (74-106); Potassium 4.3 mmol/L (3.5-5.1); SGOT/AST 23 U/L (14-36); SGPT/ALT 11 U/L (0-35); SODIUM 136 mmol/L (137-145); Total Protein 6.9 g/dL (6.3-8.2)
[2021-01-29 12:51] LABS: Carbon Dioxide 39 mmol/L (22-30)
[2021-01-29 12:53] LABS: ANION GAP 11.3 MEQ/L (5-15)
[2021-01-29 13:59] LABS: Slide Review 1 YES
[2021-01-29] MEDS ORDERED: Advair Hfa 115/21 Common canister IH SCH (19:00)
--- NOTE | 2021-01-29 19:12 | PCM.SSS ---
History of Present Illness - Chief Complaint Chief Complaint: epigatric pain for 1 day History of Present Illness: is a 80 year old female.w inferior, mid-sternal chest pain >12 hours. Pain rated 5/10 after 1SL NTG-4mg IV MSO4 in route but has been up to a 10. It is described as a dull ache wo radiation, and nothing makes better or worse. She has had N/V and some diarrhea wo dyspnea/diaphoresis. 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 She denies CAD/MO/Hyperlipidemia. Pt is not anticoagulated. 3L O2 dep at home. She has a h/o AAA wo repair. Timing/Duration: yesterday Activities at Onset: rest Quality: aching, dullness Location: substernal Chest Pain Radiation: no radiation Severity of Pain-Max: severe Severity of Pain-Current: moderate Modifying Factors: Improves With: nitroglycerin, other (MSO4) Associated Symptoms: nausea, vomiting, No palpitations, No heartburn, No abdominal pain, No shortness of breath, No cough, No hurts to breathe, No diaphoresis, No chills, No fever, No fatigue, No weakness, No swelling/lump in chest, No syncope, No rash, No headache, No dizziness, No edema, No back pain Prior Chest Pain/Cardiac Workup: no prior chest pain Nitro Today/Relief: 0.4 mg x 1, provided by EMS Aspirin Treatment Today: no aspirin today - Review of Systems Constitutional: No Fever, No Chills Eyes: No Symptoms Ears, Nose, & Throat: No Symptoms Respiratory: No Cough, No Short Of Breath Cardiac: Chest Pain, No Edema, No Syncope Abdominal/Gastrointestinal: Abdominal Pain, No Nausea, No Vomiting, No Diarrhea Genitourinary Symptoms: No Dysuria Musculoskeletal: No Back Pain, No Neck Pain Skin: No Rash Neurological: No Dizziness, No Focal Weakness, No Sensory Changes Psychological: No Symptoms Endocrine: No Symptoms Hematologic/Lymphatic: No Symptoms Immunological/Allergic: No Symptoms Medications & Allergies Home Medications: Home Medication List Diltiazem HCl [Dilt-Xr] 240 mg PO DAILY 04/04/19 [History Confirmed 01/28/21] Meclizine HCl 25 mg [Antivert 25 mg] 25 mg PO BID 04/04/19 [History Confirmed 01/28/21] Valsartan 80 mg PO DAILY 04/04/19 [History Confirmed 01/28/21] Fluticasone/Umeclidin/Vilanter [Trelegy Ellipta 100-62.5-25] 1 puff IH DAILY 09/11/19 [History Confirmed 01/28/21] Ferrous Fum/Folic Acid/Bcomp,C [Dialyvite 800 with Iron Tab] 1 each PO BID #60 tablet 09/13/19 [Rx Confirmed 01/28/21] Folic Acid/Vit B Complex and C [Folbee Plus Tablet] 5 mg PO DAILY 01/28/21 [History Confirmed 01/28/21] Pantoprazole Sodium 40 mg PO BID 30 Days tablet 01/29/21 [Rx] Allergies/Adverse Reactions: Allergies Allergy/AdvReac Type Severity Reaction Status Date / Time No Known Drug Allergies Allergy Verified 04/04/19 13:35 - Past Medical History Past Medical History: Yes Neurological History: No Pertinent History ENT History: Cataracts Cardiac History: No Pertinent History, Hypertension Respiratory History: COPD Endocrine Medical History: No Pertinent History Musculoskelatal History: No Pertinent History GI Medical History: Ulcer History: No Pertinent History Pyscho-Social History: No Pertinent History Reproductive Disorders: No Pertinent History - Past Surgical History Past Surgical History: Yes Neuro Surgical History: No Pertinent History Cardiac History: No Pertinent History, Valve Replacement GI Surgical History: No Pertinent History Genitourinary Surgical Hx: No Pertinent History Musculskeletal Surgical Hx: No Pertinent History Female Surgical History: No Pertinent History Other Surgical History: Tavrs procedure sees Dr calhoun in [place] - Social History Smoking Status: Former smoker How long have you smoked: 40 Exposure to second hand smoke: No Alcohol: None Drug Use: none Significant Family History: no pertinent family hx - Physical Exam Vital Signs: Vital Signs - 24 hr Temp Pulse Resp BP Pulse Ox 01/29/21 12:05 98 H 20 101/60 98 01/29/21 10:00 97.7 F 98 H 99/59 01/29/21 08:00 98.2 F 96 H 22 98/56 99 01/29/21 07:05 99 01/29/21 03:48 97.8 F 103 H 19 123/69 94 L 01/28/21 23:48 97.9 F 78 16 98/55 100 01/28/21 21:36 97 01/28/21 21:13 97.9 F 106 H 18 129/90 97 General Appearance: no apparent distress, alert Neurologic Exam: alert, oriented x 3, cooperative, normal mood/affect, nml cerebellar function, nml station & gait, sensation nml, No motor deficits Eye Exam: PERRL/EOMI, eyes nml inspection Ears, Nose, Throat Exam: normal ENT inspection, TMs normal, pharynx normal, m oist mucous membranes Neck Exam: normal inspection, non-tender, supple, full range of motion Respiratory Exam: normal breath sounds, lungs clear, No respiratory distress Cardiovascular Exam: regular rate/rhythm, normal heart sounds, normal peripheral pulses Gastrointestinal/Abdomen Exam: soft, normal bowel sounds, No tenderness, No mass Back Exam: normal inspection, normal range of motion, No CVA tenderness, No vertebral tenderness Extremity Exam: normal inspection, normal range of motion, pelvis stable Skin Exam: normal color, warm, dry, No rash Lymphatic Exam: No adenopathy Results - Labs Lab/Micro Results: Lab Results-Last 24 Hours 01/28/21 01/28/21 01/29/21 Range/Units 18:16 19:57 04:40 WBC (4.0-10.5) K/mm3 RBC (4.1-5.4) M/mm3 Hgb (12.0-16.0) gm/dl Hct (35-47) % MCV (78-100) fl MCH (26-32) pg MCHC (32-36) g/dl RDW (11.5-14.0) % Plt Count (150-450) K/mm3 MPV (7.5-11.0) fl Gran % (36.0-66.0) % Eos # (Auto) (0-0.5) Absolute Lymphs (auto) (1.0-4.6) Absolute Monos (auto) (0.0-1.3) Lymphocytes % (24.0-44.0) % Monocytes % (0.0-12.0) % Eosinophils % (0.00-5.0) % Basophils % (0.0-0.4) % Absolute Granulocytes (1.4-6.9) Basophils # (0-0.4) Sodium (137-145) mmol/L Potassium (3.5-5.1) mmol/L Chloride (98-107) mmol/L Carbon Dioxide (22-30) mmol/L Anion Gap (5-15) MEQ/L BUN (7-17) mg/dL Creatinine (0.52-1.04) mg/dL Estimated GFR ML/MIN Glucose (74-106) mg/dL Calcium (8.4-10.2) mg/dL Total Bilirubin (0.2-1.3) mg/dL AST (14-36) U/L ALT (0-35) U/L Alkaline Phosphatase (38-126) U/L Troponin I < 0.012 (0.000-0.034) ng/mL Serum Total Protein (6.3-8.2) g/dL Albumin (3.5-5.0) g/dL Triglycerides 77 (30-150) mg/dL Cholesterol 179 (50-200) mg/dL LDL Cholesterol 123 H (30-100) mg/dL HDL Cholesterol 38 L (40-60) mg/dL Heart Disease Risk Ratio 4.8 SARS-CoV-2 (PCR) NEGATIVE (NEGATIVE) Slides for Path Review 01/29/21 01/29/21 01/29/21 Range/Units 12:10 12:10 12:10 WBC 10.6 H (4.0-10.5) K/mm3 RBC 3.39 L (4.1-5.4) M/mm3 Hgb 8.2 L (12.0-16.0) gm/dl Hct 29.7 L (35-47) % MCV 87.6 (78-100) fl MCH 24.2 L (26-32) pg MCHC 27.6 L (32-36) g/dl RDW 16.3 H (11.5-14.0) % Plt Count 303 (150-450) K/mm3 MPV 9.3 (7.5-11.0) fl Gran % 74.6 H (36.0-66.0) % Eos # (Auto) 0.19 (0-0.5) Absolute Lymphs (auto) 1.27 (1.0-4.6) Absolute Monos (auto) 1.19 (0.0-1.3) Lymphocytes % 12.0 L (24.0-44.0) % Monocytes % 11.2 (0.0-12.0) % Eosinophils % 1.8 (0.00-5.0) % Basophils % 0.4 (0.0-0.4) % Absolute Granulocytes 7.90 H (1.4-6.9) Basophils # 0.04 (0-0.4) Sodium 136 L (137-145) mmol/L Potassium 4.3 (3.5-5.1) mmol/L Chloride 90 L (98-107) mmol/L Carbon Dioxide 39 H (22-30) mmol/L Anion Gap 11.3 (5-15) MEQ/L BUN 31 H (7-17) mg/dL Creatinine 1.44 H (0.52-1.04) mg/dL Estimated GFR 37.2 ML/MIN Glucose 87 (74-106) mg/dL Calcium 9.8 D (8.4-10.2) mg/dL Total Bilirubin < 0.10 L (0.2-1.3) mg/dL AST 23 (14-36) U/L ALT 11 (0-35) U/L Alkaline Phosphatase 74 (38-126) U/L Troponin I < 0.012 (0.000-0.034) ng/mL Serum Total Protein 6.9 (6.3-8.2) g/dL Albumin 4.0 (3.5-5.0) g/dL Triglycerides (30-150) mg/dL Cholesterol (50-200) mg/dL LDL Cholesterol (30-100) mg/dL HDL Cholesterol (40-60) mg/dL Heart Disease Risk Ratio SARS-CoV-2 (PCR) (NEGATIVE) Slides for Path Review YES - Radiology Impressions Radiology Exams & Impressions: Radiology Procedures Category Date Time Status ABDOMEN AND PELVIS W CONTRAST [CT] Stat Exams 01/28/21 14:45 Completed CHEST 1 VIEW (PORTABLE) Stat Exams 01/28/21 13:46 Completed CHEST WITH CONTRAST [CT] Stat Exams 01/28/21 14:46 Completed ECHO W/2D AND DOPPLER [US] Routine Exams 01/29/21 10:55 Taken - Other Procedures and Tests Respiratory Therapy 01/28/21 18:12 Oxygen Nasal Cannula 3 lpm 01/30/21 05:00 EKG ROUTINE 01/31/21 05:00 EKG ROUTINE Assessment/Plan (1) Chest pain Status: Acute Qualifiers: Chest pain type: precordial pain Qualified Code(s): R07.2 - Precordial pain Code(s): R07.9 - CHEST PAIN, UNSPECIFIED (2) GERD (gastroesophageal reflux disease) Status: Acute Qualifiers: Esophagitis presence: without esophagitis Qualified Code(s): K21.9 - Gastro-esophageal reflux disease without esophagitis Code(s): K21.9 - GASTRO-ESOPHAGEAL REFLUX DISEASE WITHOUT ESOPHAGITIS (3) HTN (hypertension) Status: Acute Qualifiers: Hypertension type: primary hypertension Qualified Code(s): I10 - Essential (primary) hypertension Code(s): I10 - ESSENTIAL (PRIMARY) HYPERTENSION Hospital Summary - Hospital Course Hospital Course: Chief Complaint Diagnosis epigatricpain Allergies Allergy/AdvReac Type Severity Reaction Status Date / Time No Known Drug Allergies Allergy Verified 04/04/19 13:35 Vital Signs (Last 24 hours) Temp Pulse Resp BP Pulse Ox 01/29/21 12:05 98 H 20 101/60 98 01/29/21 10:00 97.7 F 98 H 99/59 01/29/21 08:00 98.2 F 96 H 22 98/56 99 01/29/21 07:05 99 01/29/21 03:48 97.8 F 103 H 19 123/69 94 L 01/28/21 23:48 97.9 F 78 16 98/55 100 01/28/21 21:36 97 01/28/21 21:13 97.9 F 106 H 18 129/90 97 Home Medications Medication Instructions Recorded Confirmed Last Taken Type Folic Acid/Vit B Complex and C 5 mg PO DAILY 01/28/21 01/28/21 01/28/21 History [Folbee Plus Tablet] Pantoprazole Sodium 40 mg PO BID 30 Days tablet 01/29/21 Unknown Rx Current Medications Discontinued Medications Generic Name Dose Route Start Last Admin Trade Name Freq PRN Reason Stop Dose Admin Acetaminophen 650 mg 01/28/21 18:12 Tylenol 325 Mg PO 02/27/21 18:11 Q4H PRN PRN PAIN AND/OR FEVER Al Hydrox/Mg Hydrox/Simethicone 30 ml 01/28/21 18:12 Maalox Es 30 Ml Unit Dose PO 02/27/21 18:11 Q4H PRN PRN INDIGESTION Aspirin 324 mg 01/28/21 17:09 01/28/21 17:11 Baby Aspirin 81 Mg Chew PO 01/28/21 17:10 324 mg STAT ONE Administration Aspirin 325 mg 01/29/21 10:00 01/29/21 11:15 Ecotrin 325 Mg PO 02/28/21 09:59 325 mg DAILY BRIDGETTE Administration Diltiazem HCl 240 mg 01/29/21 11:15 01/29/21 11:14 Cardizem Cd 120 Mg PO 02/28/21 11:14 240 mg DAILY BRIDGETTE Administration Diphenhydramine HCl 12.5 mg 01/28/21 14:58 01/28/21 15:17 Benadryl 50 Mg/Ml IV 01/28/21 14:59 12.5 mg STAT ONE Administration Diphenhydramine HCl Confirm 01/28/21 14:58 Benadryl 50 Mg/Ml Administered 01/28/21 14:59 Dose 50 mg .ROUTE .STK-MED ONE Enoxaparin Sodium 40 mg 01/29/21 10:00 01/29/21 11:19 Enoxaparin Sodium SQ 02/28/21 09:59 Not Given DAILY BRIDGETTE Famotidine 40 mg 01/28/21 19:44 01/28/21 19:47 Pepcid 20 Mg Vial IV 01/28/21 19:45 40 mg 1XONLY STA Administration Famotidine Confirm 01/28/21 19:45 Pepcid 20 Mg Vial Administered 01/28/21 19:46 Dose 40 mg IV .STK-MED ONE Magnesium Hydroxide 30 - 60 ml 01/28/21 18:12 Milk Of Magnesia 30 Ml PO 02/27/21 18:11 QDP PRN CONSTIPATION Meclizine HCl 25 mg 01/29/21 11:15 01/29/21 11:14 Antivert 25 Mg PO 02/28/21 11:14 25 mg BID BRIDGETTE Administration Morphine Sulfate 4 mg 01/28/21 14:44 01/28/21 14:48 Morphine Sulfate 4 Mg Inj IV 01/28/21 14:45 4 mg STAT ONE Administration Morphine Sulfate Confirm 01/28/21 14:47 Morphine Sulfate 4 Mg Inj Administered 01/28/21 14:48 Dose 4 mg .ROUTE .STK-MED ONE Multivitamins 1 tab 01/29/21 12:00 01/29/21 11:15 Raquel-Bee With C PO 02/28/21 11:59 1 tab BID BRIDGETTE Administration Multivitamins Therapeutic 1 tab 01/29/21 11:15 01/29/21 11:17 Theragran Multivitamin PO 02/28/21 11:14 1 tab DAILY BRIDGETTE Administration Ondansetron HCl 4 mg 01/28/21 14:45 01/28/21 14:48 Zofran 4 Mg/2 Ml Vial IV 01/28/21 14:46 4 mg STAT ONE Administration Ondansetron HCl Confirm 01/28/21 14:46 Zofran 4 Mg/2 Ml Vial Administered 01/28/21 14:47 Dose 4 mg .ROUTE .STK-MED ONE Ondansetron HCl 4 mg 01/28/21 17:44 01/28/21 17:44 Zofran 4 Mg/2 Ml Vial IV 01/28/21 17:45 4 mg STAT ONE Administration Ondansetron HCl 4 mg 01/28/21 18:12 Zofran 4 Mg/2 Ml Vial IV 02/27/21 18:11 Q4H PRN PRN NAUSEA/VOMITING Pantoprazole Sodium 40 mg 01/29/21 11:15 01/29/21 11:15 Protonix 40mg Tablet PO 02/28/21 11:14 40 mg BID BRIDGETTE Administration Fluticasone/Salmeterol 2 puff 01/29/21 19:00 Advair Hfa 115/ Common Canister* IH 02/28/21 18:59 BIDRT BRIDGETTE Senna/Docusate Sodium 2 udtab 01/28/21 18:12 Senokot-S Tablet PO 02/27/21 18:11 BID PRN PRN CONSTIPATION Valsartan 80 mg 01/29/21 12:00 01/29/21 11:14 Diovan 80 Mg PO 02/28/21 11:59 80 mg DAILY BRIDGETTE Administration Intake & Output (Last 24 hours) 01/27/21 01/28/21 01/29/21 01/30/21 11:59 11:59 11:59 11:59 Intake Total 120 Balance 120 Weight 86.2 kg Laboratory Results (Last 24 hours) 01/29/21 01/29/21 01/29/21 12:10 12:10 12:10 WBC 10.6 H RBC 3.39 L Hgb 8.2 L Hct 29.7 L MCV 87.6 MCH 24.2 L MCHC 27.6 L RDW 16.3 H Plt Count 303 MPV 9.3 Gran % 74.6 H Eos # (Auto) 0.19 Absolute Lymphs (auto) 1.27 Absolute Monos (auto) 1.19 Lymphocytes % 12.0 L Monocytes % 11.2 Eosinophils % 1.8 Basophils % 0.4 Absolute Granulocytes 7.90 H Basophils # 0.04 Sodium 136 L Potassium 4.3 Chloride 90 L Carbon Dioxide 39 H Anion Gap 11.3 BUN 31 H Creatinine 1.44 H Estimated GFR 37.2 Glucose 87 Calcium 9.8 D Total Bilirubin < 0.10 L AST 23 ALT 11 Alkaline Phosphatase 74 Troponin I < 0.012 Serum Total Protein 6.9 Albumin 4.0 Triglycerides Cholesterol LDL Cholesterol HDL Cholesterol Heart Disease Risk Ratio SARS-CoV-2 (PCR) Slides for Path Review YES 01/29/21 01/28/21 01/28/21 04:40 19:57 18:16 WBC RBC Hgb Hct MCV MCH MCHC RDW Plt Count MPV Gran % Eos # (Auto) Absolute Lymphs (auto) Absolute Monos (auto) Lymphocytes % Monocytes % Eosinophils % Basophils % Absolute Granulocytes Basophils # Sodium Potassium Chloride Carbon Dioxide Anion Gap BUN Creatinine Estimated GFR Glucose Calcium Total Bilirubin AST ALT Alkaline Phosphatase Troponin I < 0.012 Serum Total Protein Albumin Triglycerides 77 Cholesterol 179 LDL Cholesterol 123 H HDL Cholesterol 38 L Heart Disease Risk Ratio 4.8 SARS-CoV-2 (PCR) NEGATIVE Slides for Path Review Orders (Last 24 hours) Category Date Time Status Bedrest with BRP/BSC ROUTINE Activity 01/28/21 18:13 Active Code Status Order ROUTINE Care 01/28/21 18:13 Active IV Care Q6H Care 01/28/21 18:13 Active Implement Chest Pain Pathway ROUTINE Care 01/28/21 18:[address] in Observation ROUTINE Care 01/28/21 18:13 Active Suhail Hose, Apply ROUTINE Care 01/28/21 18:13 Active Weight,Daily 0600 Care 01/28/21 18:13 Active Discharge Routine Discharge 01/29/21 Ordered Discharge/Telephone Order Routine Discharge 01/29/21 Active ECHO W/2D AND DOPPLER [US] Routine Exams 01/29/21 10:55 Taken CBC W DIFF Stat Lab 01/29/21 12:10 Completed CMP Stat Lab 01/29/21 12:10 Completed LIPID PROFILE AM.LAB Lab 01/29/21 04:40 Completed SARS-CoV-2 Xpert Express Routine Lab 01/28/21 18:16 Completed TROPONIN Q3H Lab 01/28/21 19:57 Completed TROPONIN Stat Lab 01/29/21 12:10 Completed Aspirin EC 325 mg [Ecotrin 325 MG] Med 01/29/21 10:00 Discontinued 325 mg PO DAILY Diltiazem HCl 120 mg [Cardizem CD 120 MG] Med 01/29/21 11:15 Discontinued 240 mg PO DAILY Enoxaparin Sodium [Enoxaparin Sodium] Med 01/29/21 10:00 Discontinued 40 mg SQ DAILY Famotidine 20 mg Vial [Pepcid 20 MG VIAL] Med 01/28/21 19:45 Discontinued 40 mg IV .STK-MED ONE Famotidine 20 mg Vial [Pepcid 20 MG VIAL] Med 01/28/21 19:44 Discontinued 40 mg IV 1XONLY STA Fluticasone/Salmeterol [Advair Hfa Common Med 01/29/21 19:00 Discontinued canister*] 2 puff IH BIDRT Meclizine HCl 25 mg [Antivert 25 mg] Med 01/29/21 11:15 Discontinued 25 mg PO BID Multivitamins,Therapeutic Tab* [Theragran Multivitamin* Med 01/29/21 11:15 Discontinued ] 1 tab PO DAILY PANTOPRAZOLE 40 mg Tablet [Protonix 40MG Tablet] Med 01/29/21 11:15 Discontinued 40 mg PO BID Valsartan 80 mg [Diovan 80 mg] Med 01/29/21 12:00 Discontinued 80 mg PO DAILY Vitamin B Comp W-C [Raquel-Bee with C] Med 01/29/21 12:00 Discontinued 1 tab PO BID EKG ROUTINE RT 01/28/21 21:45 Completed EKG ROUTINE RT 01/29/21 05:00 Completed EKG ROUTINE RT 01/30/21 05:00 Active EKG ROUTINE RT 01/31/21 05:00 Active Pulse Oximetry .spot check RT 01/29/21 00:48 Active Patient Care Notes (Last 24 hours) 01/29/21 13:10 Respiratory Note by Rosy Randhawa PT'S O2 SAT ON HER HOME 3LPM OXYGEN VIA NASAL CANNULA WHILE AT REST WAS 96%. PT WAS WALKED ON THE 3LPM NASAL CANNULA AND O2 SAT WAS 94%. NURSE AWARE. Initialized on 01/29/21 13:10 - END OF NOTE 01/29/21 12:20 Nursing Note by Negin Kline ROUNDED WITH DR. EUBANKS, PATIENT OKAY TO DISCHARGE LONG ABLE TO AMBULATE OKAY. CALL WITH A FOLLOW UP APPOINTMENT FOR NEXT TUESDAY. Initialized on 01/29/21 12:20 - END OF NOTE - Vitals & Intake/Output Vital Signs: Vital Signs Temperature 97.7 F 01/29/21 10:00 Pulse Rate 98 H 01/29/21 12:05 Respiratory Rate 20 01/29/21 12:05 Blood Pressure 101/60 01/29/21 12:05 O2 Sat by Pulse Oximetry 98 01/29/21 12:05 Intake & Output: Intake & Output 01/27/21 01/28/21 01/29/21 01/30/21 11:59 11:59 11:59 11:59 Intake Total 120 Balance 120 Weight 86.2 kg - Lab Result Diagrams: 01/29/21 12:10 01/29/21 12:10 Lab Results-Last 24 Hrs: Lab Results-Last 24 Hours 01/28/21 01/28/21 01/29/21 Range/Units 18:16 19:57 04:40 WBC (4.0-10.5) K/mm3 RBC (4.1-5.4) M/mm3 Hgb (12.0-16.0) gm/dl Hct (35-47) % MCV (78-100) fl MCH (26-32) pg MCHC (32-36) g/dl RDW (11.5-14.0) % Plt Count (150-450) K/mm3 MPV (7.5-11.0) fl Gran % (36.0-66.0) % Eos # (Auto) (0-0.5) Absolute Lymphs (auto) (1.0-4.6) Absolute Monos (auto) (0.0-1.3) Lymphocytes % (24.0-44.0) % Monocytes % (0.0-12.0) % Eosinophils % (0.00-5.0) % Basophils % (0.0-0.4) % Absolute Granulocytes (1.4-6.9) Basophils # (0-0.4) Sodium (137-145) mmol/L Potassium (3.5-5.1) mmol/L Chloride (98-107) mmol/L Carbon Dioxide (22-30) mmol/L Anion Gap (5-15) MEQ/L BUN (7-17) mg/dL Creatinine (0.52-1.04) mg/dL Estimated GFR ML/MIN Glucose (74-106) mg/dL Calcium (8.4-10.2) mg/dL Total Bilirubin (0.2-1.3) mg/dL AST (14-36) U/L ALT (0-35) U/L Alkaline Phosphatase (38-126) U/L Troponin I < 0.012 (0.000-0.034) ng/mL Serum Total Protein (6.3-8.2) g/dL Albumin (3.5-5.0) g/dL Triglycerides 77 (30-150) mg/dL Cholesterol 179 (50-200) mg/dL LDL Cholesterol 123 H (30-100) mg/dL HDL Cholesterol 38 L (40-60) mg/dL Heart Disease Risk Ratio 4.8 SARS-CoV-2 (PCR) NEGATIVE (NEGATIVE) Slides for Path Review 01/29/21 01/29/21 01/29/21 Range/Units 12:10 12:10 12:10 WBC 10.6 H (4.0-10.5) K/mm3 RBC 3.39 L (4.1-5.4) M/mm3 Hgb 8.2 L (12.0-16.0) gm/dl Hct 29.7 L (35-47) % MCV 87.6 (78-100) fl MCH 24.2 L (26-32) pg MCHC 27.6 L (32-36) g/dl RDW 16.3 H (11.5-14.0) % Plt Count 303 (150-450) K/mm3 MPV 9.3 (7.5-11.0) fl Gran % 74.6 H (36.0-66.0) % Eos # (Auto) 0.19 (0-0.5) Absolute Lymphs (auto) 1.27 (1.0-4.6) Absolute Monos (auto) 1.19 (0.0-1.3) Lymphocytes % 12.0 L (24.0-44.0) % Monocytes % 11.2 (0.0-12.0) % Eosinophils % 1.8 (0.00-5.0) % Basophils % 0.4 (0.0-0.4) % Absolute Granulocytes 7.90 H (1.4-6.9) Basophils # 0.04 (0-0.4) Sodium 136 L (137-145) mmol/L Potassium 4.3 (3.5-5.1) mmol/L Chloride 90 L (98-107) mmol/L Carbon Dioxide 39 H (22-30) mmol/L Anion Gap 11.3 (5-15) MEQ/L BUN 31 H (7-17) mg/dL Creatinine 1.44 H (0.52-1.04) mg/dL Estimated GFR 37.2 ML/MIN Glucose 87 (74-106) mg/dL Calcium 9.8 D (8.4-10.2) mg/dL Total Bilirubin < 0.10 L (0.2-1.3) mg/dL AST 23 (14-36) U/L ALT 11 (0-35) U/L Alkaline Phosphatase 74 (38-126) U/L Troponin I < 0.012 (0.000-0.034) ng/mL Serum Total Protein 6.9 (6.3-8.2) g/dL Albumin 4.0 (3.5-5.0) g/dL Triglycerides (30-150) mg/dL Cholesterol (50-200) mg/dL LDL Cholesterol (30-100) mg/dL HDL Cholesterol (40-60) mg/dL Heart Disease Risk Ratio SARS-CoV-2 (PCR) (NEGATIVE) Slides for Path Review YES - Radiology Exams Ordered Rad Exams-Entire Visit: Radiology Procedures Category Date Time Status ABDOMEN AND PELVIS W CONTRAST [CT] Stat Exams 06/30/21 14:45 Completed CHEST 1 VIEW (PORTABLE) Stat Exams 01/28/21 13:46 Completed CHEST WITH CONTRAST [CT] Stat Exams 01/28/21 14:46 Completed ECHO W/2D AND DOPPLER [US] Routine Exams 01/29/21 10:55 Taken - Procedures and Test Procedures and Tests throughout Hospitalization: Therapy Orders & Screens 01/28/21 18:12 Oxygen Nasal Cannula 3 lpm Comment: 01/28/21 21:45 EKG ROUTINE Comment: 01/29/21 05:00 EKG ROUTINE Comment: 01/30/21 05:00 EKG ROUTINE Comment: 01/31/21 05:00 EKG ROUTINE Comment: Diagnosis: epigatricpain - Discharge Discharge Date: 01/29/21 Disposition: Home, Self-Care Condition: Stable Prescriptions: Continue Diltiazem HCl [Dilt-Xr] 240 mg PO DAILY Meclizine HCl 25 mg [Antivert 25 mg] 25 mg PO BID Valsartan 80 mg PO DAILY Fluticasone/Umeclidin/Vilanter [Trelegy Ellipta 100-62.5-25] 1 puff IH DAILY Ferrous Fum/Folic Acid/Bcomp,C [Dialyvite 800 with Iron Tab] 1 each PO BID #60 tablet Folic Acid/Vit B Complex and C [Folbee Plus Tablet] 5 mg PO DAILY Pantoprazole Sodium 40 mg PO BID 30 Days tablet Instructions: Chest Pain (DC) Follow up with: DB EUBANKS MD [Primary Care Provider] - 02/05/21 11:00 am Forms: Discharge Instructions, Patient Portal Information
[2021-01-29] MEDS ORDERED: IRON PO SCH (22:00)
[2021-01-29] MEDS ORDERED: FERROUS FUM PO SCH (22:00)
[2021-01-29] MEDS ORDERED: FOLIC ACID PO SCH (22:00)
[2021-01-29] MEDS ORDERED: [UNRECOGNIZED DRUG - OTHER] PO SCH (22:00)
[2021-01-30] MEDS ORDERED: NON-FORMULARY ITEM (Folic Acid/Vit B Complex And C [Folbee Plus Tablet] 5 MG) PO SCH (10:00)
[2021-01-30] MEDS ORDERED: DILTIAZEM HCL 240 MG PO SCH (10:00)
[2021-01-30] MEDS ORDERED: NON-FORMULARY ITEM (Fluticasone/Umeclidin/Vilanter [Trelegy Ellipta 100-62.5-25] 1 PUFF) IH SCH (10:00)
== END 2021-01-29 13:40 | disposition home or self-care (01) ==
LOC: ED 13:37 → MED SURG 19:40
PROVIDERS: ADMIT General Practice; ATTEND General Practice
DX: R07.9 Chest pain, unspecified (principal); K21.9 Gastro-esophageal reflux disease without esophagitis; R11.2 Nausea with vomiting, unspecified; R19.7 Diarrhea, unspecified; Z99.81 Dependence on supplemental oxygen; Z79.899 Other long term (current) drug therapy; J44.9 Chronic obstructive pulmonary disease, unspecified; I10 Essential (primary) hypertension; Z20.828 Contact with and (suspected) exposure to other viral communicable diseases
CPT/HCPCS: 36000; 36415; 71045; 71260; 74177; 80053; 80061; 81001; 82150; 83690; 83721; 84484; 85025; 85610; 85730; 93005; 93041; 93306; 94762; 96374; 96375; 96376; 99285; U0003; 93268; J1200; J2270; J2405; A9270-GY; G0378

== ENCOUNTER 2023-01-19 10:30 | Emergency (ER) | payer MEDICARE, OTHER ==
[2023-01-19] MEDS ORDERED: solu-MEDROL 125 MG, Sterile H2O 10 ml 2 ML IV ONE ×2 (10:40)
[2023-01-19] MEDS ORDERED: Zithromax 500 MG/ 250 ML NaCl Premix 500 MG/250 ML IVPB IV STA (10:40)
[2023-01-19] MEDS ORDERED: Sodium Chloride 0.9% 1000 ML 1,000 ML IV STA (10:40)
[2023-01-19] MEDS ORDERED: PROVENTIL 2.5 MG/3 ML NEB IH ONE ×2 (10:40→11:11)
[2023-01-19] MEDS ORDERED: solu-MEDROL ONE (11:03)
[2023-01-19] MEDS ORDERED: Zithromax 500 MG/ 250 ML NaCl Premix 500 MG/250 ML IVPB IV ONE (11:03)
[2023-01-19] MEDS ORDERED: Sterile H2O 10 ml IJ ONE (11:03)
[2023-01-19] MEDS ORDERED: Sodium Chloride 0.9% 1000 ML 1,000 ML ONE (11:03)
[2023-01-19 11:42] LABS: BASOPHIL % 0.5 % (0.0-0.4); Basophil (Absolute #) 0.05 x10^3/uL (0-0.4); Eosinophil % 3.9 % (0.00-5.0); Eosinophil (Absolute #) 0.36 x10^3/uL (0-0.5); Hematocrit 23.5 % (35-47); IMMATURE GRAN # 0.04 x10^3u/L (0.00-0.03); IMMATURE GRAN % 0.4 % (0.00-0.4); Lymphocyte (Absolute #) 1.26 x10^3/uL (1.0-4.6); Lymphocytes % 13.6 % (24.0-44.0); Mean Cell Volume 80.8 fL (78-100); Mean Corpuscular Hemoglobin 19.9 pg (26-32); Mean Corpuscular Hgb Concent. 24.7 g/dL (32-36); Monocyte (Absolute #) 0.74 x10^3/uL (0.0-1.3); Neutrophil % 73.6 % (36.0-66.0); Platelet Count 296 x10^3/uL (150-450); Red Blood Count 2.91 x10^6/uL (4.1-5.4); Red Cell Distribution Width 19.4 % (11.5-14.0); White Blood Count 9.3 x10^3/uL (4.0-10.5)
--- NOTE | 2023-01-19 11:45 | ERPHSYRPT ---
- History of Present Illness Time Seen by Provider: 01/19/23 10:40 Source: patient Exam Limitations: no limitations Patient Subjective Stated Complaint: Patient with c/o weakness with an increase in the past week. EMS states patient wears oxygen at 2L at home continuously and when they arrived at patient's home, she was sating 73% on that 2L. EMS states they are treating SOB as cheif complaint. Triage Nursing Assessment: Patient arrived by ambulance with a duoneb nebulizer on face. She was SOB with labored breathing upon arrival. 02 sats 98% with nebulizer going. Once the nebulizer was finished and patient was put back on her normal 2L per N/C her 02 sats decreased to 87%. Patient placed on 02 @ 5L per N/C at that time and 02 sats increased to 94%. No cough is present. Lung bases and left upper lobe are tight/diminished. Patient is pale. Physician History: Patient here with weakness and increased shortness of breath. No falls or trauma. No fevers or chills. Patient extremely wheezy, hypoxic, increased work of breathing. Patient was driven to the emergency department via EMS. They has already given 1 breathing treatment. Patient's was initially 73% at home on home oxygen Allergies/Adverse Reactions: No Known Drug Allergies Allergy (Verified 01/19/23 10:34) Home Medications: Meclizine HCl 25 mg [Antivert 25 mg] 25 mg PO BID 04/04/19 [History] Valsartan 80 mg PO DAILY 04/04/19 [History] Aspirin EC 81 mg [Ecotrin 81 mg] 1 tab PO DAILY 01/19/23 [History] Pantoprazole Sodium 20 mg PO DAILY 01/19/23 [History] Spironolactone 25 mg [Aldactone 25 MG] 1 tab PO BID 01/19/23 [History] Hx Tetanus, Diphtheria Vaccination/Date Given: Yes Hx Influenza Vaccination/Date Given: No Hx Pneumococcal Vaccination/Date Given: No Immunizations Up to Date: Yes Travel Risk - International Travel Have you traveled outside of the country in past 3 weeks: No - Coronavirus Screening Are you exhibiting any of the following symptoms?: Yes Symptoms: Shortness of Breath Close contact with a COVID-19 positive Pt in past 14-21 Days: No - Vaccine Status Have you recieved a Covid-19 vaccination: Yes Swedish Masseuse: Ardian - Review of Systems Constitutional: No Fever, No Chills Eyes: No Symptoms Ears, Nose, & Throat: No Symptoms Respiratory: Cough, Dyspnea, Dyspnea on Exertion (GENAO) Cardiac: No Chest Pain, No Edema, No Syncope Abdominal/Gastrointestinal: No Abdominal Pain, No Nausea, No Vomiting, No Diarrhea Genitourinary Symptoms: No Dysuria Musculoskeletal: No Back Pain, No Neck Pain Skin: No Rash Neurological: No Dizziness, No Focal Weakness, No Sensory Changes Psychological: No Symptoms Endocrine: No Symptoms All Other Systems: Reviewed and Negative - Past Medical History Pertinent Past Medical History: Yes Neurological History: No Pertinent History ENT History: Cataracts Cardiac History: High Cholesterol, Hypertension Respiratory History: COPD Endocrine Medical History: No Pertinent History Musculoskeletal History: No Pertinent History GI Medical History: GI Bleed, Ulcer History: No Pertinent History Psycho-Social History: No Pertinent History Female Reproductive Disorders: No Pertinent History - Past Surgical History Past Surgical History: Yes Neuro Surgical History: No Pertinent History Cardiac: Cardiac Catheterization, Valve Replacement Gastrointestinal: No Pertinent History Genitourinary: No Pertinent History Musculoskeletal: No Pertinent History Female Surgical History: No Pertinent History Other Surgical History: Tavrs procedure - Social History Smoking Status: Former smoker How long have you smoked: 40 Exposure to second hand smoke: No Drug Use: none Patient Lives Alone: No Significant Family History: no pertinent family hx - Nursing Vital Signs Nursing Vital Signs: Initial Vital Signs Temperature 97.4 F 01/19/23 10:35 Pulse Rate 98 H 01/19/23 10:35 Respiratory Rate 28 H 01/19/23 10:35 Blood Pressure 148/90 01/19/23 10:35 O2 Sat by Pulse Oximetry 98 01/19/23 10:35 Pain Scale Pain Intensity 0 - Physical Exam General Appearance: no apparent distress, alert Eye Exam: PERRL/EOMI, eyes nml inspection Ears, Nose, Throat Exam: normal ENT inspection, TMs normal, pharynx normal, moist mucous membranes Neck Exam: normal inspection, non-tender, supple, full range of motion Respiratory Exam: crackles/rales, wheezing, other (Wheezing, increased work of breathing, shortness of breath throughout), No respiratory distress Cardiovascular Exam: regular rate/rhythm, normal heart sounds, normal peripheral pulses Gastrointestinal/Abdomen Exam: soft, normal bowel sounds, No tenderness, No mass Back Exam: normal inspection, normal range of motion, No CVA tenderness, No vertebral tenderness Extremity Exam: normal inspection, normal range of motion, pelvis stable Neurologic Exam: alert, oriented x 3, cooperative, normal mood/affect, nml cerebellar function, nml station & gait, sensation nml, No motor deficits Skin Exam: normal color, warm, dry, No rash Lymphatic Exam: No adenopathy SpO2: 100 - Course Nursing assessment & vital signs reviewed: Yes EKG Interpreted by Me: Sinus Rhythm Ordered Tests: Active Orders 24 hr Category Date Time Status EKG-ER Only STAT Care 01/19/23 10:40 Completed Brewer [Catheter-[place] Brewer] STAT Care 01/19/23 11:13 Completed IV Insertion STAT Care 01/19/23 10:40 Completed CHEST 1 VIEW (PORTABLE) Stat Exams 01/19/23 10:41 Completed BLOOD CULTURE Routine Lab 01/19/23 11:18 Received BLOOD CULTURE Stat Lab 01/19/23 11:22 Received CBC W DIFF Stat Lab 01/19/23 11:18 Completed CMP Stat Lab 01/19/23 11:18 Completed CULTURE,URINE Stat Lab 01/19/23 11:07 Received D-DIMER QUANTITATIVE Stat Lab 01/19/23 11:18 Completed NT PRO BNPII Stat Lab 01/19/23 11:18 Completed TROPONIN Q4H Lab 01/19/23 11:18 Completed TROPONIN Q4H Lab 01/19/23 14:45 Ordered TROPONIN Q4H Lab 01/19/23 18:45 Ordered UA W/RFX UR CULTURE Stat Lab 01/19/23 11:07 Completed Oxygen Oxymask LPM 7 lpm RT 01/19/23 11:57 Completed Respiratory Therapy Assessment DAILY RT 01/19/23 10:59 Completed Medication Summary Discontinued Medications Generic Name Dose Route Start Last Admin Trade Name Freq PRN Reason Stop Dose Admin Albuterol Sulfate 2.5 mg 01/19/23 10:40 01/19/23 10:59 Albuterol Sulfate 2.5 Mg/3 Ml Neb IH 01/19/23 10:41 2.5 mg STAT ONE Administration Albuterol Sulfate Confirm 01/19/23 11:11 Albuterol Sulfate 2.5 Mg/3 Ml Neb Administered 01/19/23 11:12 Dose 2.5 mg IH .STK-MED ONE Methylprednisolone Sodium 0 mg 01/19/23 10:40 01/19/23 11:06 Succinate 125 mg/ Sterile IV 01/19/23 10:41 125 mg Water 2 ml STAT ONE Administration Sodium Chloride 1,000 mls @ 999 mls/hr 01/19/23 10:40 01/19/23 12:25 Sodium Chloride 0.9% 1000 Ml IV 01/19/23 11:40 Infused .Q1H1M STA Infusion Azithromycin 500 mg in 250 mls @ 250 mls/hr 01/19/23 10:40 01/19/23 12:25 Zithromax 500 Mg/ 250 Ml Nacl Premix IV 01/19/23 11:39 Infused STAT STA Infusion Azithromycin Confirm 01/19/23 11:03 Zithromax 500 Mg/ 250 Ml Nacl Premix Administered 01/19/23 11:04 Dose 500 mg in 250 mls @ ud IV .STK-MED ONE Sodium Chloride Confirm 01/19/23 11:03 Sodium Chloride 0.9% 1000 Ml Administered 01/19/23 11:04 Dose 1,000 mls @ ud .ROUTE .STK-MED ONE Sodium Chloride Confirm 01/19/23 13:28 Sodium Chloride 0.9% 250 Ml Administered 01/19/23 13:29 Dose 250 mls @ ud IV .STK-MED ONE Methylprednisolone Sodium Succinate Confirm 01/19/23 11:03 Methylprednis Sod Succ 125 Mg/2 Ml Vial Administered 01/19/23 11:04 Dose 125 mg .ROUTE .STK-MED ONE Sterile Water Confirm 01/19/23 11:03 Water For Injection,Sterile 10 Ml Vial Administered 01/19/23 11:04 Dose 10 ml IJ .STK-MED ONE Lab/Rad Data: Laboratory Result Diagrams 01/19/23 11:18 01/19/23 11:18 Laboratory Results 01/19/23 01/19/23 01/19/23 Range/Units 12:05 11:18 11:18 WBC (4.0-10.5) x10^3/uL RBC (4.1-5.4) x10^6/uL Hgb (12.0-16.0) g/dL Hct (35-47) % MCV (78-100) fL MCH (26-32) pg MCHC (32-36) g/dL RDW (11.5-14.0) % Plt Count (150-450) x10^3/uL MPV (7.5-11.0) fL Gran % (36.0-66.0) % Immature Gran % (Auto) (0.00-0.4) % Nucleat RBC Rel Count (0.00-0.1) % Eos # (Auto) (0-0.5) x10^3/uL Immature Gran # (Auto) (0.00-0.03) x10^3u/L Absolute Lymphs (auto) (1.0-4.6) x10^3/uL Absolute Monos (auto) (0.0-1.3) x10^3/uL Absolute Nucleated RBC (0.00-0.01) x10^3u/L Lymphocytes % (24.0-44.0) % Monocytes % (0.0-12.0) % Eosinophils % (0.00-5.0) % Basophils % (0.0-0.4) % Absolute Granulocytes (1.4-6.9) x10^3/uL Basophils # (0-0.4) x10^3/uL D-Dimer (0.0-0.50) mg/L Sodium (137-145) mmol/L Potassium (3.5-5.1) mmol/L Chloride (98-107) mmol/L Carbon Dioxide (22-30) mmol/L Anion Gap (5-15) MEQ/L BUN (7-17) mg/dL Creatinine (0.52-1.04) mg/dL Estimated GFR ML/MIN Glucose (74-106) mg/dL Calcium (8.4-10.2) mg/dL Total Bilirubin (0.2-1.3) mg/dL AST (14-36) U/L ALT (0-35) U/L Alkaline Phosphatase (38-126) U/L Troponin I (0.000-0.034) ng/mL NT-Pro-B Natriuret Pep 332 (<300) pg/mL Serum Total Protein (6.3-8.2) g/dL Albumin (3.5-5.0) g/dL Urine Color (Yellow) Urine Appearance (Clear) Urine pH (4.6-8.0) Ur Specific [place] (1.005-1.030) Urine Protein (Negative) Urine Glucose (UA) (Negative) mg/dL Urine Ketones (Negative) Urine Blood (Negative) Urine Nitrite (Negative) Urine Bilirubin (Negative) Urine Urobilinogen (0.2) mg/dL Ur Leukocyte Esterase (Negative) U Hyaline Cast (Auto) (0-2) /LPF Urine Microscopic RBC (0-5) /HPF Urine Microscopic WBC (0-5) /HPF Ur Epithelial Cells (None Seen) /HPF Urine Bacteria (None Seen) /HPF Urine Culture Reflexed (NO) Influenza Type A Ag NEGATIVE (NEGATIVE) Influenza Type B Ag NEGATIVE (NEGATIVE) RSV (PCR) NEGATIVE (NEGATIVE) SARS-CoV-2 (PCR) NEGATIVE (NEGATIVE) Slides for Path Review ABO Group O Rh Factor POSITIVE Antibody Screen NEGATIVE (NEGATIVE) Crossmatch COMPATIBLE (COMPATIBLE) 01/19/23 01/19/23 01/19/23 Range/Units 11:18 11:18 11:18 WBC (4.0-10.5) x10^3/uL RBC (4.1-5.4) x10^6/uL Hgb (12.0-16.0) g/dL Hct (35-47) % MCV (78-100) fL MCH (26-32) pg MCHC (32-36) g/dL RDW (11.5-14.0) % Plt Count (150-450) x10^3/uL MPV (7.5-11.0) fL Gran % (36.0-66.0) % Immature Gran % (Auto) (0.00-0.4) % Nucleat RBC Rel Count (0.00-0.1) % Eos # (Auto) (0-0.5) x10^3/uL Immature Gran # (Auto) (0.00-0.03) x10^3u/L Absolute Lymphs (auto) (1.0-4.6) x10^3/uL Absolute Monos (auto) (0.0-1.3) x10^3/uL Absolute Nucleated RBC (0.00-0.01) x10^3u/L Lymphocytes % (24.0-44.0) % Monocytes % (0.0-12.0) % Eosinophils % (0.00-5.0) % Basophils % (0.0-0.4) % Absolute Granulocytes (1.4-6.9) x10^3/uL Basophils # (0-0.4) x10^3/uL D-Dimer 0.85 H* (0.0-0.50) mg/L Sodium 141 (137-145) mmol/L Potassium 3.9 (3.5-5.1) mmol/L Chloride 90 L (98-107) mmol/L Carbon Dioxide 44 H (22-30) mmol/L Anion Gap 10.9 (5-15) MEQ/L BUN 17 (7-17) mg/dL Creatinine 0.75 (0.52-1.04) mg/dL Estimated GFR > 60.0 ML/MIN Glucose 126 H (74-106) mg/dL Calcium 8.7 (8.4-10.2) mg/dL Total Bilirubin 0.50 (0.2-1.3) mg/dL AST 20 (14-36) U/L ALT 10 (0-35) U/L Alkaline Phosphatase 102 (38-126) U/L Troponin I < 0.012 (0.000-0.034) ng/mL NT-Pro-B Natriuret Pep (<300) pg/mL Serum Total Protein 7.6 (6.3-8.2) g/dL Albumin 3.8 (3.5-5.0) g/dL Urine Color (Yellow) Urine Appearance (Clear) Urine pH (4.6-8.0) Ur Specific [place] (1.005-1.030) Urine Protein (Negative) Urine Glucose (UA) (Negative) mg/dL Urine Ketones (Negative) Urine Blood (Negative) Urine Nitrite (Negative) Urine Bilirubin (Negative) Urine Urobilinogen (0.2) mg/dL Ur Leukocyte Esterase (Negative) U Hyaline Cast (Auto) (0-2) /LPF Urine Microscopic RBC (0-5) /HPF Urine Microscopic WBC (0-5) /HPF Ur Epithelial Cells (None Seen) /HPF Urine Bacteria (None Seen) /HPF Urine Culture Reflexed (NO) Influenza Type A Ag (NEGATIVE) Influenza Type B Ag (NEGATIVE) RSV (PCR) (NEGATIVE) SARS-CoV-2 (PCR) (NEGATIVE) Slides for Path Review ABO Group Rh Factor Antibody Screen (NEGATIVE) Crossmatch (COMPATIBLE) 01/19/23 01/19/23 Range/Units 11:18 11:07 WBC 9.3 (4.0-10.5) x10^3/uL RBC 2.91 L (4.1-5.4) x10^6/uL Hgb 5.8 L* (12.0-16.0) g/dL Hct 23.5 L (35-47) % MCV 80.8 (78-100) fL MCH 19.9 L (26-32) pg MCHC 24.7 L (32-36) g/dL RDW 19.4 H (11.5-14.0) % Plt Count 296 (150-450) x10^3/uL MPV 10.0 (7.5-11.0) fL Gran % 73.6 H (36.0-66.0) % Immature Gran % (Auto) 0.4 (0.00-0.4) % Nucleat RBC Rel Count 0.0 (0.00-0.1) % Eos # (Auto) 0.36 (0-0.5) x10^3/uL Immature Gran # (Auto) 0.04 H (0.00-0.03) x10^3u/L Absolute Lymphs (auto) 1.26 (1.0-4.6) x10^3/uL Absolute Monos (auto) 0.74 (0.0-1.3) x10^3/uL Absolute Nucleated RBC 0.00 (0.00-0.01) x10^3u/L Lymphocytes % 13.6 L (24.0-44.0) % Monocytes % 8.0 (0.0-12.0) % Eosinophils % 3.9 (0.00-5.0) % Basophils % 0.5 (0.0-0.4) % Absolute Granulocytes 6.80 (1.4-6.9) x10^3/uL Basophils # 0.05 (0-0.4) x10^3/uL D-Dimer (0.0-0.50) mg/L Sodium (137-145) mmol/L Potassium (3.5-5.1) mmol/L Chloride (98-107) mmol/L Carbon Dioxide (22-30) mmol/L Anion Gap (5-15) MEQ/L BUN (7-17) mg/dL Creatinine (0.52-1.04) mg/dL Estimated GFR ML/MIN Glucose (74-106) mg/dL Calcium (8.4-10.2) mg/dL Total Bilirubin (0.2-1.3) mg/dL AST (14-36) U/L ALT (0-35) U/L Alkaline Phosphatase (38-126) U/L Troponin I (0.000-0.034) ng/mL NT-Pro-B Natriuret Pep (<300) pg/mL Serum Total Protein (6.3-8.2) g/dL Albumin (3.5-5.0) g/dL Urine Color Yellow (Yellow) Urine Appearance Clear (Clear) Urine pH 8.0 (4.6-8.0) Ur Specific [place] 1.015 (1.005-1.030) Urine Protein Trace A (Negative) Urine Glucose (UA) Negative (Negative) mg/dL Urine Ketones Negative (Negative) Urine Blood Negative (Negative) Urine Nitrite Negative (Negative) Urine Bilirubin Negative (Negative) Urine Urobilinogen 1.0 A (0.2) mg/dL Ur Leukocyte Esterase Negative (Negative) U Hyaline Cast (Auto) 3-5 A (0-2) /LPF Urine Microscopic RBC 0-2 (0-5) /HPF Urine Microscopic WBC 0-2 (0-5) /HPF Ur Epithelial Cells None Seen (None Seen) /HPF Urine Bacteria None Seen (None Seen) /HPF Urine Culture Reflexed YES (NO) Influenza Type A Ag (NEGATIVE) Influenza Type B Ag (NEGATIVE) RSV (PCR) (NEGATIVE) SARS-CoV-2 (PCR) (NEGATIVE) Slides for Path Review YES ABO Group Rh Factor Antibody Screen (NEGATIVE) Crossmatch (COMPATIBLE) - Progress Progress: improved Progress Note: 01/19/23 14:29 differential diagnosis includes: PNA, STEMI, NSTEMI, other infection, musculoskeletal pain, pneumothorax, PE, low Hgb - We will obtain basic labs, fluids, EKG, troponin, chest x-ray - EKG shows no ST changes - my read. See full read below. - O2 saturations consistently greater than 95% on 10 L oxy mask - CXR shows left lower lobe pneumonia, infiltrate versus pneumothorax -My read Patient found to have a hemoglobin of 5.8. Patient will need to be transfused. This process started in the emergency department. Given low hemoglobin, left- sided pneumonia, hypoxia, potential lower GI bleed I do believe patient will need to be transferred to [facility]. Patient in acute respiratory failure secondary to pneumonia, COPD, low hemoglobin. Patient started on azithromycin in the emergency department for this infiltrate. Blood transfusion started. Patient transferred to [facility] after discussing with the ER doctor, Dr. Malu Pittman. After low hemoglobin was found I did perform a rectal exam on the patient. No bright red blood per rectum, no melena, no bleeding hemorrhoids. I was chaperoned by ER nurse, Valencia. D-dimer was elevated which certainly could point to a PE. However given the multitude of other problems this certainly could be causing elevated D-dimer as well. ED critical care statement As staff physician, I have provided critical care. Time: 54 min Criteria for critical illness: Acute respiratory failure secondary to pneumonia, COPD, low hemoglobin Treatment and management provided include: Coordination of management with ETC care team, consultants, and inpatient care team. [id number] assessment of condition and response to therapy. Review and interpretation of emergent diagnostic testing. Medical chart review and completion. Direction and immediate supervision of the following therapy: Critical care was time spent personally by me on the following activities: blood draw for specimens, development of treatment plan with patient or surrogate, discussions with consultants, discussions with primary provider, interpretation of cardiac output measurements, evaluation of patient's response to treatment, examination of patient, obtaining history from patient or surrogate, ordering and performing treatments and interventions, ordering and review of laboratory studies, ordering and review of radiographic studies, pulse oximetry, re-evaluation of patient's condition and review of old charts. This time was independent of all procedures performed. You Acevedo Counseled pt/family regarding: lab results, diagnosis, need for follow-up, rad results Medical Desision Making - Independent Historian Additional History obtained from: Spouse - External Record(s) Reviewed Records reviewed as a part of evaluation & management: Discharge Summary - Discussion of managment Care discussed with:: on-call "doc" Reviewed:: Test results Agreed on:: decision to admit Will see patient: in hospital - Diagnostic Testing Diagnostic test were ordered, analyzed, and reviewed by me: Yes Radiological Interpretation: Reviewed by me - Departure Departure Disposition: Transfer Clinical Impression: Acute respiratory failure, Low hemoglobin, Left lower lobe pneumonia Condition: Stable Critical Care Time: Yes Critical Care Time(excluding separately billable procedures): Critical 30-74 mins Referrals: DB EUBANKS MD [Primary Care Provider] - Follow up/PCP as directed
[2023-01-19 11:49] LABS: Appearance Clear (Clear); Bacteria None Seen /HPF (None Seen); Bilirubin Negative (Negative); Blood Negative (Negative); Epithelial Cells None Seen /HPF (None Seen); Glucose, Urine Negative (Negative); Ketones Negative (Negative); Leukocyte Esterase Negative (Negative); Nitrite Negative (Negative); Protein,Urine Dip Trace (Negative); RBC 0-2 /HPF (0-5); Specific Gravity 1.015 (1.005-1.030); WBC 0-2 /HPF (0-5)
[2023-01-19 11:56] LABS: Hemoglobin 5.8 g/dL (12.0-16.0)
[2023-01-19 11:58] LABS: ALBUMIN 3.8 g/dL (3.5-5.0); ALKALINE PHOSPHATASE 102 U/L (38-126); BLOOD UREA NITROGEN 17 mg/dL (7-17); CHLORIDE 90 mmol/L (98-107); Calcium 8.7 mg/dL (8.4-10.2); Creatinine 1 0.75 mg/dL (0.52-1.04); EST GLOMERULAR FILTRATION RATE > 60.0 ML/MIN; Glucose 126 mg/dL (74-106); Potassium 3.9 mmol/L (3.5-5.1); SGOT/AST 20 U/L (14-36); SGPT/ALT 10 U/L (0-35); SODIUM 141 mmol/L (137-145); Total Protein 7.6 g/dL (6.3-8.2)
[2023-01-19 12:10] LABS: ANION GAP 10.9 MEQ/L (5-15); Carbon Dioxide 44 mmol/L (22-30)
--- NOTE | 2023-01-19 12:17 | XRAY ---
Indication: Pneumonia. Comparison: January 28, 2021 Portable chest demonstrates new large left infiltrate/atelectasis/effusion occupying approximately 50-75% hemithorax and obscuring left heart margin. Remaining heart and right lung unremarkable again with incidental cardiac valve replacement surgery. Bony thorax intact.
[2023-01-19 12:18] LABS: INFLUENZA A NEGATIVE (NEGATIVE); INFLUENZA B NEGATIVE (NEGATIVE); RESPIRATORY SYNCTIAL VIRUS NEGATIVE (NEGATIVE); SARS-CoV-2 Xpert Express NEGATIVE (NEGATIVE)
[2023-01-19 12:42] LABS: Slide Review 1 YES
[2023-01-19 13:20] LABS: ABO TYPING O; Antibody Screen NEGATIVE (NEGATIVE); RH TYPING POSITIVE
[2023-01-19 13:21] LABS: CROSS MATCH (PRBC) COMPATIBLE (COMPATIBLE)
[2023-01-19 13:26] LABS: ADD URINE CULTURE? YES (NO)
[2023-01-19] MEDS ORDERED: Sodium Chloride 0.9% 250 ML 250 ML IV ONE (13:28)
[2023-01-19 14:15] VITALS: BP 158/92; PULSE 105
[2023-01-19 14:35] VITALS: O2SAT 100
== END 2023-01-19 14:10 | disposition short-term general hospital (02) ==
LOC: ED 10:30
DX: J18.9 Pneumonia, unspecified organism (principal); J96.01 Acute respiratory failure with hypoxia; D64.9 Anemia, unspecified; K92.2 Gastrointestinal hemorrhage, unspecified; R53.1 Weakness; E78.5 Hyperlipidemia, unspecified; I10 Essential (primary) hypertension; Z79.899 Other long term (current) drug therapy; Z20.828 Contact with and (suspected) exposure to other viral communicable diseases
CPT/HCPCS: 0241U; 36415; 36430; 51702; 71045; 80053; 81001; 83880; 84484; 85025; 85379; 86850; 86900; 86901; 86922; 87040; 87086; 93005; 94640; 96360; 96365; 96374; 99285; 99291; P9016; J0456; J2930; J7609; A9270-GY